=== PATIENT | female | born 1955 | race Caucasian/White ===

== ENCOUNTER 2018-06-12 03:42 | Inpatient (IN) | payer MEDICARE, MEDICAID ==
[~2018-06-12] VITALS: Ht 165.1 cm; Wt 66.7 kg
[~2018-06-12 03:42] MED LIST: INSUINJ47 SC; LEVEMIR SC; PANT40TA2 PO
[2018-06-12] MEDS ORDERED: ONDANSETRON HCL 4 MG/2 ML VIAL IV ONE (05:45)
[2018-06-12 05:49] LABS: Urine Bacteria FEW /hpf (None Seen); Urine Blood Negative /uL (Negative); Urine Specific Gravity 1.009 (1.001-1.035); Urine WBC 4 /hpf (0 - 5)
[2018-06-12 07:25] LABS: Albumin 2.2 g/dL (3.4-5.0); Anion Gap 9 (5-15); Aspartate Aminotransferase 845 U/L (15-37); BUN/Creatinine Ratio 17.6; Blood Urea Nitrogen 9 mg/dL (7-18); Calcium 7.6 mg/dL (8.5-10.1); Carbon Dioxide 23 mmol/L (21-32); Chloride 103 mmol/L (98-107); GFR African American 158 mL/min; GFR Non-African American 130 mL/min; Glucose 85 mg/dL (74-106); Potassium 3.8 mmol/L (3.5-5.1); Sodium 135 mmol/L (136-145)
[2018-06-12 07:28] LABS: Amylase 67 U/L (25-115); Lipase 494 U/L (73-393)
[2018-06-12 07:36] LABS: Alanine Aminotransferase 1171 U/L (13-56); Alkaline Phosphatase 592 U/L (45-117); Bilirubin, Total 12.9 mg/dL (0.2-1.0); Magnesium 2.3 mg/dL (1.6-2.6); Total Protein 5.8 g/dL (6.4-8.2)
[2018-06-12 07:42] LABS: Hematocrit 36.9 % (36.0-46.0); Hemoglobin 12.3 g/dL (12.2-16.2); INR 0.97 (0.9-1.15); Mean Corpuscular Hemoglobin 29.9 pg (28.0-32.0); Mean Corpuscular Hgb Conc. 33.3 g/dL (32.0-36.0); Mean Corpuscular Volume 89.7 fL (80.0-100.0); Partial Thromboplastin Time 29.4 sec (23.78-33.04); Platelet Count (auto) 293 10^3/uL (140-450); Prothrombin Time 10.4 sec (9.27-12.13); Red Blood Cells 4.12 10^6/uL (4.0-5.20); White Blood Cell 8.4 10^3/uL (4.4-10.8)
[2018-06-12 07:46] LABS: Basophils % (manual) 0 (0.0-2.0); Blast Cells 0; Metamyelocytes % 0; Myelocytes % 0; Promyelocytes % 0; Reactive Lymphocytes 0
[2018-06-12] MEDS ORDERED: NITROGLYCERIN 0.4 MG SL TAB SL PRN (08:45)
[2018-06-12] MEDS ORDERED: LACTULOSE 20Gm/30ML SOLN PO PRN (08:45)
[2018-06-12] MEDS ORDERED: MORPHINE SULFATE 4 MG/ML SYR/VIAL IV PRN (08:45)
[2018-06-12] MEDS ORDERED: DEXTROSE (50%) 50ML SYRG IV PRN (08:45)
[2018-06-12] MEDS: SODIUM CHLORIDE 0.9% 1,000 ML IV SCH ×3 (09:08→22:22)
[2018-06-12] MEDS: PANTOPRAZOLE 40 MG TAB PO SCH (09:11)
[2018-06-12] MEDS: cefTRIAXone 1GM/50ML D5W 50 ML IV SCH (09:11)
[2018-06-12] MEDS: ENOXAPARIN SOD 40 MG/0.4 ML SYRINGE SC SCH (09:11)
[2018-06-12 10:20] LABS: Band Neutrophils % (manual) 3; Eosinophils % (manual) 1 (0-7); Lymphocytes % (manual) 12 (10.0-50.0); Monocytes % (manual) 6 (0-12)
[2018-06-12 12:36] VITALS: BP 123/62
[2018-06-12] MEDS: ACCU-CHEK COMFORT CURVE STRIP VI SCH ×3 (12:57→20:15)
[2018-06-12] MEDS: metroNIDAZOLE 500MG/100ML 100 ML IV SCH ×2 (14:54→22:24)
[2018-06-12 17:21] VITALS: BP 123/62
[2018-06-12] MEDS ORDERED: InsuLIN REG 1unit/0.01ml Soln (100units/ml) SC SCH (20:30)
[2018-06-12 22:00] VITALS: BP 114/60
[2018-06-13] MEDS: ACCU-CHEK COMFORT CURVE STRIP VI SCH ×7 (00:25→23:27)
[2018-06-13] MEDS: InsuLIN REG 1unit/0.01ml Soln (100units/ml) SC SCH ×7 (00:28→23:27)
[2018-06-13] MEDS: MORPHINE SULFATE 4 MG/ML SYR/VIAL IV PRN (00:29)
[2018-06-13] MEDS: SODIUM CHLORIDE 0.9% 1,000 ML IV SCH ×4 (04:39→20:00)
[2018-06-13 05:23] VITALS: BP 116/58
[2018-06-13] MEDS: metroNIDAZOLE 500MG/100ML 100 ML IV SCH ×3 (05:44→20:12)
[2018-06-13 06:40] LABS: Potassium 3.5 mmol/L (3.5-5.1)
[2018-06-13 06:55] LABS: Hematocrit 33.9 % (36.0-46.0); Hemoglobin 11.5 g/dL (12.2-16.2); Mean Corpuscular Hemoglobin 30.7 pg (28.0-32.0); Mean Corpuscular Volume 90.3 fL (80.0-100.0); Platelet Count (auto) 275 10^3/uL (140-450); Red Blood Cells 3.76 10^6/uL (4.0-5.20); Red Cell Distribution Width 16.3 % (11.8-14.3); White Blood Cell 6.5 10^3/uL (4.4-10.8)
[2018-06-13 06:57] LABS: Albumin 1.9 g/dL (3.4-5.0); BUN/Creatinine Ratio 16.3; Bilirubin, Total 11.3 mg/dL (0.2-1.0); Calcium 7.5 mg/dL (8.5-10.1); Total Protein 5.1 g/dL (6.4-8.2)
[2018-06-13 07:03] LABS: Band Neutrophils % (manual) 0; Basophils % (manual) 0 (0.0-2.0); Blast Cells 0; Metamyelocytes % 0; Myelocytes % 0; Promyelocytes % 0; Reactive Lymphocytes 0
[2018-06-13 07:08] LABS: Cholesterol 325 mg/dL (< 200); HDL Cholesterol 7 mg/dL (40-59); LDL Cholesterol 273 mg/dL (< 100); Triglycerides 322 mg/dL (< 150)
[2018-06-13 08:27] VITALS: BP 125/62
[2018-06-13 09:55] LABS: Eosinophils % (manual) 6 (0-7); Lymphocytes % (manual) 17 (10.0-50.0); Monocytes % (manual) 8 (0-12)
[2018-06-13] MEDS: ENOXAPARIN SOD 40 MG/0.4 ML SYRINGE SC SCH (10:00)
[2018-06-13] MEDS: PANTOPRAZOLE 40 MG TAB PO SCH (10:00)
[2018-06-13 10:06] LABS: Hepatitis B Surface Antibody Negative
[2018-06-13 10:42] LABS: Hepatitis A Total Antibody Negative
[2018-06-13] MEDS: cefTRIAXone 1GM/50ML D5W 50 ML IV SCH (11:30)
[2018-06-13 13:00] VITALS: BP 121/58
[2018-06-13 14:31] LABS: Hepatitis A Ab IgM Negative; Hepatitis C Antibody Negative (Negative)
[2018-06-13 14:34] LABS: Hepatitis B Core IgM Positive; Hepatitis B Core Total AB Positive
[2018-06-13 14:35] LABS: Hepatitis B Surface Antigen Positive (Negative)
[2018-06-13 17:00] VITALS: BP 123/65
[2018-06-13] MEDS: hydrOXYzine HCL 10 MG TAB PO PRN (20:11)
[2018-06-13 22:00] VITALS: BP 131/63
[2018-06-14] MEDS: InsuLIN REG 1unit/0.01ml Soln (100units/ml) SC SCH ×6 (03:17→23:52)
[2018-06-14] MEDS: ACCU-CHEK COMFORT CURVE STRIP VI SCH ×6 (03:17→23:52)
[2018-06-14 05:00] VITALS: BP 122/55
[2018-06-14] MEDS: SODIUM CHLORIDE 0.9% 1,000 ML IV SCH ×3 (06:00→20:39)
[2018-06-14] MEDS: metroNIDAZOLE 500MG/100ML 100 ML IV SCH ×3 (06:00→21:38)
[2018-06-14 07:02] LABS: Potassium 3.5 mmol/L (3.5-5.1)
[2018-06-14 07:08] LABS: Albumin 1.9 g/dL (3.4-5.0); Bilirubin, Total 12.4 mg/dL (0.2-1.0); Calcium 7.8 mg/dL (8.5-10.1); Total Protein 4.9 g/dL (6.4-8.2)
[2018-06-14 08:41] VITALS: BP 121/57
[2018-06-14] MEDS: cefTRIAXone 1GM/50ML D5W 50 ML IV SCH (09:00)
[2018-06-14] MEDS: PANTOPRAZOLE 40 MG TAB PO SCH (09:01)
[2018-06-14] MEDS: ENOXAPARIN SOD 40 MG/0.4 ML SYRINGE SC SCH (09:01)
[2018-06-14] MEDS: MORPHINE SULFATE 4 MG/ML SYR/VIAL IV PRN ×2 (12:20→23:52)
[2018-06-14 13:13] VITALS: BP 116/52
[2018-06-14 17:25] VITALS: BP 126/64
[2018-06-14 22:13] VITALS: BP 135/63
[2018-06-15] MEDS: InsuLIN REG 1unit/0.01ml Soln (100units/ml) SC SCH ×5 (04:00→20:50)
[2018-06-15] MEDS: MORPHINE SULFATE 4 MG/ML SYR/VIAL IV PRN ×2 (04:04→15:13)
[2018-06-15] MEDS: SODIUM CHLORIDE 0.9% 1,000 ML IV SCH ×4 (04:21→23:19)
[2018-06-15] MEDS: ACCU-CHEK COMFORT CURVE STRIP VI SCH ×5 (04:21→20:54)
[2018-06-15] MEDS: metroNIDAZOLE 500MG/100ML 100 ML IV SCH ×3 (05:45→21:35)
[2018-06-15 07:27] LABS: Albumin 1.9 g/dL (3.4-5.0)
[2018-06-15 07:32] LABS: Bilirubin, Direct 11.7 mg/dL (0-0.2); Bilirubin, Total 13.9 mg/dL (0.2-1.0); Total Protein 4.9 g/dL (6.4-8.2)
[2018-06-15 08:43] VITALS: BP 111/50
[2018-06-15] MEDS: cefTRIAXone 1GM/50ML D5W 50 ML IV SCH (09:15)
[2018-06-15] MEDS: PANTOPRAZOLE 40 MG TAB PO SCH (09:15)
[2018-06-15] MEDS: ENOXAPARIN SOD 40 MG/0.4 ML SYRINGE SC SCH (09:16)
[2018-06-15] MEDS: NutriHep RTU 240 mL Unflavored PO SCH (10:00)
[2018-06-15] MEDS: ALBUMIN 25% 100 ML IV SCH ×2 (11:58→17:44)
[2018-06-15 12:00] VITALS: BP 122/62
[2018-06-15] MEDS ORDERED: MIDAZOLAM HCL 1MG/1ML-2 ML VIAL ONE (14:07)
[2018-06-15] MEDS ORDERED: fentaNYL CITRATE 100 MCG/2 ML VL ONE (14:08)
[2018-06-15] MEDS ORDERED: LIDOCAINE 2% (LOCAL ANESTH.) PF 5ml SDV ONE (14:14)
[2018-06-15] MEDS ORDERED: GELATIN 1 SPONGE SIZE 100 TOP ONE (14:30)
[2018-06-15] MEDS: ONDANSETRON HCL 4 MG/2 ML VIAL IV PRN (15:12)
[2018-06-15 16:56] VITALS: BP 118/60
[2018-06-15] MEDS ORDERED: INSULIN LANTUS (GLARGINE) 1 /0.01ml (100units/ml) SC ONE (21:00)
[2018-06-15 22:00] VITALS: BP 134/60
[2018-06-16] MEDS: ACCU-CHEK COMFORT CURVE STRIP VI SCH ×7 (00:06→23:57)
[2018-06-16] MEDS: InsuLIN REG 1unit/0.01ml Soln (100units/ml) SC SCH ×6 (00:06→19:53)
[2018-06-16] MEDS: ALBUMIN 25% 100 ML IV SCH ×5 (00:18→23:56)
[2018-06-16] MEDS: MORPHINE SULFATE 4 MG/ML SYR/VIAL IV PRN ×5 (02:32→21:31)
[2018-06-16 05:00] VITALS: BP 125/52
[2018-06-16] MEDS: SODIUM CHLORIDE 0.9% 1,000 ML IV SCH ×4 (05:52→19:19)
[2018-06-16] MEDS: metroNIDAZOLE 500MG/100ML 100 ML IV SCH ×3 (07:15→21:31)
[2018-06-16 07:44] LABS: Basophils # (auto) 0.1 uL; Basophils % (auto) 1.4 % (0.0-2.0); Eosinophils # (auto) 0.1 uL; Eosinophils % (auto) 1.4 % (0.0-7.0); Hematocrit 30.4 % (36.0-46.0); Hemoglobin 10.1 g/dL (12.2-16.2); Lymphocytes # (auto) 0.7 uL; Lymphocytes % (auto) 8.5 % (10.0-50.0); Mean Corpuscular Hemoglobin 30.3 pg (28.0-32.0); Mean Corpuscular Hgb Conc. 33.3 g/dL (32.0-36.0); Mean Corpuscular Volume 90.7 fL (80.0-100.0); Monocytes # (auto) 0.9 uL; Monocytes % (auto) 11.9 % (0.0-12.0); Neutrophils # (auto) 5.9 uL; Neutrophils % (auto) 76.8 % (37.0-80.0); Platelet Count (auto) 256 10^3/uL (140-450); Red Blood Cells 3.35 10^6/uL (4.0-5.20); Red Cell Distribution Width 15.9 % (11.8-14.3); White Blood Cell 7.7 10^3/uL (4.4-10.8)
[2018-06-16] MEDS ORDERED: GASTROGRAFIN 30 ML SOL ONE (07:50)
[2018-06-16 07:59] LABS: Potassium 3.5 mmol/L (3.5-5.1)
[2018-06-16 08:00] VITALS: BP 123/53
[2018-06-16 08:12] LABS: Albumin 3.5 g/dL (3.4-5.0); BUN/Creatinine Ratio 10.6; Bilirubin, Total 14.5 mg/dL (0.2-1.0); Calcium 8.2 mg/dL (8.5-10.1); Total Protein 5.7 g/dL (6.4-8.2)
[2018-06-16] MEDS: PANTOPRAZOLE 40 MG TAB PO SCH (09:37)
[2018-06-16] MEDS: ENOXAPARIN SOD 40 MG/0.4 ML SYRINGE SC SCH (09:37)
[2018-06-16] MEDS: cefTRIAXone 1GM/50ML D5W 50 ML IV SCH (09:37)
[2018-06-16] MEDS ORDERED: IOHEXOL 300 MG/ML 100ML BOTTLE IJ ONE ×2 (09:43→10:03)
[2018-06-16] MEDS: ENTECAVIR 0.5 MG TABLET PO SCH (10:00)
[2018-06-16] MEDS: NutriHep RTU 240 mL Unflavored PO SCH (10:00)
[2018-06-16 12:00] VITALS: BP 117/55
[2018-06-16] MEDS ORDERED: PANTOPRAZOLE 40 MG/10 ML VIAL IV ONE (12:30)
[2018-06-16 16:00] VITALS: BP 121/53
[2018-06-16 22:00] VITALS: BP 127/48
[2018-06-17] MEDS: InsuLIN REG 1unit/0.01ml Soln (100units/ml) SC SCH ×6 (00:09→22:02)
[2018-06-17] MEDS: hydrOXYzine HCL 10 MG TAB PO PRN (00:09)
[2018-06-17] MEDS: SODIUM CHLORIDE 0.9% 1,000 ML IV SCH ×4 (02:34→21:59)
[2018-06-17] MEDS: MORPHINE SULFATE 4 MG/ML SYR/VIAL IV PRN ×3 (02:34→17:37)
[2018-06-17] MEDS: ACCU-CHEK COMFORT CURVE STRIP VI SCH ×5 (04:04→22:00)
[2018-06-17 05:00] VITALS: BP 130/64
[2018-06-17] MEDS: ALBUMIN 25% 100 ML IV SCH (05:24)
[2018-06-17] MEDS: metroNIDAZOLE 500MG/100ML 100 ML IV SCH ×3 (06:44→22:00)
[2018-06-17] MEDS: cefTRIAXone 1GM/50ML D5W 50 ML IV SCH (08:41)
[2018-06-17] MEDS: PANTOPRAZOLE 40 MG/10 ML VIAL IV SCH (08:41)
[2018-06-17] MEDS: ENOXAPARIN SOD 40 MG/0.4 ML SYRINGE SC SCH (08:42)
[2018-06-17] MEDS: ENTECAVIR 0.5 MG TABLET PO SCH (08:46)
[2018-06-17] MEDS: NutriHep RTU 240 mL Unflavored PO SCH (08:46)
[2018-06-17 08:50] VITALS: BP 146/60
[2018-06-17 10:06] LABS: % Iron Saturation 44.4 % (15-50)
[2018-06-17 10:15] LABS: Ferritin 1260.7 ng/mL (10-322); Folate (Folic Acid) 18.08 ng/mL (5.38-24)
[2018-06-17 13:00] VITALS: BP 131/65
[2018-06-17 17:00] VITALS: BP 151/65
[2018-06-17 22:00] VITALS: BP 148/61
[2018-06-18] MEDS: ACCU-CHEK COMFORT CURVE STRIP VI SCH ×6 (00:16→20:20)
[2018-06-18] MEDS: MORPHINE SULFATE 4 MG/ML SYR/VIAL IV PRN ×4 (00:23→20:20)
[2018-06-18] MEDS: InsuLIN REG 1unit/0.01ml Soln (100units/ml) SC SCH ×6 (04:37→20:34)
[2018-06-18] MEDS: ONDANSETRON HCL 4 MG/2 ML VIAL IV PRN ×2 (04:43→20:34)
[2018-06-18] MEDS: SODIUM CHLORIDE 0.9% 1,000 ML IV SCH ×3 (04:44→17:59)
[2018-06-18 05:38] VITALS: BP 138/52
[2018-06-18] MEDS: metroNIDAZOLE 500MG/100ML 100 ML IV SCH ×3 (06:27→21:31)
[2018-06-18 06:29] LABS: Albumin 2.9 g/dL (3.4-5.0); BUN/Creatinine Ratio 9.6; Calcium 7.8 mg/dL (8.5-10.1)
[2018-06-18 06:33] LABS: Bilirubin, Total 15.5 mg/dL (0.2-1.0)
[2018-06-18 08:27] VITALS: BP 138/53
[2018-06-18] MEDS: cefTRIAXone 1GM/50ML D5W 50 ML IV SCH (08:30)
[2018-06-18] MEDS: PANTOPRAZOLE 40 MG/10 ML VIAL IV SCH (09:34)
[2018-06-18] MEDS: ENOXAPARIN SOD 40 MG/0.4 ML SYRINGE SC SCH (09:34)
[2018-06-18] MEDS: NutriHep RTU 240 mL Unflavored PO SCH (10:00)
[2018-06-18] MEDS: ENTECAVIR 0.5 MG TABLET PO SCH (10:00)
[2018-06-18 12:57] VITALS: BP 146/75
[2018-06-18 16:46] VITALS: BP 151/63
[2018-06-18 22:00] VITALS: BP 140/70
[2018-06-19] MEDS: ACCU-CHEK COMFORT CURVE STRIP VI SCH ×6 (00:28→19:49)
[2018-06-19] MEDS: InsuLIN REG 1unit/0.01ml Soln (100units/ml) SC SCH ×6 (00:28→19:49)
[2018-06-19] MEDS: SODIUM CHLORIDE 0.9% 1,000 ML IV SCH ×4 (00:39→20:39)
[2018-06-19] MEDS: ONDANSETRON HCL 4 MG/2 ML VIAL IV PRN ×4 (00:52→19:52)
[2018-06-19] MEDS: MORPHINE SULFATE 4 MG/ML SYR/VIAL IV PRN ×4 (00:52→19:50)
[2018-06-19 05:00] VITALS: BP 144/75
[2018-06-19] MEDS: metroNIDAZOLE 500MG/100ML 100 ML IV SCH ×3 (06:02→21:43)
[2018-06-19 07:53] LABS: Albumin 2.6 g/dL (3.4-5.0); Bilirubin, Total 15.8 mg/dL (0.2-1.0); Calcium 7.6 mg/dL (8.5-10.1)
[2018-06-19 07:55] LABS: Potassium 2.9 mmol/L (3.5-5.1)
[2018-06-19] MEDS ORDERED: POTASSIUM CHL 20MEQ/100ML 100 ML IV ONE (08:45)
[2018-06-19] MEDS ORDERED: POTASSIUM CHL 20 Meq TABLET PO ONE ×2 (08:45→12:00)
[2018-06-19 09:00] VITALS: BP 138/69
[2018-06-19] MEDS: cefTRIAXone 1GM/50ML D5W 50 ML IV SCH (09:28)
[2018-06-19] MEDS: NutriHep RTU 240 mL Unflavored PO SCH (10:00)
[2018-06-19] MEDS: ENTECAVIR 0.5 MG TABLET PO SCH (10:00)
[2018-06-19] MEDS: ENOXAPARIN SOD 40 MG/0.4 ML SYRINGE SC SCH (10:25)
[2018-06-19] MEDS: PANTOPRAZOLE 40 MG/10 ML VIAL IV SCH (10:25)
[2018-06-19 13:18] VITALS: BP 127/67
[2018-06-19 17:00] VITALS: BP 120/60
[2018-06-19 21:52] VITALS: BP 132/64
[2018-06-20] MEDS: InsuLIN REG 1unit/0.01ml Soln (100units/ml) SC SCH ×5 (00:17→16:00)
[2018-06-20] MEDS: ACCU-CHEK COMFORT CURVE STRIP VI SCH ×5 (00:17→16:00)
[2018-06-20] MEDS: SODIUM CHLORIDE 0.9% 1,000 ML IV SCH ×3 (03:19→16:39)
[2018-06-20 04:54] VITALS: BP 135/62
[2018-06-20] MEDS: metroNIDAZOLE 500MG/100ML 100 ML IV SCH ×2 (05:38→14:04)
[2018-06-20] MEDS: MORPHINE SULFATE 4 MG/ML SYR/VIAL IV PRN ×2 (05:45→12:01)
[2018-06-20] MEDS: ONDANSETRON HCL 4 MG/2 ML VIAL IV PRN ×2 (05:46→13:58)
[2018-06-20 06:46] LABS: Potassium 3.7 mmol/L (3.5-5.1)
[2018-06-20 06:53] LABS: Albumin 2.6 g/dL (3.4-5.0); Bilirubin, Total 16.4 mg/dL (0.2-1.0); Calcium 7.8 mg/dL (8.5-10.1); Total Protein 4.9 g/dL (6.4-8.2)
[2018-06-20 09:00] VITALS: BP 132/59
[2018-06-20] MEDS: ENTECAVIR 0.5 MG TABLET PO SCH (10:00)
[2018-06-20] MEDS: NutriHep RTU 240 mL Unflavored PO SCH (10:00)
[2018-06-20] MEDS: PANTOPRAZOLE 40 MG/10 ML VIAL IV SCH (10:04)
[2018-06-20] MEDS: cefTRIAXone 1GM/50ML D5W 50 ML IV SCH (10:04)
[2018-06-20] MEDS: ENOXAPARIN SOD 40 MG/0.4 ML SYRINGE SC SCH (10:05)
[2018-06-20 13:00] VITALS: BP 141/58
== END 2018-06-20 17:00 | disposition home or self-care (01) | DRG 441 ==
LOC: ER 03:42 → EDBD 03:42 → TELE 03:43 → TELE-EAST 11:07
PROVIDERS: ADMIT Internal Medicine; ATTEND Internal Medicine
PROC: 0BBJ3ZX Excision of Left Lower Lung Lobe, Percutaneous Approach, Diagnostic (ICD-10-PCS; principal; 2018-06-15)
DX: B16.9 Acute hepatitis B without delta-agent and without hepatic coma (principal); K85.90 Acute pancreatitis without necrosis or infection, unspecified; K83.1 Obstruction of bile duct; K86.1 Other chronic pancreatitis; C24.9 Malignant neoplasm of biliary tract, unspecified; K74.60 Unspecified cirrhosis of liver; K72.90 Hepatic failure, unspecified without coma; E27.8 Other specified disorders of adrenal gland; E11.649 Type 2 diabetes mellitus with hypoglycemia without coma; K81.9 Cholecystitis, unspecified; E11.40 Type 2 diabetes mellitus with diabetic neuropathy, unspecified; E78.5 Hyperlipidemia, unspecified; F17.210 Nicotine dependence, cigarettes, uncomplicated; S61.011A Laceration without foreign body of right thumb without damage to nail, initial encounter; R91.1 Solitary pulmonary nodule; X58.XXXA Exposure to other specified factors, initial encounter; I10 Essential (primary) hypertension; Z88.5 Allergy status to narcotic agent; Z88.1 Allergy status to other antibiotic agents; Y93.89 Activity, other specified; Y92.89 Other specified places as the place of occurrence of the external cause; Y99.8 Other external cause status
CPT/HCPCS: 10022; 36415; 71045; 71250; 71260; 74176; 74177; 74181; 76705; 77012; 80053; 80061; 80074; 80076; 81001; 82105; 82140; 82150; 82378; 82607; 82728; 82746; 82962; 83036; 83540; 83550; 83690; 83735; 83880; 84484; 85007; 85025; 85027; 85610; 85730; 86038; 86300; 86301; 86304; 86704; 86706; 86708; 86803; 87081; 87340; 87517; 93005; 96372; 96374; 96375; C9113; G0378; J0696; J1815; J2001; J2250; J2405; J3480; J3490; P9047

== ENCOUNTER 2022-01-22 12:57 | Inpatient (IN) | payer MEDICARE, MEDICAID ==
[2022-01-22] VITALS (19 sets, daily range): BP systolic 97–142; BP diastolic 41–56
[~2022-01-22] VITALS: Ht 160 cm; Wt 65.6 kg
[2022-01-22] MEDS ORDERED: SODIUM BICARBONATE 8.4% INJ 50ML SYRINGE ONE ×3 (13:01→18:15)
[2022-01-22] MEDS ORDERED: ETOMIDATE (2MG/ML) 20ML VIAL IV ONE ×2 (13:16→13:45)
[2022-01-22] MEDS ORDERED: PROPOFOL 100 ML IV ONE (13:16)
[2022-01-22] MEDS ORDERED: SUCCINYLCHOLINE CHLORIDE 20 MG/ML 10ML VIAL IV ONE ×3 (13:16→16:00)
[2022-01-22] MEDS ORDERED: SODIUM BICARBONATE 8.4 % INJ 50ML VIAL IV ONE ×5 (13:30→23:00)
[2022-01-22] MEDS: PROPOFOL 100 ML IV SCH (13:30)
[2022-01-22] MEDS ORDERED: InsuLIN REG 1unit/0.01ml Soln (100units/ml) IV ONE ×2 (13:30→14:45)
[2022-01-22 13:36] LABS: Basophils # (auto) 0 10 ^3/uL (0-0.2); Basophils % (auto) 0.1 % (0.0-2.0); Eosinophils # (auto) 0 10 ^3/uL (0-0.8); Lymphocytes # (auto) 1.4 10 ^3/uL (0.4-5.4); Monocytes # (auto) 0.3 10 ^3/uL (0-1.3); Monocytes % (auto) 2.9 % (0.0-12.0); Nucleated Red Blood Cells % 0.4 %
[2022-01-22 13:38] LABS: Eosinophils % (auto) 0.1 % (0.0-7.0); Hematocrit 31.7 % (36.0-46.0); Hemoglobin 9.2 g/dL (12.2-16.2); Mean Corpuscular Hemoglobin 32.7 pg (28.0-32.0); Mean Corpuscular Volume 112.7 fL (80.0-100.0); Neutrophils % (auto) 84.9 % (37.0-80.0); Red Blood Cells 2.81 10^6/uL (4.0-5.20); White Blood Cell 11.8 10^3/uL (4.4-10.8)
[2022-01-22] MEDS ORDERED: SODIUM CHLORIDE 0.9% 1,000 ML IV ONE ×2 (13:45)
[2022-01-22 14:03] LABS: Albumin 2.3 g/dL (3.4-5.0); Calcium 8.2 mg/dL (8.5-10.1); Magnesium 2.6 mg/dL (1.6-2.6)
[2022-01-22 14:06] LABS: Bilirubin, Total 0.5 mg/dL (0.2-1.0); Total Protein 5.9 g/dL (6.4-8.2)
[2022-01-22 14:08] LABS: Urine Bacteria NONE SEEN /hpf (None Seen); Urine Blood TRACE /uL (Negative); Urine Specific Gravity 1.018 (1.001-1.035); Urine WBC 20 /hpf (0 - 5); Urine WBC Clumps PRESENT /hpf (None Seen)
[2022-01-22] MEDS ORDERED: MIDAZOLAM DRIP 50 mg/50mL 50 ML IV SCH (14:15)
[2022-01-22] MEDS ORDERED: DEXTROSE (50%) 50ML SYRG IV PRN ×4 (14:15→17:00)
[2022-01-22] MEDS ORDERED: InsuLIN R (HUMAN) 100 UNITS in SODIUM CHL 0.9% 99 ML IV SCH ×4 (14:15→17:00)
[2022-01-22] MEDS ORDERED: NOREPINEPHRINE 8 MG/250ML KIT 250 ML IV SCH (14:15)
[2022-01-22] MEDS ORDERED: fentaNYL Drip 2500mCg/250mlNS 250 ML IV SCH (14:15)
[2022-01-22 14:20] LABS: Potassium 6.1 mmol/L (3.5-5.1)
[2022-01-22] MEDS ORDERED: cefTRIAXone 1GM/50ML D5W 50 ML IV ONE (14:30)
[2022-01-22] MEDS ORDERED: INSULIN LANTUS (GLARGINE) 1 /0.01ml (100units/ml) SC ONE ×2 (14:30→17:00)
[2022-01-22] MEDS: SODIUM CHLORIDE 0.9% 1,000 ML IV SCH ×3 (14:30→23:00)
[2022-01-22 14:38] LABS: Alcohol, Urine < 3.0 mg/dL (0-10); Amphetamine Screen, Urine NEGATIVE (NEGATIVE); Barbiturate Scree,Urine NEGATIVE (NEGATIVE); Benzodiazephine Screen, Urine NEGATIVE (NEGATIVE); Cannabinoid Screen, Urine NEGATIVE (NEGATIVE); Cocaine Screen, Urine NEGATIVE (NEGATIVE); Opiate Scree,Urine NEGATIVE (NEGATIVE); Phencyclidine Screen, Urine NEGATIVE (NEGATIVE)
[2022-01-22] MEDS ORDERED: MIDAZOLAM HCL 5 MG/ML-1ML VIAL IV ONE (14:45)
[2022-01-22] MEDS ORDERED: ACCU-CHEK COMFORT CURVE STRIP VI SCH ×2 (15:00→18:00)
[2022-01-22] MEDS ORDERED: CALCIUM GLUC 1,000mg/50ml-NS 50 ML IV ONE (15:15)
[2022-01-22] MEDS ORDERED: SODIUM BICARBONATE 8.4% INJ 50ML SYRINGE IV ONE (15:15)
[2022-01-22] MEDS: ACCU-CHEK COMFORT CURVE STRIP VI SCH ×6 (15:17→22:30)
[2022-01-22 15:53] LABS: BUN/Creatinine Ratio 18.7; Calcium 7.6 mg/dL (8.5-10.1); Potassium 4.9 mmol/L (3.5-5.1)
[2022-01-22 16:11] LABS: INR 1.18 (0.9-1.15); Partial Thromboplastin Time 24.4 sec (23.6-33.0)
[2022-01-22] MEDS ORDERED: MIDAZOLAM HCL 2MG/2ML 2ml VIAL (1mg/ml) IV PRN (17:00)
[2022-01-22] MEDS: fentaNYL Drip 2500mCg/250mlNS 250 ML IV SCH (17:00)
[2022-01-22] MEDS ORDERED: NITROGLYCERIN 0.4 MG SL TAB SL PRN (17:00)
[2022-01-22] MEDS: InsuLIN R (HUMAN) 100 UNITS in SODIUM CHL 0.9% 99 ML IV SCH (17:15)
[2022-01-22] MEDS ORDERED: fentaNYL Drip 2500mCg/250mlNS 250 ML IV ONE (17:23)
[2022-01-22] MEDS: NOREPINEPHRINE 8 MG/250ML KIT 250 ML IV SCH (18:13)
[2022-01-22] MEDS ORDERED: MAGNESIUM SULFATE 1GM/100ML 200 ML IV ONE (18:15)
[2022-01-22] MEDS ORDERED: POTASSIUM CHL 20MEQ/100ML 100 ML IV PRN (18:15)
[2022-01-22] MEDS ORDERED: SODIUM CHLORIDE 0.9% 1,000 ML IV SCH ×3 (18:30→21:00)
[2022-01-22 18:45] LABS: Magnesium 1.9 mg/dL (1.6-2.6); Phosphorus 1.3 mg/dL (2.5-4.90)
[2022-01-22 20:00] LABS: BUN/Creatinine Ratio 19.2; Calcium 7.2 mg/dL (8.5-10.1); Potassium 3.5 mmol/L (3.5-5.1)
[2022-01-23] VITALS (68 sets, daily range): BP systolic 93–160; BP diastolic 40–58
[2022-01-23] MEDS: PROPOFOL 100 ML IV SCH ×2 (00:49→06:59)
[2022-01-23] MEDS: InsuLIN R (HUMAN) 100 UNITS in SODIUM CHL 0.9% 99 ML IV SCH ×2 (00:52→22:38)
[2022-01-23] MEDS: ACCU-CHEK COMFORT CURVE STRIP VI SCH ×15 (01:24→22:36)
[2022-01-23 01:32] LABS: BUN/Creatinine Ratio 22.1; Calcium 7.6 mg/dL (8.5-10.1)
[2022-01-23 01:46] LABS: Potassium 2.6 mmol/L (3.5-5.1)
[2022-01-23] MEDS: POTASSIUM CHL 20MEQ/100ML 200 ML IV PRN ×2 (02:32→04:40)
[2022-01-23 02:35] LABS: Basophils # (auto) 0 10 ^3/uL (0-0.2); Eosinophils # (auto) 0 10 ^3/uL (0-0.8); Monocytes # (auto) 0.4 10 ^3/uL (0-1.3); Neutrophils # (auto) 3.6 10 ^3/uL (1.6-8.6); White Blood Cell 4.6 10^3/uL (4.4-10.8)
[2022-01-23 02:45] LABS: Basophils % (auto) 0.4 % (0.0-2.0); Eosinophils % (auto) 0.6 % (0.0-7.0); Hematocrit 21.3 % (36.0-46.0); Hemoglobin 7.6 g/dL (12.2-16.2); Lymphocytes # (auto) 0.5 10 ^3/uL (0.4-5.4); Lymphocytes % (auto) 10.7 % (10.0-50.0); Mean Corpuscular Hemoglobin 32.7 pg (28.0-32.0); Mean Corpuscular Hgb Conc. 35.4 g/dL (32.0-36.0); Mean Corpuscular Volume 92.3 fL (80.0-100.0); Monocytes % (auto) 9.3 % (0.0-12.0); Nucleated Red Blood Cells % 0.2 %; Red Blood Cells 2.31 10^6/uL (4.0-5.20)
[2022-01-23 03:57] LABS: Basophils # (auto) 0 10 ^3/uL (0-0.2); Hemoglobin 8.3 g/dL (12.2-16.2)
[2022-01-23 04:04] LABS: Basophils % (auto) 0.7 % (0.0-2.0); Eosinophils # (auto) 0.2 10 ^3/uL (0-0.8); Eosinophils % (auto) 4.1 % (0.0-7.0); Hematocrit 24.1 % (36.0-46.0); Lymphocytes # (auto) 0.5 10 ^3/uL (0.4-5.4); Lymphocytes % (auto) 10.2 % (10.0-50.0); Mean Corpuscular Hemoglobin 32.8 pg (28.0-32.0); Mean Corpuscular Hgb Conc. 34.6 g/dL (32.0-36.0); Mean Corpuscular Volume 94.8 fL (80.0-100.0); Monocytes # (auto) 0.3 10 ^3/uL (0-1.3); Monocytes % (auto) 6.2 % (0.0-12.0); Neutrophils % (auto) 78.8 % (37.0-80.0); Nucleated Red Blood Cells % 0.1 %; Red Blood Cells 2.54 10^6/uL (4.0-5.20); White Blood Cell 5.1 10^3/uL (4.4-10.8)
[2022-01-23 04:07] LABS: Red Cell Distribution Width 22.5 % (11.8-14.3)
[2022-01-23 04:20] LABS: Albumin 2.1 g/dL (3.4-5.0); BUN/Creatinine Ratio 21.3; Bilirubin, Total 0.3 mg/dL (0.2-1.0); Calcium 7.6 mg/dL (8.5-10.1); Total Protein 5.2 g/dL (6.4-8.2)
[2022-01-23] MEDS: SODIUM CHLORIDE 0.9% 1,000 ML IV SCH (06:08)
[2022-01-23 08:06] LABS: Calcium 7.2 mg/dL (8.5-10.1); Potassium 4.1 mmol/L (3.5-5.1)
[2022-01-23 08:08] LABS: BUN/Creatinine Ratio 21.8
[2022-01-23 09:57] LABS: Magnesium 1.9 mg/dL (1.6-2.6); Phosphorus 1.4 mg/dL (2.5-4.90)
[2022-01-23] MEDS ORDERED: levoFLOXacin 500MG 100 ML IV SCH ×2 (10:00)
[2022-01-23] MEDS ORDERED: ENOXAPARIN SOD 30 MG/0.3 ML SYRINGE SC SCH (10:00)
[2022-01-23] MEDS: INSULIN LANTUS (GLARGINE) 1 /0.01ml (100units/ml) SC SCH (10:00)
[2022-01-23] MEDS ORDERED: INSULIN LANTUS (GLARGINE) 1 /0.01ml (100units/ml) SC SCH (10:00)
[2022-01-23] MEDS: CIPROFLOXACIN 400MG/200ML 200 ML IV SCH ×2 (11:38→21:46)
[2022-01-23] MEDS: D5W/SOD CHL 0.45% 1,000 ML IV SCH ×2 (11:38→21:14)
[2022-01-23] MEDS: NOREPINEPHRINE 8 MG/250ML KIT 250 ML IV SCH (16:55)
[2022-01-23] MEDS: fentaNYL Drip 2500mCg/250mlNS 250 ML IV SCH (16:55)
[2022-01-23 21:34] LABS: BUN/Creatinine Ratio 18.9; Calcium 7.3 mg/dL (8.5-10.1); Potassium 3.2 mmol/L (3.5-5.1)
[2022-01-23] MEDS ORDERED: POTASSIUM CHL 20 Meq TABLET PO ONE (22:15)
[2022-01-23] MEDS ORDERED: POTASSIUM EFFERVESENT TAB 25 MEQ GT ONE (22:30)
[2022-01-24] VITALS (102 sets, daily range): BP systolic 136–180; BP diastolic 46–66
[2022-01-24] MEDS: ACCU-CHEK COMFORT CURVE STRIP VI SCH ×11 (00:05→23:52)
[2022-01-24] MEDS: InsuLIN R (HUMAN) 100 UNITS in SODIUM CHL 0.9% 99 ML IV SCH (00:11)
[2022-01-24] MEDS ORDERED: InsuLIN R (HUMAN) 100 UNITS in SODIUM CHL 0.9% 99 ML IV SCH (01:30)
[2022-01-24] MEDS: PROPOFOL 100 ML IV SCH (01:43)
[2022-01-24 03:49] LABS: Basophils # (auto) 0 10 ^3/uL (0-0.2); Eosinophils # (auto) 0 10 ^3/uL (0-0.8); Lymphocytes # (auto) 0.9 10 ^3/uL (0.4-5.4); Monocytes # (auto) 0.3 10 ^3/uL (0-1.3)
[2022-01-24 03:50] LABS: Basophils % (auto) 0.2 % (0.0-2.0); Eosinophils % (auto) 0.3 % (0.0-7.0); Hematocrit 21.2 % (36.0-46.0); Hemoglobin 7.4 g/dL (12.2-16.2); Mean Corpuscular Hemoglobin 33.2 pg (28.0-32.0); Mean Corpuscular Hgb Conc. 35.1 g/dL (32.0-36.0); Mean Corpuscular Volume 94.6 fL (80.0-100.0); Monocytes % (auto) 9.2 % (0.0-12.0); Neutrophils # (auto) 2.1 10 ^3/uL (1.6-8.6); Neutrophils % (auto) 62.3 % (37.0-80.0); Nucleated Red Blood Cells % 0.1 %; Red Blood Cells 2.24 10^6/uL (4.0-5.20); White Blood Cell 3.3 10^3/uL (4.4-10.8)
[2022-01-24 04:05] LABS: BUN/Creatinine Ratio 18.4; Calcium 7.5 mg/dL (8.5-10.1); Potassium 3.8 mmol/L (3.5-5.1)
[2022-01-24 05:57] LABS: Red Cell Distribution Width 22.8 % (11.8-14.3)
[2022-01-24] MEDS: D5W/SOD CHL 0.45% 1,000 ML IV SCH (06:09)
[2022-01-24] MEDS: CIPROFLOXACIN 400MG/200ML 200 ML IV SCH ×2 (09:53→21:00)
[2022-01-24] MEDS: INSULIN LANTUS (GLARGINE) 1 /0.01ml (100units/ml) SC SCH (10:22)
[2022-01-24] MEDS: hydrALAZINE HCL 20 MG/ML VL IV PRN ×3 (10:26→20:51)
[2022-01-24] MEDS ORDERED: DEXTROSE (50%) 50ML SYRG IV PRN (11:15)
[2022-01-24] MEDS: SODIUM CHLORIDE 0.9% 1,000 ML IV SCH ×2 (11:27→20:48)
[2022-01-24] MEDS: InsuLIN REG 1unit/0.01ml Soln (100units/ml) SC SCH ×2 (12:17→17:46)
[2022-01-24] MEDS: NOREPINEPHRINE 8 MG/250ML KIT 250 ML IV SCH (17:00)
[2022-01-24] MEDS: fentaNYL Drip 2500mCg/250mlNS 250 ML IV SCH (17:00)
[2022-01-24 19:40] LABS: White Blood Cell 2.5 10^3/uL (4.4-10.8)
[2022-01-24 19:41] LABS: Basophils # (auto) 0 10 ^3/uL (0-0.2); Basophils % (auto) 0.2 % (0.0-2.0); Eosinophils # (auto) 0 10 ^3/uL (0-0.8); Eosinophils % (auto) 0.3 % (0.0-7.0); Hematocrit 22.3 % (36.0-46.0); Hemoglobin 7.8 g/dL (12.2-16.2); Lymphocytes # (auto) 0.6 10 ^3/uL (0.4-5.4); Lymphocytes % (auto) 23.9 % (10.0-50.0); Mean Corpuscular Hemoglobin 32.9 pg (28.0-32.0); Mean Corpuscular Hgb Conc. 34.8 g/dL (32.0-36.0); Mean Corpuscular Volume 94.6 fL (80.0-100.0); Monocytes # (auto) 0.3 10 ^3/uL (0-1.3); Monocytes % (auto) 10.4 % (0.0-12.0); Neutrophils # (auto) 1.7 10 ^3/uL (1.6-8.6); Neutrophils % (auto) 65.2 % (37.0-80.0); Nucleated Red Blood Cells % 0.2 %; Red Blood Cells 2.36 10^6/uL (4.0-5.20)
[2022-01-24 19:47] LABS: Red Cell Distribution Width 23.2 % (11.8-14.3)
[2022-01-24 19:55] LABS: Albumin 1.8 g/dL (3.4-5.0); Calcium 7.3 mg/dL (8.5-10.1); Potassium 3.5 mmol/L (3.5-5.1)
[2022-01-24 20:03] LABS: BUN/Creatinine Ratio 16.4; Bilirubin, Total 0.3 mg/dL (0.2-1.0); CRP High Sensitivity 8.41 mg/dL (< 0.3); Pre Albumin 7.9 mg/dL (20.0-40.0); Total Protein 5.1 g/dL (6.4-8.2)
[2022-01-24 20:05] LABS: Thyroid Stimulating Hormone 1.01 uIU/mL (0.358-3.74)
[2022-01-24 20:41] LABS: % Iron Saturation 18.7 % (15-50)
[2022-01-24 21:34] LABS: Ferritin 640.3 ng/mL (10-322); Free T4 (Free Thyroxine) 1.09 ng/dL (0.89-1.76)
[2022-01-25] VITALS (78 sets, daily range): BP systolic 125–174; BP diastolic 36–68
[2022-01-25] MEDS: MORPHINE SULFATE INJ 2 MG/ml SYRG IV PRN (00:35)
[2022-01-25] MEDS: hydrALAZINE HCL 20 MG/ML VL IV PRN ×3 (01:45→12:58)
[2022-01-25] MEDS: ACCU-CHEK COMFORT CURVE STRIP VI SCH ×3 (05:14→20:08)
[2022-01-25] MEDS: InsuLIN REG 1unit/0.01ml Soln (100units/ml) SC SCH ×4 (05:22→20:11)
[2022-01-25] MEDS: SODIUM CHLORIDE 0.9% 1,000 ML IV SCH (09:12)
[2022-01-25] MEDS: CIPROFLOXACIN 400MG/200ML 200 ML IV SCH (09:29)
[2022-01-25] MEDS: INSULIN LANTUS (GLARGINE) 1 /0.01ml (100units/ml) SC SCH (10:00)
[2022-01-25] MEDS ORDERED: SODIUM CHLORIDE 0.9% 1,000 ML IV SCH (11:30)
[2022-01-25] MEDS: PROPOFOL 100 ML IV SCH (12:36)
[2022-01-25 13:02] LABS: Basophils # (auto) 0 10 ^3/uL (0-0.2); Eosinophils # (auto) 0 10 ^3/uL (0-0.8); Lymphocytes # (auto) 0.4 10 ^3/uL (0.4-5.4)
[2022-01-25 13:04] LABS: Basophils % (auto) 1.7 % (0.0-2.0); Eosinophils % (auto) 0.3 % (0.0-7.0); Hematocrit 23.1 % (36.0-46.0); Hemoglobin 7.9 g/dL (12.2-16.2); Lymphocytes % (auto) 20.9 % (10.0-50.0); Mean Corpuscular Hemoglobin 33.2 pg (28.0-32.0); Mean Corpuscular Hgb Conc. 34.1 g/dL (32.0-36.0); Mean Corpuscular Volume 97.3 fL (80.0-100.0); Monocytes # (auto) 0.4 10 ^3/uL (0-1.3); Monocytes % (auto) 17.3 % (0.0-12.0); Neutrophils # (auto) 1.3 10 ^3/uL (1.6-8.6); Neutrophils % (auto) 59.8 % (37.0-80.0); Nucleated Red Blood Cells % 0.5 %; Red Blood Cells 2.38 10^6/uL (4.0-5.20); Red Cell Distribution Width 23.4 % (11.8-14.3); White Blood Cell 2.1 10^3/uL (4.4-10.8)
[2022-01-25 13:25] LABS: BUN/Creatinine Ratio 16.2; Calcium 7.6 mg/dL (8.5-10.1); Magnesium 1.7 mg/dL (1.6-2.6); Potassium 3.7 mmol/L (3.5-5.1)
[2022-01-25] MEDS ORDERED: MAGNESIUM SULFATE 1GM/100ML 200 ML IV ONE (13:58)
[2022-01-25] MEDS: SOD CHL 0.45% 1,000 ML IV SCH (14:00)
[2022-01-25] MEDS: MAGNESIUM SULFATE 1GM/100ML 100 ML IV SCH ×2 (14:19→15:05)
[2022-01-25] MEDS: NOREPINEPHRINE 8 MG/250ML KIT 250 ML IV SCH (15:54)
[2022-01-25] MEDS: POTASSIUM CHL 20MEQ/100ML 100 ML IV SCH ×2 (15:54→18:00)
[2022-01-25] MEDS: fentaNYL Drip 2500mCg/250mlNS 250 ML IV SCH (15:54)
[2022-01-26] VITALS (94 sets, daily range): BP systolic 117–177; BP diastolic 39–65
[2022-01-26] MEDS: ACCU-CHEK COMFORT CURVE STRIP VI SCH ×5 (01:43→23:31)
[2022-01-26] MEDS: InsuLIN REG 1unit/0.01ml Soln (100units/ml) SC SCH ×5 (01:44→23:31)
[2022-01-26] MEDS: CIPROFLOXACIN 400MG/200ML 200 ML IV SCH (01:45)
[2022-01-26] MEDS: hydrALAZINE HCL 20 MG/ML VL IV PRN ×2 (02:04→10:45)
[2022-01-26] MEDS: SOD CHL 0.45% 1,000 ML IV SCH ×2 (03:41→16:25)
[2022-01-26 08:19] LABS: Hematocrit 23.4 % (36.0-46.0)
[2022-01-26 08:21] LABS: Mean Corpuscular Hemoglobin 33.4 pg (28.0-32.0); Mean Corpuscular Hgb Conc. 34.2 g/dL (32.0-36.0); Mean Corpuscular Volume 97.5 fL (80.0-100.0)
[2022-01-26 08:23] LABS: INR 1.04 (0.9-1.15); Partial Thromboplastin Time 24.1 sec (23.6-33.0); Red Cell Distribution Width 23.7 % (11.8-14.3)
[2022-01-26 08:25] LABS: Albumin 1.8 g/dL (3.4-5.0); Basophils % (manual) 0 (0.0-2.0); Blast Cells 0; Calcium 7.9 mg/dL (8.5-10.1); Eosinophils % (manual) 0 (0-7); Myelocytes % 0; Potassium 4.5 mmol/L (3.5-5.1); Promyelocytes % 0; Reactive Lymphocytes 0; White Blood Cell 1.8 10^3/uL (4.4-10.8)
[2022-01-26 08:27] LABS: BUN/Creatinine Ratio 14.4
[2022-01-26 08:29] LABS: Bilirubin, Total 0.4 mg/dL (0.2-1.0)
[2022-01-26 08:33] LABS: Folate (Folic Acid) > 24.00 ng/mL (5.38-24)
[2022-01-26] MEDS ORDERED: CEFTRIAXONE SODIUM 2 GM in D5W 5% 50 ML IV ONE (10:15)
[2022-01-26 10:21] LABS: Band Neutrophils % (manual) 2; Lymphocytes % (manual) 24 (10.0-50.0); Metamyelocytes % 1; Monocytes % (manual) 23 (0-12)
[2022-01-26] MEDS: INSULIN LANTUS (GLARGINE) 1 /0.01ml (100units/ml) SC SCH (10:37)
[2022-01-26] MEDS: NYSTATIN (MOUTH-THROAT) 500,000 UNITS/5 ML SUSP MT SCH ×3 (12:09→21:28)
[2022-01-26] MEDS ORDERED: IOHEXOL 350 MG/ML 100ML IJ ONE (13:09)
[2022-01-26] MEDS ORDERED: PANTOPRAZOLE 40 MG/10 ML VIAL INJ IV ONE (13:45)
[2022-01-26] MEDS: PROPOFOL 100 ML IV SCH (13:45)
[2022-01-26] MEDS: NOREPINEPHRINE 8 MG/250ML KIT 250 ML IV SCH (17:00)
[2022-01-26] MEDS: fentaNYL Drip 2500mCg/250mlNS 250 ML IV SCH (18:10)
[2022-01-27] VITALS (64 sets, daily range): BP systolic 130–181; BP diastolic 42–71
[2022-01-27 04:02] LABS: White Blood Cell 2.3 10^3/uL (4.4-10.8)
[2022-01-27 04:08] LABS: Hematocrit 20.2 % (36.0-46.0); Mean Corpuscular Hemoglobin 33.5 pg (28.0-32.0); Mean Corpuscular Volume 98.4 fL (80.0-100.0); Red Blood Cells 2.06 10^6/uL (4.0-5.20)
[2022-01-27 04:20] LABS: Calcium 6.9 mg/dL (8.5-10.1); Potassium 3.7 mmol/L (3.5-5.1)
[2022-01-27 04:24] LABS: BUN/Creatinine Ratio 13.5
[2022-01-27 04:54] LABS: Basophils % (manual) 0 (0.0-2.0); Blast Cells 0; Eosinophils % (manual) 0 (0-7); Hemoglobin 6.9 g/dL (12.2-16.2); Promyelocytes % 0; Reactive Lymphocytes 0; Red Cell Distribution Width 23.8 % (11.8-14.3)
[2022-01-27 05:18] LABS: Lymphocytes % (manual) 29 (10.0-50.0)
[2022-01-27 05:31] LABS: Band Neutrophils % (manual) 5; Metamyelocytes % 1; Monocytes % (manual) 29 (0-12); Myelocytes % 4
[2022-01-27] MEDS: ACCU-CHEK COMFORT CURVE STRIP VI SCH ×3 (06:04→18:02)
[2022-01-27] MEDS: InsuLIN REG 1unit/0.01ml Soln (100units/ml) SC SCH ×3 (06:05→18:00)
[2022-01-27] MEDS: NYSTATIN (MOUTH-THROAT) 500,000 UNITS/5 ML SUSP MT SCH ×4 (06:22→21:59)
[2022-01-27 06:45] LABS: Basophils # (auto) 0 10 ^3/uL (0-0.2); Basophils % (auto) 0.3 % (0.0-2.0); Eosinophils # (auto) 0 10 ^3/uL (0-0.8); Eosinophils % (auto) 0.4 % (0.0-7.0); Hematocrit 22.7 % (36.0-46.0); Hemoglobin 7.7 g/dL (12.2-16.2); Lymphocytes # (auto) 0.6 10 ^3/uL (0.4-5.4); Lymphocytes % (auto) 25.6 % (10.0-50.0); Mean Corpuscular Hemoglobin 33.4 pg (28.0-32.0); Mean Corpuscular Hgb Conc. 33.9 g/dL (32.0-36.0); Mean Corpuscular Volume 98.4 fL (80.0-100.0); Monocytes # (auto) 1.2 10 ^3/uL (0-1.3); Neutrophils # (auto) 0.6 10 ^3/uL (1.6-8.6); Neutrophils % (auto) 24.2 % (37.0-80.0); Nucleated Red Blood Cells % 0.4 %; Red Blood Cells 2.31 10^6/uL (4.0-5.20); White Blood Cell 2.5 10^3/uL (4.4-10.8)
[2022-01-27 06:47] LABS: Monocytes % (auto) 49.5 % (0.0-12.0)
[2022-01-27] MEDS: CEFTRIAXONE SODIUM 2 GM in D5W 5% 50 ML IV SCH (10:12)
[2022-01-27] MEDS: PANTOPRAZOLE 40 MG/10 ML VIAL INJ IV SCH (10:12)
[2022-01-27] MEDS: INSULIN LANTUS (GLARGINE) 1 /0.01ml (100units/ml) SC SCH (10:33)
[2022-01-27] MEDS: hydrALAZINE HCL 20 MG/ML VL IV PRN (13:38)
[2022-01-27] MEDS: PROPOFOL 100 ML IV SCH (13:45)
[2022-01-27] MEDS ORDERED: metroNIDAZOLE 500MG/100ML 100 ML IV ONE (15:15)
[2022-01-27] MEDS: fentaNYL Drip 2500mCg/250mlNS 250 ML IV SCH (17:00)
[2022-01-27] MEDS: NOREPINEPHRINE 8 MG/250ML KIT 250 ML IV SCH (17:00)
[2022-01-27] MEDS: metroNIDAZOLE 500MG/100ML 100 ML IV SCH (21:59)
[2022-01-28] VITALS (23 sets, daily range): BP systolic 127–162; BP diastolic 50–66
[2022-01-28] MEDS: ACCU-CHEK COMFORT CURVE STRIP VI SCH ×4 (00:04→18:04)
[2022-01-28] MEDS: metroNIDAZOLE 500MG/100ML 100 ML IV SCH ×3 (05:15→22:52)
[2022-01-28] MEDS: NYSTATIN (MOUTH-THROAT) 500,000 UNITS/5 ML SUSP MT SCH ×4 (05:15→22:51)
[2022-01-28] MEDS: InsuLIN REG 1unit/0.01ml Soln (100units/ml) SC SCH ×4 (05:31→18:00)
[2022-01-28] MEDS: CEFTRIAXONE SODIUM 2 GM in D5W 5% 50 ML IV SCH (09:46)
[2022-01-28] MEDS: PANTOPRAZOLE 40 MG/10 ML VIAL INJ IV SCH (09:46)
[2022-01-28] MEDS: amLODIPine BESYLATE 5 MG TAB PO SCH (09:48)
[2022-01-28] MEDS: INSULIN LANTUS (GLARGINE) 1 /0.01ml (100units/ml) SC SCH (10:00)
[2022-01-28] MEDS: PROPOFOL 100 ML IV SCH (13:45)
[2022-01-28 16:32] LABS: Hematocrit 23.2 % (36.0-46.0); Magnesium 2.1 mg/dL (1.6-2.6); Mean Corpuscular Volume 96.6 fL (80.0-100.0); Potassium 3.5 mmol/L (3.5-5.1); White Blood Cell 4.1 10^3/uL (4.4-10.8)
[2022-01-28 16:33] LABS: Mean Corpuscular Hemoglobin 33.4 pg (28.0-32.0); Mean Corpuscular Hgb Conc. 34.5 g/dL (32.0-36.0); Red Cell Distribution Width 23.4 % (11.8-14.3)
[2022-01-28 16:34] LABS: BUN/Creatinine Ratio 9.7; Basophils % (manual) 0 (0.0-2.0); Blast Cells 0; Eosinophils % (manual) 0 (0-7); Phosphorus 2.8 mg/dL (2.5-4.90); Promyelocytes % 0
[2022-01-28] MEDS: NOREPINEPHRINE 8 MG/250ML KIT 250 ML IV SCH (17:00)
[2022-01-28] MEDS: fentaNYL Drip 2500mCg/250mlNS 250 ML IV SCH (17:00)
[2022-01-28 19:25] LABS: Band Neutrophils % (manual) 10; Lymphocytes % (manual) 30 (10.0-50.0); Metamyelocytes % 3; Monocytes % (manual) 24 (0-12); Myelocytes % 1; Reactive Lymphocytes 2
[2022-01-29] MEDS: ACCU-CHEK COMFORT CURVE STRIP VI SCH ×4 (00:19→17:29)
[2022-01-29] MEDS: InsuLIN REG 1unit/0.01ml Soln (100units/ml) SC SCH ×5 (00:19→21:49)
[2022-01-29 05:00] VITALS: BP 139/52
[2022-01-29] MEDS: NYSTATIN (MOUTH-THROAT) 500,000 UNITS/5 ML SUSP MT SCH ×4 (06:00→21:48)
[2022-01-29] MEDS: metroNIDAZOLE 500MG/100ML 100 ML IV SCH ×3 (06:22→21:48)
[2022-01-29 08:00] VITALS: BP 161/56
[2022-01-29] MEDS: PANTOPRAZOLE 40 MG/10 ML VIAL INJ IV SCH (10:21)
[2022-01-29] MEDS: amLODIPine BESYLATE 5 MG TAB PO SCH (10:22)
[2022-01-29] MEDS: INSULIN LANTUS (GLARGINE) 1 /0.01ml (100units/ml) SC SCH ×2 (11:20→21:50)
[2022-01-29 12:00] VITALS: BP 155/63
[2022-01-29] MEDS: CEFTRIAXONE SODIUM 2 GM in D5W 5% 50 ML IV SCH (12:43)
[2022-01-29 16:00] VITALS: BP 149/63
[2022-01-29 23:00] VITALS: BP 173/75
[2022-01-30] MEDS: ACCU-CHEK COMFORT CURVE STRIP VI SCH ×4 (00:26→17:42)
[2022-01-30] MEDS: MORPHINE SULFATE INJ 2 MG/ml SYRG IV PRN (00:54)
[2022-01-30] MEDS: ONDANSETRON HCL 4 MG/2 ML VIAL IV PRN (03:19)
[2022-01-30 05:03] VITALS: BP 133/59
[2022-01-30 05:43] LABS: Hematocrit 25.3 % (36.0-46.0); Hemoglobin 8.8 g/dL (12.2-16.2); Mean Corpuscular Hemoglobin 33.2 pg (28.0-32.0); Mean Corpuscular Hgb Conc. 34.7 g/dL (32.0-36.0); Mean Corpuscular Volume 95.6 fL (80.0-100.0); Red Blood Cells 2.65 10^6/uL (4.0-5.20); White Blood Cell 13.1 10^3/uL (4.4-10.8)
[2022-01-30 06:00] LABS: Albumin 1.7 g/dL (3.4-5.0); Calcium 7.5 mg/dL (8.5-10.1)
[2022-01-30] MEDS: InsuLIN REG 1unit/0.01ml Soln (100units/ml) SC SCH ×4 (06:00→21:20)
[2022-01-30 06:01] LABS: Red Cell Distribution Width 23.4 % (11.8-14.3)
[2022-01-30 06:03] LABS: Basophils % (manual) 0 (0.0-2.0); Blast Cells 0; Eosinophils % (manual) 0 (0-7); Promyelocytes % 0; Reactive Lymphocytes 0
[2022-01-30] MEDS: NYSTATIN (MOUTH-THROAT) 500,000 UNITS/5 ML SUSP MT SCH ×4 (06:03→21:30)
[2022-01-30] MEDS: metroNIDAZOLE 500MG/100ML 100 ML IV SCH ×3 (06:03→21:30)
[2022-01-30 06:04] LABS: BUN/Creatinine Ratio 10.1; Bilirubin, Total 0.3 mg/dL (0.2-1.0); Phosphorus 1.8 mg/dL (2.5-4.90)
[2022-01-30 08:13] LABS: Band Neutrophils % (manual) 15; Lymphocytes % (manual) 17 (10.0-50.0); Metamyelocytes % 1; Monocytes % (manual) 19 (0-12); Myelocytes % 6
[2022-01-30 09:00] VITALS: BP 143/60
[2022-01-30] MEDS: INSULIN LANTUS (GLARGINE) 1 /0.01ml (100units/ml) SC SCH (10:00)
[2022-01-30] MEDS: CEFTRIAXONE SODIUM 2 GM in D5W 5% 50 ML IV SCH (10:29)
[2022-01-30] MEDS: amLODIPine BESYLATE 5 MG TAB PO SCH (10:30)
[2022-01-30] MEDS: PANTOPRAZOLE 40 MG/10 ML VIAL INJ IV SCH (10:31)
[2022-01-30] MEDS: Glucerna Carbsteady SHAKE Chocolate 8oz PO SCH ×3 (12:45→18:53)
[2022-01-30 13:00] VITALS: BP 146/59
[2022-01-30 17:00] VITALS: BP 131/73
[2022-01-30 22:00] VITALS: BP 164/64
[2022-01-31] MEDS: MORPHINE SULFATE INJ 2 MG/ml SYRG IV PRN (02:21)
[2022-01-31] MEDS: hydrALAZINE HCL 20 MG/ML VL IV PRN (04:14)
[2022-01-31 05:00] VITALS: BP 173/64
[2022-01-31] MEDS: NYSTATIN (MOUTH-THROAT) 500,000 UNITS/5 ML SUSP MT SCH ×4 (05:23→23:30)
[2022-01-31] MEDS: metroNIDAZOLE 500MG/100ML 100 ML IV SCH ×3 (05:23→23:30)
[2022-01-31] MEDS: InsuLIN REG 1unit/0.01ml Soln (100units/ml) SC SCH ×4 (05:23→23:38)
[2022-01-31] MEDS: ACCU-CHEK COMFORT CURVE STRIP VI SCH ×4 (05:24→18:43)
[2022-01-31] MEDS: SUCRALFATE 1 GM/10 ML ORAL SUSP GT SCH ×2 (05:25→18:43)
[2022-01-31 08:00] VITALS: BP 152/61
[2022-01-31] MEDS: ONDANSETRON HCL 4 MG/2 ML VIAL IV PRN (10:15)
[2022-01-31] MEDS: PANTOPRAZOLE 40 MG/10 ML VIAL INJ IV SCH (10:18)
[2022-01-31] MEDS: CEFTRIAXONE SODIUM 2 GM in D5W 5% 50 ML IV SCH (10:20)
[2022-01-31] MEDS: amLODIPine BESYLATE 5 MG TAB PO SCH (10:26)
[2022-01-31] MEDS: Glucerna Carbsteady SHAKE Chocolate 8oz PO SCH ×3 (10:35→18:43)
[2022-01-31 12:00] VITALS: BP 133/64
[2022-01-31] MEDS: INSULIN LANTUS (GLARGINE) 1 /0.01ml (100units/ml) SC SCH (12:24)
[2022-01-31 16:00] VITALS: BP 130/55
[2022-01-31 22:00] VITALS: BP 122/62
[2022-02-01 05:00] VITALS: BP 130/57
[2022-02-01] MEDS: InsuLIN REG 1unit/0.01ml Soln (100units/ml) SC SCH ×4 (06:00→23:59)
[2022-02-01] MEDS: ACCU-CHEK COMFORT CURVE STRIP VI SCH ×5 (06:00→23:58)
[2022-02-01] MEDS: metroNIDAZOLE 500MG/100ML 100 ML IV SCH ×3 (06:36→21:40)
[2022-02-01] MEDS: NYSTATIN (MOUTH-THROAT) 500,000 UNITS/5 ML SUSP MT SCH ×4 (06:36→21:42)
[2022-02-01] MEDS: SUCRALFATE 1 GM/10 ML ORAL SUSP GT SCH ×2 (06:40→17:54)
[2022-02-01 08:00] VITALS: BP 132/58
[2022-02-01] MEDS: CEFTRIAXONE SODIUM 2 GM in D5W 5% 50 ML IV SCH (09:11)
[2022-02-01] MEDS: ONDANSETRON HCL 4 MG/2 ML VIAL IV PRN (09:11)
[2022-02-01] MEDS: PANTOPRAZOLE 40 MG/10 ML VIAL INJ IV SCH (09:11)
[2022-02-01] MEDS: amLODIPine BESYLATE 5 MG TAB PO SCH (09:12)
[2022-02-01] MEDS: MORPHINE SULFATE INJ 2 MG/ml SYRG IV PRN ×2 (09:13→21:45)
[2022-02-01] MEDS: Glucerna Carbsteady SHAKE Chocolate 8oz PO SCH ×3 (09:43→17:53)
[2022-02-01] MEDS: INSULIN LANTUS (GLARGINE) 1 /0.01ml (100units/ml) SC SCH (10:00)
[2022-02-01 10:26] LABS: Hematocrit 25.4 % (36.0-46.0); Hemoglobin 8.7 g/dL (12.2-16.2); Mean Corpuscular Hemoglobin 33.9 pg (28.0-32.0); Mean Corpuscular Hgb Conc. 34.2 g/dL (32.0-36.0); Red Blood Cells 2.57 10^6/uL (4.0-5.20); White Blood Cell 14.2 10^3/uL (4.4-10.8)
[2022-02-01 10:45] LABS: Albumin 1.6 g/dL (3.4-5.0); Calcium 7.4 mg/dL (8.5-10.1); Magnesium 1.9 mg/dL (1.6-2.6); Potassium 3.3 mmol/L (3.5-5.1)
[2022-02-01 10:49] LABS: BUN/Creatinine Ratio 9.6; Bilirubin, Total 0.2 mg/dL (0.2-1.0); Phosphorus 2.1 mg/dL (2.5-4.90); Total Protein 4.6 g/dL (6.4-8.2)
[2022-02-01 11:00] LABS: Red Cell Distribution Width 24.7 % (11.8-14.3)
[2022-02-01 11:01] LABS: Basophils % (manual) 0 (0.0-2.0); Blast Cells 0; Eosinophils % (manual) 0 (0-7); Promyelocytes % 0; Reactive Lymphocytes 0
[2022-02-01 11:26] LABS: Band Neutrophils % (manual) 11; Lymphocytes % (manual) 19 (10.0-50.0); Metamyelocytes % 6; Monocytes % (manual) 9 (0-12); Myelocytes % 5
[2022-02-01 12:00] VITALS: BP 136/61
[2022-02-01 16:00] VITALS: BP 127/58
[2022-02-01 22:23] VITALS: BP 138/59
[2022-02-02] MEDS: MORPHINE SULFATE INJ 2 MG/ml SYRG IV PRN ×2 (03:36→15:54)
[2022-02-02 05:00] VITALS: BP 132/43
[2022-02-02] MEDS: ACCU-CHEK COMFORT CURVE STRIP VI SCH ×2 (05:42→12:33)
[2022-02-02] MEDS: InsuLIN REG 1unit/0.01ml Soln (100units/ml) SC SCH ×2 (05:44→12:34)
[2022-02-02] MEDS: metroNIDAZOLE 500MG/100ML 100 ML IV SCH ×2 (05:46→14:41)
[2022-02-02] MEDS: NYSTATIN (MOUTH-THROAT) 500,000 UNITS/5 ML SUSP MT SCH ×2 (05:46→12:33)
[2022-02-02 06:00] VITALS: BP 125/60
[2022-02-02] MEDS: SUCRALFATE 1 GM/10 ML ORAL SUSP GT SCH (06:49)
[2022-02-02 08:00] VITALS: BP 125/60
[2022-02-02] MEDS: Glucerna Carbsteady SHAKE Chocolate 8oz PO SCH ×2 (09:30→12:23)
[2022-02-02] MEDS: PANTOPRAZOLE 40 MG/10 ML VIAL INJ IV SCH (09:30)
[2022-02-02] MEDS: amLODIPine BESYLATE 5 MG TAB PO SCH (09:31)
[2022-02-02] MEDS: CEFTRIAXONE SODIUM 2 GM in D5W 5% 50 ML IV SCH (09:31)
[2022-02-02] MEDS: INSULIN LANTUS (GLARGINE) 1 /0.01ml (100units/ml) SC SCH (09:44)
[2022-02-02 15:54] VITALS: BP 110/60
== END 2022-02-02 16:20 | DRG 870 ==
LOC: EDBD 12:57 → ER 12:57 → TELE 16:50 → ICU WEST 20:10 → TELE-EAST 01-28 21:19
PROVIDERS: ADMIT Nurse Practitioner; ATTEND Nurse Practitioner
PROC: 5A1955Z Respiratory Ventilation, Greater than 96 Consecutive Hours (ICD-10-PCS; principal; 2022-01-22)
PROC: 0BH17EZ Insertion of Endotracheal Airway into Trachea, Via Natural or Artificial Opening (ICD-10-PCS; 2022-01-22)
PROC: 05H933Z Insertion of Infusion Device into Right Brachial Vein, Percutaneous Approach (ICD-10-PCS; 2022-01-22)
PROC: B54MZZA Ultrasonography of Right Upper Extremity Veins, Guidance (ICD-10-PCS; 2022-01-22)
PROC: 05HB33Z Insertion of Infusion Device into Right Basilic Vein, Percutaneous Approach (ICD-10-PCS; 2022-01-22)
PROC: B54MZZA Ultrasonography of Right Upper Extremity Veins, Guidance (ICD-10-PCS; 2022-01-22)
PROC: 05HA33Z Insertion of Infusion Device into Left Brachial Vein, Percutaneous Approach (ICD-10-PCS; 2022-01-26)
PROC: B54NZZA Ultrasonography of Left Upper Extremity Veins, Guidance (ICD-10-PCS; 2022-01-26)
DX: A41.50 Gram-negative sepsis, unspecified (principal); G93.41 Metabolic encephalopathy; E11.10 Type 2 diabetes mellitus with ketoacidosis without coma; J96.01 Acute respiratory failure with hypoxia; R65.21 Severe sepsis with septic shock; K85.90 Acute pancreatitis without necrosis or infection, unspecified; C18.9 Malignant neoplasm of colon, unspecified; E87.1 Hypo-osmolality and hyponatremia; N17.9 Acute kidney failure, unspecified; N39.0 Urinary tract infection, site not specified; J98.11 Atelectasis; D84.9 Immunodeficiency, unspecified; I10 Essential (primary) hypertension; K74.60 Unspecified cirrhosis of liver; Z20.822 Contact with and (suspected) exposure to COVID-19; D69.6 Thrombocytopenia, unspecified; E87.5 Hyperkalemia; B96.1 Klebsiella pneumoniae [K. pneumoniae] as the cause of diseases classified elsewhere; D63.8 Anemia in other chronic diseases classified elsewhere; Z88.5 Allergy status to narcotic agent; Z88.8 Allergy status to other drugs, medicaments and biological substances
CPT/HCPCS: 31500; 36415; 36600; 70450; 71045; 71260; 74177; 78226; 80048; 80053; 80307; 81001; 82010; 82040; 82270; 82607; 82728; 82746; 82805; 82947; 82962; 83010; 83540; 83550; 83605; 83615; 83735; 83880; 83930; 84100; 84439; 84443; 84484; 85007; 85025; 85027; 85379; 85610; 85652; 85730; 86141; 86850; 86880; 86885; 86900; 86901; 87040; 87070; 87077; 87081; 87186; 87205; 93005; 93306; 94002; 94003; 94640; 97110; 97116; 97163; 97530; 99291; A4618; C9113; G0378; J0330; J0696; J1815; J2250; J2405; J2704; J3480; J3490; J7060

== ENCOUNTER 2022-02-10 19:53 | Inpatient (IN) | payer MEDICARE, MEDICAID ==
[~2022-02-10] VITALS: Ht 154.9 cm; Wt 47.9 kg
[2022-02-10] MEDS: SODIUM CHLORIDE 0.9% 1,000 ML IV SCH
[2022-02-10] MEDS: PIPERACILLIN-TAZOB 3.375GM 100 ML IV SCH (01:00)
[2022-02-10] MEDS ORDERED: SODIUM CHLORIDE 0.9% 1,000 ML IV ONE ×2 (20:45→22:00)
[2022-02-10 21:24] LABS: Hematocrit 40.3 % (36.0-46.0); Hemoglobin 10.5 g/dL (12.2-16.2); Mean Corpuscular Hgb Conc. 26.1 g/dL (32.0-36.0); Mean Corpuscular Volume 122.7 fL (80.0-100.0); Red Blood Cells 3.28 10^6/uL (4.0-5.20)
[2022-02-10 21:25] LABS: Red Cell Distribution Width 21.7 % (11.8-14.3)
[2022-02-10 21:27] LABS: White Blood Cell 31.1 10^3/uL (4.4-10.8)
[2022-02-10 21:29] LABS: Basophils % (manual) 0 (0.0-2.0); Blast Cells 0; Myelocytes % 0; Promyelocytes % 0; Reactive Lymphocytes 0
[2022-02-10] MEDS ORDERED: cefTRIAXone SOD 1,000 MG VL IV ONE (21:30)
[2022-02-10 21:31] LABS: Albumin 2.4 g/dL (3.4-5.0); Calcium 7.9 mg/dL (8.5-10.1); Magnesium 2.2 mg/dL (1.6-2.6)
[2022-02-10 21:33] LABS: Bilirubin, Total 0.7 mg/dL (0.2-1.0); Total Protein 5.7 g/dL (6.4-8.2)
[2022-02-10] MEDS ORDERED: cefTRIAXone 1GM/50ML D5W 50 ML IV ONE (22:00)
[2022-02-10] MEDS ORDERED: AZITHROMYCIN 500MG/ 250ML 250 ML IV ONE (22:00)
[2022-02-10 22:09] LABS: Urine Bacteria NONE SEEN /hpf (None Seen); Urine Blood Negative /uL (Negative); Urine Budding Yeast LOADED /hpf (None Seen); Urine Specific Gravity 1.017 (1.001-1.035); Urine WBC 86 /hpf (0 - 5); Urine WBC Clumps PRESENT /hpf (None Seen)
[2022-02-10] MEDS ORDERED: InsuLIN R (HUMAN) 100 UNITS in SODIUM CHL 0.9% 99 ML IV SCH ×2 (22:15→23:15)
[2022-02-10] MEDS ORDERED: DEXTROSE (50%) 50ML SYRG IV PRN ×2 (22:15→23:15)
[2022-02-10 22:21] LABS: Lactic Acid w/Reflex 8.5 mmol/L (0.4-2.0)
[2022-02-10 22:28] LABS: Band Neutrophils % (manual) 9; Eosinophils % (manual) 1 (0-7); Lymphocytes % (manual) 8 (10.0-50.0); Metamyelocytes % 2; Monocytes % (manual) 8 (0-12)
[2022-02-10] MEDS ORDERED: InsuLIN REG 1unit/0.01ml Soln (100units/ml) ONE (22:29)
[2022-02-10] MEDS: ACCU-CHEK COMFORT CURVE STRIP VI SCH (22:42)
[2022-02-10 23:03] LABS: Calcium 8.2 mg/dL (8.5-10.1); Potassium 4.4 mmol/L (3.5-5.1)
[2022-02-10] MEDS ORDERED: NITROGLYCERIN 0.4 MG SL TAB SL PRN (23:15)
[2022-02-10] MEDS ORDERED: DOCUSATE SOD 100 MG CAP PO PRN (23:15)
[2022-02-10] MEDS ORDERED: MORPHINE SULFATE INJ 2 MG/ml SYRG IV PRN (23:15)
[2022-02-10] MEDS ORDERED: INSULIN LANTUS (GLARGINE) 1 /0.01ml (100units/ml) SC ONE (23:15)
[2022-02-10 23:16] LABS: BUN/Creatinine Ratio 17.3
[2022-02-10] MEDS ORDERED: NOREPINEPHRINE 8 MG/250ML KIT 250 ML IV PRN (23:45)
[2022-02-11] MEDS: ACCU-CHEK COMFORT CURVE STRIP VI SCH ×17 (00:30→22:31)
[2022-02-11] MEDS ORDERED: SODIUM CHLORIDE 0.9% 1,000 ML IV SCH ×5 (02:15→18:00)
[2022-02-11] MEDS: SODIUM CHLORIDE 0.9% 1,000 ML IV SCH ×2 (04:15→09:49)
[2022-02-11 04:17] LABS: Hemoglobin 8.2 g/dL (12.2-16.2)
[2022-02-11 04:21] LABS: Hematocrit 26.6 % (36.0-46.0); Mean Corpuscular Hemoglobin 33.1 pg (28.0-32.0); Mean Corpuscular Hgb Conc. 30.8 g/dL (32.0-36.0); Mean Corpuscular Volume 107.4 fL (80.0-100.0); Red Blood Cells 2.48 10^6/uL (4.0-5.20); White Blood Cell 22.8 10^3/uL (4.4-10.8)
[2022-02-11] MEDS ORDERED: SODIUM BICARBONATE 8.4 % INJ 50ML VIAL IV ONE (04:30)
[2022-02-11 04:32] LABS: Red Cell Distribution Width 20.3 % (11.8-14.3)
[2022-02-11 04:34] LABS: Basophils % (manual) 0 (0.0-2.0); Blast Cells 0; Eosinophils % (manual) 0 (0-7); Metamyelocytes % 0; Promyelocytes % 0; Reactive Lymphocytes 0
[2022-02-11 04:36] LABS: Albumin 1.8 g/dL (3.4-5.0); Calcium 6.6 mg/dL (8.5-10.1)
[2022-02-11 04:45] LABS: BUN/Creatinine Ratio 18.3; Bilirubin, Total 0.4 mg/dL (0.2-1.0); Total Protein 4.7 g/dL (6.4-8.2)
[2022-02-11 04:58] LABS: Band Neutrophils % (manual) 8; Lymphocytes % (manual) 4 (10.0-50.0); Monocytes % (manual) 5 (0-12); Myelocytes % 1
[2022-02-11] MEDS ORDERED: InsuLIN R (HUMAN) 100 UNITS in SODIUM CHL 0.9% 99 ML IV SCH (05:00)
[2022-02-11] MEDS: PIPERACILLIN-TAZOB 3.375GM 100 ML IV SCH (06:37)
[2022-02-11 07:23] LABS: Albumin 1.8 g/dL (3.4-5.0); BUN/Creatinine Ratio 18.3; Calcium 6.9 mg/dL (8.5-10.1)
[2022-02-11 07:32] LABS: Bilirubin, Total 0.3 mg/dL (0.2-1.0); Total Protein 4.4 g/dL (6.4-8.2)
[2022-02-11] MEDS: POTASSIUM CHL 20MEQ/100ML 100 ML IV SCH ×5 (07:48→17:20)
[2022-02-11 08:17] LABS: Potassium 2.7 mmol/L (3.5-5.1)
[2022-02-11 10:03] LABS: Calcium 6.8 mg/dL (8.5-10.1)
[2022-02-11] MEDS: INSULIN LANTUS (GLARGINE) 1 /0.01ml (100units/ml) SC SCH (10:19)
[2022-02-11 10:57] LABS: Potassium 2.9 mmol/L (3.5-5.1)
[2022-02-11 12:08] LABS: Magnesium 1.8 mg/dL (1.6-2.6); Phosphorus 2.7 mg/dL (2.5-4.90)
[2022-02-11 12:44] LABS: BUN/Creatinine Ratio 17.4
[2022-02-11] MEDS: PIPERACILLIN-TAZOB 2.25GM 50 ML IV SCH ×2 (14:31→20:26)
[2022-02-11] MEDS: D5W/SOD CHL 0.45% 1,000 ML IV SCH ×2 (15:54→22:30)
[2022-02-11 16:20] LABS: BUN/Creatinine Ratio 18.5; Calcium 7.4 mg/dL (8.5-10.1); Potassium 3.6 mmol/L (3.5-5.1)
[2022-02-11 17:53] LABS: Anion Gap 9 (5-15); BUN/Creatinine Ratio 18.6; Blood Urea Nitrogen 24 mg/dL (7-18); Calcium 6.9 mg/dL (8.5-10.1); Carbon Dioxide 28 mmol/L (21-32); Chloride 106 mmol/L (98-107); GFR African American 53 mL/min; GFR Non-African American 44 mL/min; Glucose 96 mg/dL (74-106); Potassium 3.7 mmol/L (3.5-5.1); Sodium 143 mmol/L (136-145)
[2022-02-12 00:05] LABS: BUN/Creatinine Ratio 16.5; Calcium 7.2 mg/dL (8.5-10.1); Potassium 3.3 mmol/L (3.5-5.1)
[2022-02-12] MEDS: ACCU-CHEK COMFORT CURVE STRIP VI SCH ×10 (00:05→22:16)
[2022-02-12] MEDS: ONDANSETRON HCL 4 MG/2 ML VIAL IV PRN ×4 (01:49→23:56)
[2022-02-12] MEDS: HYDROcodone-ACET 5/325MG TAB PO PRN ×2 (01:50→17:25)
[2022-02-12] MEDS: PIPERACILLIN-TAZOB 2.25GM 50 ML IV SCH ×4 (01:53→20:56)
[2022-02-12] MEDS: D5W/SOD CHL 0.45% 1,000 ML IV SCH (05:10)
[2022-02-12] MEDS ORDERED: POTASSIUM CHL 20 Meq TABLET PO ONE ×4 (06:15→20:00)
[2022-02-12 07:14] LABS: Albumin 1.6 g/dL (3.4-5.0); Anion Gap 10 (5-15); Blood Urea Nitrogen 16 mg/dL (7-18); Calcium 6.9 mg/dL (8.5-10.1); Carbon Dioxide 25 mmol/L (21-32); Chloride 105 mmol/L (98-107); GFR African American 62 mL/min; GFR Non-African American 51 mL/min; Glucose 122 mg/dL (74-106); Magnesium 1.9 mg/dL (1.6-2.6); Potassium 3.4 mmol/L (3.5-5.1); Sodium 140 mmol/L (136-145)
[2022-02-12 07:17] LABS: Alanine Aminotransferase 12 U/L (13-56); Alkaline Phosphatase 103 U/L (45-117); Aspartate Aminotransferase 28 U/L (15-37); Bilirubin, Total 0.3 mg/dL (0.2-1.0); Phosphorus 2.1 mg/dL (2.5-4.90); Total Protein 4.6 g/dL (6.4-8.2)
[2022-02-12 08:34] LABS: Basophils # (auto) 0 10 ^3/uL (0-0.2); Basophils % (auto) 0.2 % (0.0-2.0); Eosinophils # (auto) 0 10 ^3/uL (0-0.8); Eosinophils % (auto) 0.1 % (0.0-7.0); Hematocrit 30.2 % (36.0-46.0); Hemoglobin 9.8 g/dL (12.2-16.2); Lymphocytes # (auto) 0.6 10 ^3/uL (0.4-5.4); Lymphocytes % (auto) 4.5 % (10.0-50.0); Mean Corpuscular Hemoglobin 32.8 pg (28.0-32.0); Mean Corpuscular Hgb Conc. 32.5 g/dL (32.0-36.0); Mean Corpuscular Volume 100.7 fL (80.0-100.0); Monocytes # (auto) 0.8 10 ^3/uL (0-1.3); Monocytes % (auto) 6.7 % (0.0-12.0); Neutrophils # (auto) 11.1 10 ^3/uL (1.6-8.6); Neutrophils % (auto) 88.5 % (37.0-80.0); Nucleated Red Blood Cells % 0.2 %; Red Cell Distribution Width 20.5 % (11.8-14.3); White Blood Cell 12.5 10^3/uL (4.4-10.8)
[2022-02-12] MEDS: INSULIN LANTUS (GLARGINE) 1 /0.01ml (100units/ml) SC SCH (10:00)
[2022-02-12] MEDS ORDERED: DEXTROSE (50%) 50ML SYRG IV PRN (12:00)
[2022-02-12] MEDS ORDERED: POTASSIUM PHOSPHATE 22 MEQ in SODIUM CHL 0.9% 100 ML IV ONE (12:00)
[2022-02-12] MEDS: SOD CHL 0.45% 1,000 ML IV SCH (12:38)
[2022-02-12] MEDS: Glucerna Carbsteady SHAKE Vanilla 8oz PO SCH ×2 (12:45→18:03)
[2022-02-12 16:11] VITALS: BP 169/67
[2022-02-12] MEDS ORDERED: REMDESIVIR PER PHARMACY 0 ML IV SCH (16:45)
[2022-02-12] MEDS: InsuLIN REG 1unit/0.01ml Soln (100units/ml) SC SCH ×2 (17:00→22:00)
[2022-02-12] MEDS: hydrALAZINE HCL 20 MG/ML VL IV PRN (17:25)
[2022-02-12] MEDS ORDERED: REMDESIVIR 200 MG in NS 210ml LOADING DOSE ADULT IV ONE (18:00)
[2022-02-12 22:00] VITALS: BP 148/61
[2022-02-13] VITALS (7 sets, daily range): BP systolic 127–165; BP diastolic 62–70
[2022-02-13] MEDS: PIPERACILLIN-TAZOB 2.25GM 50 ML IV SCH ×3 (03:54→16:47)
[2022-02-13] MEDS: ACCU-CHEK COMFORT CURVE STRIP VI SCH ×4 (06:41→22:08)
[2022-02-13] MEDS: InsuLIN REG 1unit/0.01ml Soln (100units/ml) SC SCH ×4 (06:41→22:07)
[2022-02-13 07:29] LABS: Phosphorus 2.1 mg/dL (2.5-4.90)
[2022-02-13] MEDS: DexAMETHasone 4 MG TAB PO SCH (08:31)
[2022-02-13] MEDS: ASCORBIC ACID 500 MG TAB PO SCH (08:31)
[2022-02-13] MEDS: ZINC SULFATE 220mg CAP or TAB PO SCH (08:31)
[2022-02-13] MEDS: CHOLECALCIFEROL (VITD3) 2,000 UNIT CAP/TAB PO SCH (08:31)
[2022-02-13] MEDS: Glucerna Carbsteady SHAKE Vanilla 8oz PO SCH ×3 (08:31→16:48)
[2022-02-13] MEDS ORDERED: POTASSIUM PHOSPHATE 22 MEQ in SODIUM CHL 0.9% 100 ML IV ONE (08:45)
[2022-02-13] MEDS: SOD CHL 0.45% 1,000 ML IV SCH (08:57)
[2022-02-13 09:00] LABS: Calcium 7.3 mg/dL (8.5-10.1); Potassium 5.2 mmol/L (3.5-5.1)
[2022-02-13] MEDS: MORPHINE SULFATE INJ 2 MG/ml SYRG IV PRN (09:03)
[2022-02-13 09:08] LABS: BUN/Creatinine Ratio 11.6; CRP High Sensitivity 1.22 mg/dL (< 0.3)
[2022-02-13] MEDS: INSULIN LANTUS (GLARGINE) 1 /0.01ml (100units/ml) SC SCH (10:00)
[2022-02-13] MEDS ORDERED: ENOXAPARIN SOD 40 MG/0.4 ML SYRINGE SC SCH (10:00)
[2022-02-13 10:25] LABS: Basophils # (auto) 0 10 ^3/uL (0-0.2); Eosinophils # (auto) 0 10 ^3/uL (0-0.8); Eosinophils % (auto) 0.3 % (0.0-7.0); Hemoglobin 9.5 g/dL (12.2-16.2); Monocytes # (auto) 0.7 10 ^3/uL (0-1.3); Neutrophils # (auto) 7.1 10 ^3/uL (1.6-8.6); White Blood Cell 8.5 10^3/uL (4.4-10.8)
[2022-02-13 10:26] LABS: Basophils % (auto) 0.3 % (0.0-2.0); Hematocrit 29.7 % (36.0-46.0); Lymphocytes # (auto) 0.6 10 ^3/uL (0.4-5.4); Lymphocytes % (auto) 7.3 % (10.0-50.0); Mean Corpuscular Hemoglobin 33.2 pg (28.0-32.0); Mean Corpuscular Hgb Conc. 32.1 g/dL (32.0-36.0); Monocytes % (auto) 8.6 % (0.0-12.0); Neutrophils % (auto) 83.5 % (37.0-80.0); Nucleated Red Blood Cells % 0.1 %; Red Blood Cells 2.87 10^6/uL (4.0-5.20)
[2022-02-13 11:02] LABS: Mean Corpuscular Volume 103.5 fL (80.0-100.0)
[2022-02-13] MEDS: hydrALAZINE HCL 20 MG/ML VL IV PRN (13:08)
[2022-02-13] MEDS ORDERED: REMDESIVIR 100mg 100 MG in SODIUM CHL 0.9% 230 ML IV SCH (15:00)
[2022-02-13] MEDS ORDERED: IOHEXOL 350 MG/ML 100ML IJ ONE (17:51)
[2022-02-14] MEDS: PIPERACILLIN-TAZOB 3.375GM 100 ML IV SCH ×5 (00:13→23:37)
[2022-02-14] MEDS: MORPHINE SULFATE INJ 2 MG/ml SYRG IV PRN ×4 (00:49→20:42)
[2022-02-14] MEDS: SOD CHL 0.45% 1,000 ML IV SCH (04:00)
[2022-02-14 05:00] VITALS: BP 149/57
[2022-02-14] MEDS: InsuLIN REG 1unit/0.01ml Soln (100units/ml) SC SCH ×4 (06:43→21:37)
[2022-02-14] MEDS: ACCU-CHEK COMFORT CURVE STRIP VI SCH ×4 (06:44→21:38)
[2022-02-14] MEDS: Glucerna Carbsteady SHAKE Vanilla 8oz PO SCH ×3 (07:42→17:24)
[2022-02-14 08:26] LABS: Basophils # (auto) 0 10 ^3/uL (0-0.2); Basophils % (auto) 0.1 % (0.0-2.0); Eosinophils # (auto) 0 10 ^3/uL (0-0.8); Hemoglobin 9.9 g/dL (12.2-16.2); Lymphocytes # (auto) 0.8 10 ^3/uL (0.4-5.4); Nucleated Red Blood Cells % 0.1 %
[2022-02-14 08:29] LABS: BUN/Creatinine Ratio 13.8; Calcium 7.7 mg/dL (8.5-10.1); Eosinophils % (auto) 0.1 % (0.0-7.0); Hematocrit 29.8 % (36.0-46.0); Lymphocytes % (auto) 10.1 % (10.0-50.0); Mean Corpuscular Hemoglobin 33.7 pg (28.0-32.0); Mean Corpuscular Hgb Conc. 33.1 g/dL (32.0-36.0); Mean Corpuscular Volume 101.9 fL (80.0-100.0); Monocytes # (auto) 0.5 10 ^3/uL (0-1.3); Monocytes % (auto) 6.5 % (0.0-12.0); Neutrophils # (auto) 6.8 10 ^3/uL (1.6-8.6); Neutrophils % (auto) 83.2 % (37.0-80.0); Potassium 4.2 mmol/L (3.5-5.1); Red Blood Cells 2.93 10^6/uL (4.0-5.20); Red Cell Distribution Width 19.7 % (11.8-14.3); White Blood Cell 8.2 10^3/uL (4.4-10.8)
[2022-02-14 09:07] VITALS: BP 151/61
[2022-02-14] MEDS: ONDANSETRON HCL 4 MG/2 ML VIAL IV PRN ×2 (09:19→17:09)
[2022-02-14] MEDS: ZINC SULFATE 220mg CAP or TAB PO SCH ×2 (09:20→10:00)
[2022-02-14] MEDS: DexAMETHasone 4 MG TAB PO SCH (09:20)
[2022-02-14] MEDS: CHOLECALCIFEROL (VITD3) 2,000 UNIT CAP/TAB PO SCH ×2 (09:20→10:00)
[2022-02-14] MEDS: INSULIN LANTUS (GLARGINE) 1 /0.01ml (100units/ml) SC SCH (09:24)
[2022-02-14] MEDS: ASCORBIC ACID 500 MG TAB PO SCH ×2 (09:33→10:00)
[2022-02-14] MEDS ORDERED: ENOXAPARIN SOD 60 MG/0.6 ML SYRINGE SC SCH (10:00)
[2022-02-14] MEDS ORDERED: FUROSEMIDE 20 MG/2 ML VIAL IV ONE (12:15)
[2022-02-14] MEDS ORDERED: ALUM & MAG HYDROX-SIMETH LIQ(MAALOX) 30 ML PO PRN (12:15)
[2022-02-14 13:00] VITALS: BP 142/64
[2022-02-14] MEDS: HYDROcodone-ACET 5/325MG TAB PO PRN (13:01)
[2022-02-14 17:00] VITALS: BP 151/61
[2022-02-14 22:00] VITALS: BP 160/69
[2022-02-15 05:00] VITALS: BP 151/62
[2022-02-15] MEDS: PIPERACILLIN-TAZOB 3.375GM 100 ML IV SCH ×3 (05:32→17:30)
[2022-02-15] MEDS: ACCU-CHEK COMFORT CURVE STRIP VI SCH ×4 (06:20→22:12)
[2022-02-15] MEDS: InsuLIN REG 1unit/0.01ml Soln (100units/ml) SC SCH ×4 (06:21→22:13)
[2022-02-15 08:10] LABS: Magnesium 1.7 mg/dL (1.6-2.6); Phosphorus 3.1 mg/dL (2.5-4.90)
[2022-02-15] MEDS: Glucerna Carbsteady SHAKE Vanilla 8oz PO SCH ×3 (08:32→17:36)
[2022-02-15] MEDS: ONDANSETRON HCL 4 MG/2 ML VIAL IV PRN ×2 (08:48→20:44)
[2022-02-15] MEDS: MORPHINE SULFATE INJ 2 MG/ml SYRG IV PRN ×3 (08:49→18:55)
[2022-02-15 09:00] VITALS: BP 111/57
[2022-02-15] MEDS: ZINC SULFATE 220mg CAP or TAB PO SCH (09:32)
[2022-02-15] MEDS: CHOLECALCIFEROL (VITD3) 2,000 UNIT CAP/TAB PO SCH (09:33)
[2022-02-15] MEDS: ASCORBIC ACID 500 MG TAB PO SCH (09:33)
[2022-02-15] MEDS: DexAMETHasone 4 MG TAB PO SCH (09:33)
[2022-02-15] MEDS: HYDROcodone-ACET 5/325MG TAB PO PRN ×3 (09:41→22:13)
[2022-02-15] MEDS: INSULIN LANTUS (GLARGINE) 1 /0.01ml (100units/ml) SC SCH (09:42)
[2022-02-15] MEDS: MAGNESIUM SULFATE 1GM/100ML 100 ML IV SCH ×3 (11:32→14:07)
[2022-02-15 13:00] VITALS: BP 115/58
[2022-02-15 17:29] VITALS: BP 118/73
[2022-02-15] MEDS ORDERED: MORPHINE SULFATE INJ 2 MG/ml SYRG IV ONE (20:15)
[2022-02-15] MEDS: ALUM & MAG HYDROX-SIMETH LIQ(MAALOX) 30 ML PO PRN (20:43)
[2022-02-15 21:32] VITALS: BP 143/53
[2022-02-16] MEDS: PIPERACILLIN-TAZOB 3.375GM 100 ML IV SCH ×5 (00:52→23:33)
[2022-02-16] MEDS: MORPHINE SULFATE 4 MG/ML SYR/VIAL IV PRN ×3 (00:53→13:19)
[2022-02-16] MEDS: ONDANSETRON HCL 4 MG/2 ML VIAL IV PRN ×3 (00:53→13:35)
[2022-02-16 04:01] LABS: Basophils # (auto) 0 10 ^3/uL (0-0.2); Basophils % (auto) 0.2 % (0.0-2.0); Eosinophils # (auto) 0 10 ^3/uL (0-0.8); Eosinophils % (auto) 0.2 % (0.0-7.0); Hematocrit 32.3 % (36.0-46.0); Hemoglobin 10.9 g/dL (12.2-16.2); Lymphocytes # (auto) 0.9 10 ^3/uL (0.4-5.4); Lymphocytes % (auto) 5.2 % (10.0-50.0); Mean Corpuscular Hemoglobin 33.4 pg (28.0-32.0); Mean Corpuscular Hgb Conc. 33.6 g/dL (32.0-36.0); Mean Corpuscular Volume 99.5 fL (80.0-100.0); Monocytes % (auto) 6.3 % (0.0-12.0); Neutrophils # (auto) 14.4 10 ^3/uL (1.6-8.6); Neutrophils % (auto) 88.1 % (37.0-80.0); Red Blood Cells 3.25 10^6/uL (4.0-5.20); Red Cell Distribution Width 19.3 % (11.8-14.3); White Blood Cell 16.4 10^3/uL (4.4-10.8)
[2022-02-16 04:25] LABS: Magnesium 2.5 mg/dL (1.6-2.6); Phosphorus 3.1 mg/dL (2.5-4.90)
[2022-02-16 04:44] VITALS: BP 155/69
[2022-02-16] MEDS: InsuLIN REG 1unit/0.01ml Soln (100units/ml) SC SCH ×4 (06:19→23:32)
[2022-02-16] MEDS: ACCU-CHEK COMFORT CURVE STRIP VI SCH ×4 (06:19→23:33)
[2022-02-16] MEDS: ALUM & MAG HYDROX-SIMETH LIQ(MAALOX) 30 ML PO PRN (06:31)
[2022-02-16] MEDS: Glucerna Carbsteady SHAKE Vanilla 8oz PO SCH ×3 (08:45→18:00)
[2022-02-16 09:00] VITALS: BP 137/58
[2022-02-16] MEDS: INSULIN LANTUS (GLARGINE) 1 /0.01ml (100units/ml) SC SCH (10:00)
[2022-02-16] MEDS: DexAMETHasone 4 MG TAB PO SCH (12:47)
[2022-02-16] MEDS: ASCORBIC ACID 500 MG TAB PO SCH (12:47)
[2022-02-16] MEDS: APIXABAN 5 MG TAB PO SCH ×2 (12:47→23:33)
[2022-02-16] MEDS: ZINC SULFATE 220mg CAP or TAB PO SCH (12:47)
[2022-02-16] MEDS: PANTOPRAZOLE 40 MG/10 ML VIAL INJ IV SCH (12:47)
[2022-02-16] MEDS: CHOLECALCIFEROL (VITD3) 2,000 UNIT CAP/TAB PO SCH (12:48)
[2022-02-16 13:00] VITALS: BP 127/59
[2022-02-16] MEDS: D5W/SOD CHL 0.45% 1,000 ML IV SCH (15:01)
[2022-02-16 17:00] VITALS: BP 148/58
[2022-02-16 22:00] VITALS: BP 158/59
[2022-02-17 05:00] VITALS: BP 159/67
[2022-02-17] MEDS: D5W/SOD CHL 0.45% 1,000 ML IV SCH (05:34)
[2022-02-17] MEDS: PIPERACILLIN-TAZOB 3.375GM 100 ML IV SCH (06:32)
[2022-02-17] MEDS: InsuLIN REG 1unit/0.01ml Soln (100units/ml) SC SCH ×4 (07:04→22:27)
[2022-02-17] MEDS: ACCU-CHEK COMFORT CURVE STRIP VI SCH ×4 (07:16→22:29)
[2022-02-17 07:32] LABS: Basophils # (auto) 0 10 ^3/uL (0-0.2); Basophils % (auto) 0.3 % (0.0-2.0); Eosinophils # (auto) 0.1 10 ^3/uL (0-0.8); Eosinophils % (auto) 0.8 % (0.0-7.0); Hematocrit 28.1 % (36.0-46.0); Hemoglobin 9.6 g/dL (12.2-16.2); Lymphocytes % (auto) 11.4 % (10.0-50.0); Mean Corpuscular Hemoglobin 33.4 pg (28.0-32.0); Mean Corpuscular Hgb Conc. 33.9 g/dL (32.0-36.0); Mean Corpuscular Volume 98.5 fL (80.0-100.0); Monocytes # (auto) 0.7 10 ^3/uL (0-1.3); Monocytes % (auto) 7.3 % (0.0-12.0); Neutrophils # (auto) 7.1 10 ^3/uL (1.6-8.6); Neutrophils % (auto) 80.2 % (37.0-80.0); Red Blood Cells 2.86 10^6/uL (4.0-5.20); Red Cell Distribution Width 18.1 % (11.8-14.3); White Blood Cell 8.9 10^3/uL (4.4-10.8)
[2022-02-17 07:49] LABS: Albumin 1.7 g/dL (3.4-5.0); Calcium 7.4 mg/dL (8.5-10.1); Magnesium 2.4 mg/dL (1.6-2.6); Potassium 3.2 mmol/L (3.5-5.1)
[2022-02-17 07:52] LABS: BUN/Creatinine Ratio 8.4; Bilirubin, Total 0.4 mg/dL (0.2-1.0); Phosphorus 2.2 mg/dL (2.5-4.90)
[2022-02-17] MEDS: Glucerna Carbsteady SHAKE Vanilla 8oz PO SCH ×3 (08:00→18:46)
[2022-02-17 09:00] VITALS: BP 149/62
[2022-02-17] MEDS: INSULIN LANTUS (GLARGINE) 1 /0.01ml (100units/ml) SC SCH (10:00)
[2022-02-17] MEDS: CHOLECALCIFEROL (VITD3) 2,000 UNIT CAP/TAB PO SCH (10:48)
[2022-02-17] MEDS: ZINC SULFATE 220mg CAP or TAB PO SCH (10:48)
[2022-02-17] MEDS: DexAMETHasone 4 MG TAB PO SCH (10:48)
[2022-02-17] MEDS: ASCORBIC ACID 500 MG TAB PO SCH (10:48)
[2022-02-17] MEDS: PANTOPRAZOLE 40 MG/10 ML VIAL INJ IV SCH ×2 (10:48→22:29)
[2022-02-17] MEDS: APIXABAN 5 MG TAB PO SCH ×2 (10:48→22:28)
[2022-02-17] MEDS ORDERED: POTASSIUM PHOSPHATE 26.4 MEQ in SODIUM CHL 0.9% 100 ML IV ONE (11:15)
[2022-02-17] MEDS ORDERED: hydrALAZINE HCL 20 MG/ML VL IV PRN (12:45)
[2022-02-17 13:00] VITALS: BP 155/57
[2022-02-17] MEDS: IPRATROPIUM BROM 0.5 MG/2.5ML INH SOL NEB SCH ×3 (14:09→22:29)
[2022-02-17 16:07] VITALS: BP 143/60
[2022-02-17] MEDS: SUCRALFATE 1 GM/10 ML ORAL SUSP PO SCH ×2 (18:46→22:28)
[2022-02-17] MEDS: DOXYCYCLINE 100 MG TAB/CAP PO SCH ×2 (18:46→22:28)
[2022-02-17 21:27] VITALS: BP 143/60
[2022-02-17 22:14] VITALS: BP 132/60
[2022-02-18] MEDS: IPRATROPIUM BROM 0.5 MG/2.5ML INH SOL NEB SCH ×6 (02:31→22:05)
[2022-02-18] MEDS: SUCRALFATE 1 GM/10 ML ORAL SUSP PO SCH ×4 (06:37→22:16)
[2022-02-18] MEDS: InsuLIN REG 1unit/0.01ml Soln (100units/ml) SC SCH ×4 (06:47→22:21)
[2022-02-18] MEDS: ACCU-CHEK COMFORT CURVE STRIP VI SCH ×3 (06:48→16:53)
[2022-02-18] MEDS: Glucerna Carbsteady SHAKE Vanilla 8oz PO SCH ×3 (08:30→19:10)
[2022-02-18 09:00] VITALS: BP 149/61
[2022-02-18 13:00] VITALS: BP 162/59
[2022-02-18] MEDS: ZINC SULFATE 220mg CAP or TAB PO SCH (13:27)
[2022-02-18] MEDS: PANTOPRAZOLE 40 MG/10 ML VIAL INJ IV SCH ×2 (13:27→22:17)
[2022-02-18] MEDS: DexAMETHasone 4 MG TAB PO SCH (13:28)
[2022-02-18] MEDS: DOXYCYCLINE 100 MG TAB/CAP PO SCH ×2 (13:29→22:17)
[2022-02-18] MEDS: CHOLECALCIFEROL (VITD3) 2,000 UNIT CAP/TAB PO SCH (13:29)
[2022-02-18] MEDS: APIXABAN 5 MG TAB PO SCH ×2 (13:29→22:17)
[2022-02-18] MEDS: ASCORBIC ACID 500 MG TAB PO SCH (13:29)
[2022-02-18] MEDS: INSULIN LANTUS (GLARGINE) 1 /0.01ml (100units/ml) SC SCH (13:32)
[2022-02-18 17:00] VITALS: BP 132/52
[2022-02-18] MEDS: HYDROcodone-ACET 5/325MG TAB PO PRN (20:31)
[2022-02-18 21:44] VITALS: BP 122/50
[2022-02-19] MEDS: IPRATROPIUM BROM 0.5 MG/2.5ML INH SOL NEB SCH ×7 (01:50→22:33)
[2022-02-19 04:44] VITALS: BP 141/61
[2022-02-19] MEDS: SUCRALFATE 1 GM/10 ML ORAL SUSP PO SCH ×4 (07:00→21:31)
[2022-02-19] MEDS: InsuLIN REG 1unit/0.01ml Soln (100units/ml) SC SCH ×4 (07:00→22:08)
[2022-02-19] MEDS: ACCU-CHEK COMFORT CURVE STRIP VI SCH ×5 (07:12→21:32)
[2022-02-19] MEDS: Glucerna Carbsteady SHAKE Vanilla 8oz PO SCH ×3 (08:00→17:54)
[2022-02-19 08:10] VITALS: BP 140/62
[2022-02-19 08:34] VITALS: BP 140/62
[2022-02-19] MEDS: ZINC SULFATE 220mg CAP or TAB PO SCH (11:21)
[2022-02-19] MEDS: DOXYCYCLINE 100 MG TAB/CAP PO SCH ×2 (11:22→21:32)
[2022-02-19] MEDS: APIXABAN 5 MG TAB PO SCH ×2 (11:22→21:31)
[2022-02-19] MEDS: DexAMETHasone 4 MG TAB PO SCH (11:22)
[2022-02-19] MEDS: PANTOPRAZOLE 40 MG/10 ML VIAL INJ IV SCH ×2 (11:23→21:31)
[2022-02-19] MEDS: CHOLECALCIFEROL (VITD3) 2,000 UNIT CAP/TAB PO SCH (11:23)
[2022-02-19] MEDS: ASCORBIC ACID 500 MG TAB PO SCH ×2 (11:23→11:37)
[2022-02-19] MEDS: INSULIN LANTUS (GLARGINE) 1 /0.01ml (100units/ml) SC SCH (11:30)
[2022-02-19] MEDS: LIDOCAINE VISCOUS 2% 15ML UD PO PRN ×2 (12:02→17:54)
[2022-02-19] MEDS: ONDANSETRON HCL 4 MG/2 ML VIAL IV PRN (12:38)
[2022-02-19 12:45] VITALS: BP 150/60
[2022-02-19] MEDS: HYDROcodone-ACET 5/325MG TAB PO PRN (21:30)
[2022-02-19 22:32] VITALS: BP 143/65
[2022-02-20] VITALS (8 sets, daily range): BP systolic 119–176; BP diastolic 56–74
[2022-02-20] MEDS: SUCRALFATE 1 GM/10 ML ORAL SUSP PO SCH ×4 (05:40→21:57)
[2022-02-20] MEDS: InsuLIN REG 1unit/0.01ml Soln (100units/ml) SC SCH ×4 (06:31→22:24)
[2022-02-20] MEDS: ACCU-CHEK COMFORT CURVE STRIP VI SCH ×4 (06:32→21:57)
[2022-02-20] MEDS: IPRATROPIUM BROM 0.5 MG/2.5ML INH SOL NEB SCH ×5 (06:44→21:37)
[2022-02-20] MEDS: hydrALAZINE HCL 20 MG/ML VL IV PRN (06:51)
[2022-02-20] MEDS: Glucerna Carbsteady SHAKE Vanilla 8oz PO SCH ×3 (07:04→18:05)
[2022-02-20] MEDS: MORPHINE SULFATE 4 MG/ML SYR/VIAL IV PRN (08:30)
[2022-02-20] MEDS: PANTOPRAZOLE 40 MG/10 ML VIAL INJ IV SCH ×2 (10:50→21:56)
[2022-02-20] MEDS: DOXYCYCLINE 100 MG TAB/CAP PO SCH ×2 (10:51→21:57)
[2022-02-20] MEDS: APIXABAN 5 MG TAB PO SCH ×2 (10:51→21:57)
[2022-02-20] MEDS: DexAMETHasone 4 MG TAB PO SCH (10:52)
[2022-02-20 10:56] LABS: Basophils # (auto) 0 10 ^3/uL (0-0.2); Basophils % (auto) 0.3 % (0.0-2.0); Eosinophils # (auto) 0 10 ^3/uL (0-0.8); Eosinophils % (auto) 0.4 % (0.0-7.0); Hematocrit 30.6 % (36.0-46.0); Hemoglobin 10.1 g/dL (12.2-16.2); Lymphocytes # (auto) 1.5 10 ^3/uL (0.4-5.4); Mean Corpuscular Hemoglobin 32.3 pg (28.0-32.0); Mean Corpuscular Volume 97.9 fL (80.0-100.0); Monocytes # (auto) 0.7 10 ^3/uL (0-1.3); Monocytes % (auto) 9.3 % (0.0-12.0); Neutrophils # (auto) 5.8 10 ^3/uL (1.6-8.6); Red Blood Cells 3.13 10^6/uL (4.0-5.20); Red Cell Distribution Width 17.3 % (11.8-14.3)
[2022-02-20] MEDS: CHOLECALCIFEROL (VITD3) 2,000 UNIT CAP/TAB PO SCH (10:56)
[2022-02-20] MEDS: ASCORBIC ACID 500 MG TAB PO SCH (10:56)
[2022-02-20] MEDS: ZINC SULFATE 220mg CAP or TAB PO SCH (10:56)
[2022-02-20] MEDS: INSULIN LANTUS (GLARGINE) 1 /0.01ml (100units/ml) SC SCH (11:01)
[2022-02-20 11:12] LABS: Albumin 1.8 g/dL (3.4-5.0); BUN/Creatinine Ratio 8.1; Calcium 7.6 mg/dL (8.5-10.1); Magnesium 1.9 mg/dL (1.6-2.6); Potassium 3.2 mmol/L (3.5-5.1)
[2022-02-20 11:14] LABS: Bilirubin, Total 0.3 mg/dL (0.2-1.0); Phosphorus 2.4 mg/dL (2.5-4.90); Total Protein 5.1 g/dL (6.4-8.2)
[2022-02-20] MEDS: LIDOCAINE VISCOUS 2% 15ML UD PO PRN ×2 (12:19→18:04)
[2022-02-21] VITALS (7 sets, daily range): BP systolic 130–155; BP diastolic 47–72
[2022-02-21] MEDS: IPRATROPIUM BROM 0.5 MG/2.5ML INH SOL NEB SCH ×2 (02:40→07:23)
[2022-02-21] MEDS: SUCRALFATE 1 GM/10 ML ORAL SUSP PO SCH ×4 (06:37→21:34)
[2022-02-21] MEDS: ACCU-CHEK COMFORT CURVE STRIP VI SCH ×4 (06:37→21:33)
[2022-02-21] MEDS: InsuLIN REG 1unit/0.01ml Soln (100units/ml) SC SCH ×4 (07:00→21:40)
[2022-02-21] MEDS: Glucerna Carbsteady SHAKE Vanilla 8oz PO SCH ×3 (08:07→18:24)
[2022-02-21] MEDS: DexAMETHasone 4 MG TAB PO SCH (09:31)
[2022-02-21] MEDS: APIXABAN 5 MG TAB PO SCH ×2 (09:31→21:34)
[2022-02-21] MEDS: PANTOPRAZOLE 40 MG/10 ML VIAL INJ IV SCH ×2 (09:31→21:34)
[2022-02-21] MEDS: DOXYCYCLINE 100 MG TAB/CAP PO SCH ×2 (09:32→21:34)
[2022-02-21] MEDS: ZINC SULFATE 220mg CAP or TAB PO SCH (09:33)
[2022-02-21] MEDS: ASCORBIC ACID 500 MG TAB PO SCH (09:34)
[2022-02-21] MEDS: CHOLECALCIFEROL (VITD3) 2,000 UNIT CAP/TAB PO SCH (09:34)
[2022-02-21] MEDS: INSULIN LANTUS (GLARGINE) 1 /0.01ml (100units/ml) SC SCH (10:00)
[2022-02-21] MEDS ORDERED: IPRATROPIUM BROM 0.5 MG/2.5ML INH SOL NEB PRN (10:45)
[2022-02-21] MEDS: LIDOCAINE VISCOUS 2% 15ML UD PO PRN (17:00)
[2022-02-21] MEDS: MORPHINE SULFATE 4 MG/ML SYR/VIAL IV PRN (17:37)
[2022-02-21] MEDS: HYDROcodone-ACET 5/325MG TAB PO PRN (21:57)
[2022-02-22] MEDS: MORPHINE SULFATE 4 MG/ML SYR/VIAL IV PRN (03:00)
[2022-02-22 05:00] VITALS: BP 168/73
[2022-02-22] MEDS: hydrALAZINE HCL 20 MG/ML VL IV PRN (06:21)
[2022-02-22] MEDS: InsuLIN REG 1unit/0.01ml Soln (100units/ml) SC SCH ×4 (06:30→22:34)
[2022-02-22] MEDS: ACCU-CHEK COMFORT CURVE STRIP VI SCH ×4 (06:30→22:04)
[2022-02-22] MEDS: SUCRALFATE 1 GM/10 ML ORAL SUSP PO SCH ×4 (06:30→22:03)
[2022-02-22 08:00] VITALS: BP 138/68
[2022-02-22] MEDS: Glucerna Carbsteady SHAKE Vanilla 8oz PO SCH ×3 (08:00→18:40)
[2022-02-22 09:00] VITALS: BP 108/53
[2022-02-22] MEDS: APIXABAN 5 MG TAB PO SCH ×2 (10:00→22:03)
[2022-02-22] MEDS: ZINC SULFATE 220mg CAP or TAB PO SCH (10:00)
[2022-02-22] MEDS: ASCORBIC ACID 500 MG TAB PO SCH (10:00)
[2022-02-22] MEDS: INSULIN LANTUS (GLARGINE) 1 /0.01ml (100units/ml) SC SCH (10:00)
[2022-02-22] MEDS: DexAMETHasone 4 MG TAB PO SCH (10:00)
[2022-02-22] MEDS: CARVEDILOL 3.125 MG TAB PO SCH ×2 (10:00→22:03)
[2022-02-22] MEDS: CHOLECALCIFEROL (VITD3) 2,000 UNIT CAP/TAB PO SCH (10:00)
[2022-02-22] MEDS: PANTOPRAZOLE 40 MG/10 ML VIAL INJ IV SCH ×2 (10:00→22:03)
[2022-02-22] MEDS: DOXYCYCLINE 100 MG TAB/CAP PO SCH ×2 (10:00→22:04)
[2022-02-22] MEDS: LIDOCAINE VISCOUS 2% 15ML UD PO PRN ×2 (12:00→18:00)
[2022-02-22 13:00] VITALS: BP 127/68
[2022-02-22 16:51] VITALS: BP 138/68
[2022-02-23 05:07] VITALS: BP 148/72
[2022-02-23 05:56] LABS: Basophils # (auto) 0 10 ^3/uL (0-0.2); Basophils % (auto) 0.2 % (0.0-2.0); Eosinophils # (auto) 0 10 ^3/uL (0-0.8); Eosinophils % (auto) 0.3 % (0.0-7.0); Hematocrit 27.5 % (36.0-46.0); Hemoglobin 9.4 g/dL (12.2-16.2); Lymphocytes # (auto) 1.6 10 ^3/uL (0.4-5.4); Lymphocytes % (auto) 21.6 % (10.0-50.0); Mean Corpuscular Hgb Conc. 34.3 g/dL (32.0-36.0); Mean Corpuscular Volume 96.3 fL (80.0-100.0); Monocytes # (auto) 0.5 10 ^3/uL (0-1.3); Monocytes % (auto) 6.1 % (0.0-12.0); Neutrophils # (auto) 5.5 10 ^3/uL (1.6-8.6); Neutrophils % (auto) 71.8 % (37.0-80.0); Red Blood Cells 2.85 10^6/uL (4.0-5.20); Red Cell Distribution Width 17.3 % (11.8-14.3); White Blood Cell 7.6 10^3/uL (4.4-10.8)
[2022-02-23 06:04] LABS: Albumin 1.8 g/dL (3.4-5.0); Calcium 7.8 mg/dL (8.5-10.1); Potassium 3.6 mmol/L (3.5-5.1)
[2022-02-23] MEDS: SUCRALFATE 1 GM/10 ML ORAL SUSP PO SCH ×4 (06:05→22:00)
[2022-02-23] MEDS: ACCU-CHEK COMFORT CURVE STRIP VI SCH ×4 (06:05→21:15)
[2022-02-23] MEDS: InsuLIN REG 1unit/0.01ml Soln (100units/ml) SC SCH ×4 (06:06→22:46)
[2022-02-23 06:08] LABS: BUN/Creatinine Ratio 11.9; Bilirubin, Total 0.3 mg/dL (0.2-1.0); Total Protein 4.8 g/dL (6.4-8.2)
[2022-02-23 08:00] VITALS: BP 130/82
[2022-02-23 09:00] VITALS: BP 133/73
[2022-02-23] MEDS: ZINC SULFATE 220mg CAP or TAB PO SCH (10:00)
[2022-02-23] MEDS: CHOLECALCIFEROL (VITD3) 2,000 UNIT CAP/TAB PO SCH (10:00)
[2022-02-23] MEDS: ASCORBIC ACID 500 MG TAB PO SCH (10:00)
[2022-02-23] MEDS: Glucerna Carbsteady SHAKE Vanilla 8oz PO SCH ×3 (11:14→18:29)
[2022-02-23] MEDS: PANTOPRAZOLE 40 MG/10 ML VIAL INJ IV SCH ×2 (11:14→21:16)
[2022-02-23] MEDS: APIXABAN 5 MG TAB PO SCH ×2 (11:15→21:17)
[2022-02-23] MEDS: DexAMETHasone 4 MG TAB PO SCH (11:15)
[2022-02-23] MEDS: DOXYCYCLINE 100 MG TAB/CAP PO SCH ×2 (11:15→21:15)
[2022-02-23] MEDS: CARVEDILOL 3.125 MG TAB PO SCH ×2 (11:15→21:15)
[2022-02-23] MEDS: INSULIN LANTUS (GLARGINE) 1 /0.01ml (100units/ml) SC SCH (11:18)
[2022-02-23] MEDS: LIDOCAINE VISCOUS 2% 15ML UD PO PRN (11:19)
[2022-02-23] MEDS: MORPHINE SULFATE 4 MG/ML SYR/VIAL IV PRN (11:20)
[2022-02-23 13:00] VITALS: BP 139/56
[2022-02-23 16:51] VITALS: BP 132/71
[2022-02-23 22:00] VITALS: BP 152/78
[2022-02-24 05:00] VITALS: BP 136/77
[2022-02-24] MEDS: ACCU-CHEK COMFORT CURVE STRIP VI SCH ×4 (06:39→22:25)
[2022-02-24] MEDS: SUCRALFATE 1 GM/10 ML ORAL SUSP PO SCH ×4 (06:39→22:24)
[2022-02-24] MEDS: InsuLIN REG 1unit/0.01ml Soln (100units/ml) SC SCH ×4 (06:41→22:27)
[2022-02-24] MEDS: Glucerna Carbsteady SHAKE Vanilla 8oz PO SCH ×3 (08:55→17:08)
[2022-02-24] MEDS: PANTOPRAZOLE 40 MG/10 ML VIAL INJ IV SCH ×2 (08:56→22:24)
[2022-02-24] MEDS: ZINC SULFATE 220mg CAP or TAB PO SCH (08:57)
[2022-02-24] MEDS: CARVEDILOL 3.125 MG TAB PO SCH ×2 (08:57→22:25)
[2022-02-24] MEDS: DexAMETHasone 4 MG TAB PO SCH (08:58)
[2022-02-24] MEDS: APIXABAN 5 MG TAB PO SCH ×2 (08:59→22:24)
[2022-02-24] MEDS: DOXYCYCLINE 100 MG TAB/CAP PO SCH ×2 (08:59→22:24)
[2022-02-24 09:00] VITALS: BP 143/78
[2022-02-24] MEDS: ASCORBIC ACID 500 MG TAB PO SCH (09:00)
[2022-02-24] MEDS: CHOLECALCIFEROL (VITD3) 2,000 UNIT CAP/TAB PO SCH (09:00)
[2022-02-24] MEDS: INSULIN LANTUS (GLARGINE) 1 /0.01ml (100units/ml) SC SCH (09:06)
[2022-02-24 13:00] VITALS: BP 136/67
[2022-02-24 16:48] VITALS: BP 135/60
[2022-02-24] MEDS: LIDOCAINE VISCOUS 2% 15ML UD PO PRN (18:09)
[2022-02-24 22:00] VITALS: BP 136/59
[2022-02-25 05:00] VITALS: BP 157/73
[2022-02-25] MEDS: SUCRALFATE 1 GM/10 ML ORAL SUSP PO SCH ×4 (06:45→21:43)
[2022-02-25] MEDS: ACCU-CHEK COMFORT CURVE STRIP VI SCH ×4 (06:45→21:43)
[2022-02-25] MEDS: InsuLIN REG 1unit/0.01ml Soln (100units/ml) SC SCH ×4 (06:46→23:00)
[2022-02-25 06:47] VITALS: BP 139/67
[2022-02-25] MEDS: ACETAMINOPHEN 325 MG TAB PO PRN (06:49)
[2022-02-25] MEDS: Glucerna Carbsteady SHAKE Vanilla 8oz PO SCH ×3 (08:00→17:59)
[2022-02-25 09:00] VITALS: BP 138/71
[2022-02-25] MEDS: CHOLECALCIFEROL (VITD3) 2,000 UNIT CAP/TAB PO SCH (09:14)
[2022-02-25] MEDS: PANTOPRAZOLE 40 MG/10 ML VIAL INJ IV SCH ×2 (09:14→21:43)
[2022-02-25] MEDS: MORPHINE SULFATE 4 MG/ML SYR/VIAL IV PRN (09:14)
[2022-02-25] MEDS: ASCORBIC ACID 500 MG TAB PO SCH (09:15)
[2022-02-25] MEDS: CARVEDILOL 3.125 MG TAB PO SCH ×2 (09:16→21:45)
[2022-02-25] MEDS: APIXABAN 5 MG TAB PO SCH ×2 (09:16→21:43)
[2022-02-25] MEDS: DexAMETHasone 4 MG TAB PO SCH (09:16)
[2022-02-25] MEDS: ZINC SULFATE 220mg CAP or TAB PO SCH (09:20)
[2022-02-25] MEDS: DOXYCYCLINE 100 MG TAB/CAP PO SCH ×2 (09:20→21:43)
[2022-02-25] MEDS: INSULIN LANTUS (GLARGINE) 1 /0.01ml (100units/ml) SC SCH (09:22)
[2022-02-25 13:00] VITALS: BP 84/21
[2022-02-25 17:00] VITALS: BP 115/72
[2022-02-25 22:00] VITALS: BP 123/57
[2022-02-26] VITALS (7 sets, daily range): BP systolic 130–161; BP diastolic 48–82
[2022-02-26 05:12] LABS: Basophils # (auto) 0.1 10 ^3/uL (0-0.2); Basophils % (auto) 1.1 % (0.0-2.0); Eosinophils # (auto) 0 10 ^3/uL (0-0.8); Eosinophils % (auto) 0.7 % (0.0-7.0); Hematocrit 28.9 % (36.0-46.0); Hemoglobin 9.9 g/dL (12.2-16.2); Lymphocytes # (auto) 1.3 10 ^3/uL (0.4-5.4); Lymphocytes % (auto) 20.5 % (10.0-50.0); Mean Corpuscular Hemoglobin 32.9 pg (28.0-32.0); Mean Corpuscular Hgb Conc. 34.2 g/dL (32.0-36.0); Mean Corpuscular Volume 96.2 fL (80.0-100.0); Monocytes # (auto) 0.4 10 ^3/uL (0-1.3); Monocytes % (auto) 6.9 % (0.0-12.0); Neutrophils # (auto) 4.6 10 ^3/uL (1.6-8.6); Neutrophils % (auto) 70.8 % (37.0-80.0); Red Cell Distribution Width 17.2 % (11.8-14.3); White Blood Cell 6.5 10^3/uL (4.4-10.8)
[2022-02-26 05:29] LABS: BUN/Creatinine Ratio 14.3; Calcium 8.1 mg/dL (8.5-10.1)
[2022-02-26 05:31] LABS: Bilirubin, Total 0.3 mg/dL (0.2-1.0)
[2022-02-26] MEDS: ACCU-CHEK COMFORT CURVE STRIP VI SCH ×4 (06:16→20:47)
[2022-02-26] MEDS: SUCRALFATE 1 GM/10 ML ORAL SUSP PO SCH ×4 (06:16→22:45)
[2022-02-26] MEDS: InsuLIN REG 1unit/0.01ml Soln (100units/ml) SC SCH ×4 (06:17→22:44)
[2022-02-26] MEDS: Glucerna Carbsteady SHAKE Vanilla 8oz PO SCH ×3 (07:50→18:00)
[2022-02-26] MEDS: MORPHINE SULFATE 4 MG/ML SYR/VIAL IV PRN (09:52)
[2022-02-26] MEDS: PANTOPRAZOLE 40 MG/10 ML VIAL INJ IV SCH ×2 (09:52→22:44)
[2022-02-26] MEDS: DOXYCYCLINE 100 MG TAB/CAP PO SCH ×2 (09:56→22:46)
[2022-02-26] MEDS: ASCORBIC ACID 500 MG TAB PO SCH (09:56)
[2022-02-26] MEDS: ZINC SULFATE 220mg CAP or TAB PO SCH (09:56)
[2022-02-26] MEDS: APIXABAN 5 MG TAB PO SCH ×2 (09:57→22:46)
[2022-02-26] MEDS: CHOLECALCIFEROL (VITD3) 2,000 UNIT CAP/TAB PO SCH (09:57)
[2022-02-26] MEDS: CARVEDILOL 3.125 MG TAB PO SCH ×2 (09:58→22:45)
[2022-02-26] MEDS: DexAMETHasone 4 MG TAB PO SCH (09:59)
[2022-02-26] MEDS: INSULIN LANTUS (GLARGINE) 1 /0.01ml (100units/ml) SC SCH (10:12)
[2022-02-27 05:00] VITALS: BP 172/57
[2022-02-27] MEDS: SUCRALFATE 1 GM/10 ML ORAL SUSP PO SCH ×4 (06:29→23:06)
[2022-02-27] MEDS: ACCU-CHEK COMFORT CURVE STRIP VI SCH ×4 (06:29→23:06)
[2022-02-27] MEDS: InsuLIN REG 1unit/0.01ml Soln (100units/ml) SC SCH ×4 (06:47→22:22)
[2022-02-27 08:00] VITALS: BP 130/82
[2022-02-27] MEDS: Glucerna Carbsteady SHAKE Vanilla 8oz PO SCH ×3 (08:00→19:00)
[2022-02-27 08:40] VITALS: BP 114/53
[2022-02-27] MEDS: ACETAMINOPHEN 325 MG TAB PO PRN (08:52)
[2022-02-27] MEDS: INSULIN LANTUS (GLARGINE) 1 /0.01ml (100units/ml) SC SCH (10:00)
[2022-02-27] MEDS: APIXABAN 5 MG TAB PO SCH ×2 (10:49→23:05)
[2022-02-27] MEDS: PANTOPRAZOLE 40 MG/10 ML VIAL INJ IV SCH ×2 (10:49→23:05)
[2022-02-27] MEDS: DOXYCYCLINE 100 MG TAB/CAP PO SCH ×2 (10:50→23:04)
[2022-02-27] MEDS: ZINC SULFATE 220mg CAP or TAB PO SCH (10:50)
[2022-02-27] MEDS: CHOLECALCIFEROL (VITD3) 2,000 UNIT CAP/TAB PO SCH (10:51)
[2022-02-27] MEDS: ASCORBIC ACID 500 MG TAB PO SCH (10:52)
[2022-02-27] MEDS: CARVEDILOL 3.125 MG TAB PO SCH ×2 (10:53→23:05)
[2022-02-27] MEDS: DexAMETHasone 4 MG TAB PO SCH (10:55)
[2022-02-27 12:45] VITALS: BP 130/68
[2022-02-27 16:45] VITALS: BP 124/59
[2022-02-27] MEDS: HYDROcodone-ACET 5/325MG TAB PO PRN (22:30)
[2022-02-28] VITALS (7 sets, daily range): BP systolic 106–159; BP diastolic 46–82
[2022-02-28] MEDS: InsuLIN REG 1unit/0.01ml Soln (100units/ml) SC SCH ×4 (06:38→21:31)
[2022-02-28] MEDS: ACCU-CHEK COMFORT CURVE STRIP VI SCH ×4 (06:42→21:37)
[2022-02-28] MEDS: SUCRALFATE 1 GM/10 ML ORAL SUSP PO SCH ×4 (06:42→21:38)
[2022-02-28] MEDS: HYDROcodone-ACET 5/325MG TAB PO PRN ×2 (06:43→21:38)
[2022-02-28] MEDS: Glucerna Carbsteady SHAKE Vanilla 8oz PO SCH ×3 (07:49→18:00)
[2022-02-28] MEDS: DexAMETHasone 4 MG TAB PO SCH (10:00)
[2022-02-28] MEDS: ASCORBIC ACID 500 MG TAB PO SCH (10:49)
[2022-02-28] MEDS: DOXYCYCLINE 100 MG TAB/CAP PO SCH (10:50)
[2022-02-28] MEDS: ZINC SULFATE 220mg CAP or TAB PO SCH (10:50)
[2022-02-28] MEDS: PANTOPRAZOLE 40 MG/10 ML VIAL INJ IV SCH ×2 (10:51→21:38)
[2022-02-28] MEDS: CHOLECALCIFEROL (VITD3) 2,000 UNIT CAP/TAB PO SCH (10:51)
[2022-02-28] MEDS: APIXABAN 5 MG TAB PO SCH ×2 (10:51→21:37)
[2022-02-28] MEDS: CARVEDILOL 3.125 MG TAB PO SCH ×2 (10:52→21:38)
[2022-02-28] MEDS: INSULIN LANTUS (GLARGINE) 1 /0.01ml (100units/ml) SC SCH (11:01)
[2022-03-01 05:00] VITALS: BP 149/63
[2022-03-01] MEDS: InsuLIN REG 1unit/0.01ml Soln (100units/ml) SC SCH ×4 (06:25→22:29)
[2022-03-01] MEDS: SUCRALFATE 1 GM/10 ML ORAL SUSP PO SCH ×4 (06:30→22:37)
[2022-03-01] MEDS: ACCU-CHEK COMFORT CURVE STRIP VI SCH ×4 (06:30→22:27)
[2022-03-01] MEDS: HYDROcodone-ACET 5/325MG TAB PO PRN ×2 (06:31→22:36)
[2022-03-01] MEDS: Glucerna Carbsteady SHAKE Vanilla 8oz PO SCH ×3 (08:00→18:00)
[2022-03-01 09:00] VITALS: BP 143/64
[2022-03-01] MEDS: predniSONE 20 MG TAB PO SCH (10:49)
[2022-03-01] MEDS: ZINC SULFATE 220mg CAP or TAB PO SCH (10:49)
[2022-03-01] MEDS: APIXABAN 5 MG TAB PO SCH ×2 (10:49→22:35)
[2022-03-01] MEDS: ASCORBIC ACID 500 MG TAB PO SCH (10:49)
[2022-03-01] MEDS: CHOLECALCIFEROL (VITD3) 2,000 UNIT CAP/TAB PO SCH (10:50)
[2022-03-01] MEDS: CARVEDILOL 3.125 MG TAB PO SCH ×2 (10:51→22:36)
[2022-03-01] MEDS: PANTOPRAZOLE 40 MG/10 ML VIAL INJ IV SCH ×2 (10:52→22:41)
[2022-03-01] MEDS: INSULIN LANTUS (GLARGINE) 1 /0.01ml (100units/ml) SC SCH (11:01)
[2022-03-01 13:00] VITALS: BP 149/69
[2022-03-01 22:00] VITALS: BP 154/66
[2022-03-02 05:00] VITALS: BP 118/58
[2022-03-02] MEDS: SUCRALFATE 1 GM/10 ML ORAL SUSP PO SCH ×4 (06:17→22:28)
[2022-03-02] MEDS: ACCU-CHEK COMFORT CURVE STRIP VI SCH ×4 (06:18→22:29)
[2022-03-02] MEDS: InsuLIN REG 1unit/0.01ml Soln (100units/ml) SC SCH ×4 (06:22→22:39)
[2022-03-02] MEDS: Glucerna Carbsteady SHAKE Vanilla 8oz PO SCH ×3 (08:00→17:46)
[2022-03-02 09:00] VITALS: BP 132/69
[2022-03-02 09:45] LABS: Basophils # (auto) 0 10 ^3/uL (0-0.2); Basophils % (auto) 0.6 % (0.0-2.0); Eosinophils # (auto) 0.1 10 ^3/uL (0-0.8); Eosinophils % (auto) 1.3 % (0.0-7.0); Hematocrit 27.4 % (36.0-46.0); Hemoglobin 9.4 g/dL (12.2-16.2); Lymphocytes # (auto) 1.5 10 ^3/uL (0.4-5.4); Lymphocytes % (auto) 23.1 % (10.0-50.0); Mean Corpuscular Hgb Conc. 34.2 g/dL (32.0-36.0); Mean Corpuscular Volume 96.4 fL (80.0-100.0); Monocytes # (auto) 0.5 10 ^3/uL (0-1.3); Monocytes % (auto) 7.8 % (0.0-12.0); Neutrophils # (auto) 4.3 10 ^3/uL (1.6-8.6); Neutrophils % (auto) 67.2 % (37.0-80.0); Red Blood Cells 2.84 10^6/uL (4.0-5.20); Red Cell Distribution Width 16.4 % (11.8-14.3); White Blood Cell 6.4 10^3/uL (4.4-10.8)
[2022-03-02 10:01] LABS: Albumin 2.2 g/dL (3.4-5.0); Calcium 8.1 mg/dL (8.5-10.1); Magnesium 1.4 mg/dL (1.6-2.6); Potassium 3.6 mmol/L (3.5-5.1)
[2022-03-02 10:04] LABS: BUN/Creatinine Ratio 22.3; Bilirubin, Total 0.2 mg/dL (0.2-1.0); Phosphorus 2.5 mg/dL (2.5-4.90); Total Protein 5.4 g/dL (6.4-8.2)
[2022-03-02] MEDS: CHOLECALCIFEROL (VITD3) 2,000 UNIT CAP/TAB PO SCH (10:55)
[2022-03-02] MEDS: APIXABAN 5 MG TAB PO SCH ×2 (10:55→22:29)
[2022-03-02] MEDS: PANTOPRAZOLE 40 MG/10 ML VIAL INJ IV SCH ×2 (10:55→22:28)
[2022-03-02] MEDS: HYDROcodone-ACET 5/325MG TAB PO PRN ×3 (10:56→22:43)
[2022-03-02] MEDS: ASCORBIC ACID 500 MG TAB PO SCH (10:56)
[2022-03-02] MEDS: predniSONE 20 MG TAB PO SCH (10:58)
[2022-03-02] MEDS: ZINC SULFATE 220mg CAP or TAB PO SCH (10:58)
[2022-03-02] MEDS: CARVEDILOL 3.125 MG TAB PO SCH ×2 (10:59→22:29)
[2022-03-02] MEDS: INSULIN LANTUS (GLARGINE) 1 /0.01ml (100units/ml) SC SCH (11:09)
[2022-03-02 13:42] VITALS: BP 113/64
[2022-03-02 18:05] VITALS: BP 103/66
[2022-03-02 22:00] VITALS: BP 151/65
[2022-03-03] VITALS (7 sets, daily range): BP systolic 142–161; BP diastolic 57–86
[2022-03-03] MEDS: ACCU-CHEK COMFORT CURVE STRIP VI SCH ×4 (06:22→22:39)
[2022-03-03] MEDS: SUCRALFATE 1 GM/10 ML ORAL SUSP PO SCH ×4 (06:24→22:47)
[2022-03-03] MEDS: InsuLIN REG 1unit/0.01ml Soln (100units/ml) SC SCH ×4 (06:24→22:46)
[2022-03-03] MEDS: Glucerna Carbsteady SHAKE Vanilla 8oz PO SCH ×3 (08:00→18:27)
[2022-03-03] MEDS: HYDROcodone-ACET 5/325MG TAB PO PRN (10:00)
[2022-03-03] MEDS: ASCORBIC ACID 500 MG TAB PO SCH (10:01)
[2022-03-03] MEDS: ZINC SULFATE 220mg CAP or TAB PO SCH (10:01)
[2022-03-03] MEDS: PANTOPRAZOLE 40 MG/10 ML VIAL INJ IV SCH ×2 (10:01→22:48)
[2022-03-03] MEDS: predniSONE 20 MG TAB PO SCH (10:01)
[2022-03-03] MEDS: CHOLECALCIFEROL (VITD3) 2,000 UNIT CAP/TAB PO SCH (10:01)
[2022-03-03] MEDS: APIXABAN 5 MG TAB PO SCH ×2 (10:01→22:47)
[2022-03-03] MEDS: CARVEDILOL 3.125 MG TAB PO SCH ×2 (10:15→22:47)
[2022-03-03] MEDS: INSULIN LANTUS (GLARGINE) 1 /0.01ml (100units/ml) SC SCH (10:38)
[2022-03-04] MEDS: HYDROcodone-ACET 5/325MG TAB PO PRN ×3 (03:32→23:42)
[2022-03-04 05:00] VITALS: BP 124/54
[2022-03-04] MEDS: SUCRALFATE 1 GM/10 ML ORAL SUSP PO SCH ×4 (06:38→22:26)
[2022-03-04] MEDS: ACCU-CHEK COMFORT CURVE STRIP VI SCH ×4 (06:38→22:21)
[2022-03-04] MEDS: InsuLIN REG 1unit/0.01ml Soln (100units/ml) SC SCH ×4 (06:40→22:25)
[2022-03-04 07:30] VITALS: BP 133/68
[2022-03-04] MEDS: Glucerna Carbsteady SHAKE Vanilla 8oz PO SCH ×3 (08:30→17:38)
[2022-03-04 09:00] VITALS: BP 133/68
[2022-03-04] MEDS: ASCORBIC ACID 500 MG TAB PO SCH (09:15)
[2022-03-04] MEDS: predniSONE 20 MG TAB PO SCH (09:15)
[2022-03-04] MEDS: ZINC SULFATE 220mg CAP or TAB PO SCH (09:16)
[2022-03-04] MEDS: CHOLECALCIFEROL (VITD3) 2,000 UNIT CAP/TAB PO SCH (09:16)
[2022-03-04] MEDS: PANTOPRAZOLE 40 MG/10 ML VIAL INJ IV SCH ×2 (09:16→22:26)
[2022-03-04] MEDS: APIXABAN 5 MG TAB PO SCH ×2 (09:16→22:26)
[2022-03-04] MEDS: CARVEDILOL 3.125 MG TAB PO SCH ×2 (09:18→22:26)
[2022-03-04] MEDS: INSULIN LANTUS (GLARGINE) 1 /0.01ml (100units/ml) SC SCH (09:55)
[2022-03-04 13:00] VITALS: BP 134/64
[2022-03-04 16:40] VITALS: BP 133/71
[2022-03-04 22:00] VITALS: BP 150/60
[2022-03-05] VITALS (7 sets, daily range): BP systolic 109–150; BP diastolic 48–67
[2022-03-05 05:06] LABS: Basophils # (auto) 0 10 ^3/uL (0-0.2); Basophils % (auto) 0.5 % (0.0-2.0); Eosinophils # (auto) 0 10 ^3/uL (0-0.8); Eosinophils % (auto) 0.1 % (0.0-7.0); Hematocrit 29.4 % (36.0-46.0); Lymphocytes # (auto) 1.1 10 ^3/uL (0.4-5.4); Lymphocytes % (auto) 19.4 % (10.0-50.0); Mean Corpuscular Hemoglobin 32.3 pg (28.0-32.0); Monocytes # (auto) 0.5 10 ^3/uL (0-1.3); Monocytes % (auto) 7.9 % (0.0-12.0); Neutrophils # (auto) 4.2 10 ^3/uL (1.6-8.6); Neutrophils % (auto) 72.1 % (37.0-80.0); Nucleated Red Blood Cells % 0.1 %; Red Cell Distribution Width 16.3 % (11.8-14.3); White Blood Cell 5.8 10^3/uL (4.4-10.8)
[2022-03-05 05:22] LABS: Potassium 4.2 mmol/L (3.5-5.1)
[2022-03-05 05:25] LABS: Albumin 2.5 g/dL (3.4-5.0); BUN/Creatinine Ratio 30.8; Calcium 8.6 mg/dL (8.5-10.1)
[2022-03-05 05:29] LABS: Bilirubin, Total 0.2 mg/dL (0.2-1.0)
[2022-03-05] MEDS: ACCU-CHEK COMFORT CURVE STRIP VI SCH ×5 (06:23→22:07)
[2022-03-05] MEDS: InsuLIN REG 1unit/0.01ml Soln (100units/ml) SC SCH ×4 (06:30→22:09)
[2022-03-05] MEDS: SUCRALFATE 1 GM/10 ML ORAL SUSP PO SCH ×4 (06:31→22:02)
[2022-03-05] MEDS: Glucerna Carbsteady SHAKE Vanilla 8oz PO SCH ×3 (08:00→17:55)
[2022-03-05] MEDS: HYDROcodone-ACET 5/325MG TAB PO PRN (10:58)
[2022-03-05] MEDS: APIXABAN 5 MG TAB PO SCH ×2 (10:58→22:02)
[2022-03-05] MEDS: ASCORBIC ACID 500 MG TAB PO SCH (10:59)
[2022-03-05] MEDS: PANTOPRAZOLE 40 MG/10 ML VIAL INJ IV SCH ×2 (10:59→22:01)
[2022-03-05] MEDS: predniSONE 20 MG TAB PO SCH (11:00)
[2022-03-05] MEDS: ZINC SULFATE 220mg CAP or TAB PO SCH (11:01)
[2022-03-05] MEDS: CHOLECALCIFEROL (VITD3) 2,000 UNIT CAP/TAB PO SCH (11:02)
[2022-03-05] MEDS: CARVEDILOL 3.125 MG TAB PO SCH ×2 (11:04→22:03)
[2022-03-05] MEDS: INSULIN LANTUS (GLARGINE) 1 /0.01ml (100units/ml) SC SCH (11:04)
[2022-03-05] MEDS ORDERED: DEXTROSE (50%) 50ML SYRG IV PRN (12:45)
[2022-03-05] MEDS: hydrALAZINE HCL 20 MG/ML VL IV PRN (23:20)
[2022-03-06 05:00] VITALS: BP 121/55
[2022-03-06] MEDS: ACCU-CHEK COMFORT CURVE STRIP VI SCH ×4 (06:20→21:56)
[2022-03-06] MEDS: InsuLIN REG 1unit/0.01ml Soln (100units/ml) SC SCH ×4 (06:22→21:58)
[2022-03-06] MEDS: SUCRALFATE 1 GM/10 ML ORAL SUSP PO SCH ×4 (06:22→21:54)
[2022-03-06 09:00] VITALS: BP 136/56
[2022-03-06] MEDS: PANTOPRAZOLE 40 MG/10 ML VIAL INJ IV SCH (09:33)
[2022-03-06] MEDS: ZINC SULFATE 220mg CAP or TAB PO SCH (09:33)
[2022-03-06] MEDS: ASCORBIC ACID 500 MG TAB PO SCH (09:33)
[2022-03-06] MEDS: CARVEDILOL 3.125 MG TAB PO SCH ×2 (09:34→21:55)
[2022-03-06] MEDS: APIXABAN 5 MG TAB PO SCH ×2 (09:34→21:48)
[2022-03-06] MEDS: CHOLECALCIFEROL (VITD3) 2,000 UNIT CAP/TAB PO SCH (09:34)
[2022-03-06] MEDS: HYDROcodone-ACET 5/325MG TAB PO PRN ×2 (09:42→18:41)
[2022-03-06] MEDS: INSULIN LANTUS (GLARGINE) 1 /0.01ml (100units/ml) SC SCH ×2 (11:59→21:59)
[2022-03-06 13:00] VITALS: BP 142/66
[2022-03-06] MEDS: ALUM & MAG HYDROX-SIMETH LIQ(MAALOX) 30 ML PO PRN (16:21)
[2022-03-06 17:00] VITALS: BP 142/61
[2022-03-06 20:00] VITALS: BP 134/60
[2022-03-06] MEDS: PANTOPRAZOLE 40 MG TAB PO SCH (21:48)
[2022-03-06 22:00] VITALS: BP 116/60
[2022-03-07] MEDS: SUCRALFATE 1 GM/10 ML ORAL SUSP PO SCH ×4 (06:15→22:33)
[2022-03-07] MEDS: ACCU-CHEK COMFORT CURVE STRIP VI SCH ×4 (06:32→22:00)
[2022-03-07] MEDS: InsuLIN REG 1unit/0.01ml Soln (100units/ml) SC SCH ×4 (06:33→22:00)
[2022-03-07 09:00] VITALS: BP 153/66
[2022-03-07] MEDS: HYDROcodone-ACET 5/325MG TAB PO PRN (10:59)
[2022-03-07] MEDS: CARVEDILOL 3.125 MG TAB PO SCH (11:00)
[2022-03-07] MEDS: CHOLECALCIFEROL (VITD3) 2,000 UNIT CAP/TAB PO SCH (11:00)
[2022-03-07] MEDS: ASCORBIC ACID 500 MG TAB PO SCH (11:00)
[2022-03-07] MEDS: APIXABAN 5 MG TAB PO SCH ×2 (11:01→22:37)
[2022-03-07] MEDS: ZINC SULFATE 220mg CAP or TAB PO SCH (11:01)
[2022-03-07] MEDS: PANTOPRAZOLE 40 MG TAB PO SCH ×2 (11:01→22:37)
[2022-03-07] MEDS: INSULIN LANTUS (GLARGINE) 1 /0.01ml (100units/ml) SC SCH ×2 (11:10→22:00)
[2022-03-07 13:00] VITALS: BP 144/64
[2022-03-07 17:00] VITALS: BP 94/51
[2022-03-07 20:00] VITALS: BP 153/66
[2022-03-07 21:55] VITALS: BP 132/60
[2022-03-07] MEDS: CARVEDILOL 12.5 MG TAB PO SCH (22:36)
[2022-03-08] MEDS: HYDROcodone-ACET 5/325MG TAB PO PRN ×2 (01:56→13:00)
[2022-03-08 04:48] VITALS: BP 133/59
[2022-03-08] MEDS: ACCU-CHEK COMFORT CURVE STRIP VI SCH ×4 (07:00→21:48)
[2022-03-08] MEDS: InsuLIN REG 1unit/0.01ml Soln (100units/ml) SC SCH ×4 (07:00→21:47)
[2022-03-08] MEDS: SUCRALFATE 1 GM/10 ML ORAL SUSP PO SCH ×4 (07:45→21:40)
[2022-03-08 08:00] VITALS: BP 126/53
[2022-03-08] MEDS: ZINC SULFATE 220mg CAP or TAB PO SCH (11:50)
[2022-03-08] MEDS: CARVEDILOL 12.5 MG TAB PO SCH ×2 (11:52→21:42)
[2022-03-08] MEDS: APIXABAN 5 MG TAB PO SCH ×2 (11:53→21:42)
[2022-03-08] MEDS: CHOLECALCIFEROL (VITD3) 2,000 UNIT CAP/TAB PO SCH (11:53)
[2022-03-08] MEDS: ASCORBIC ACID 500 MG TAB PO SCH (11:53)
[2022-03-08] MEDS: PANTOPRAZOLE 40 MG TAB PO SCH ×2 (11:53→21:40)
[2022-03-08] MEDS: INSULIN LANTUS (GLARGINE) 1 /0.01ml (100units/ml) SC SCH (11:54)
[2022-03-08 12:00] VITALS: BP 177/64
[2022-03-08 16:00] VITALS: BP 147/54
[2022-03-08 22:00] VITALS: BP 106/59
[2022-03-08] MEDS ORDERED: INSULIN LANTUS (GLARGINE) 1 /0.01ml (100units/ml) SC SCH (22:00)
[2022-03-09 05:00] VITALS: BP 135/61
[2022-03-09] MEDS: SUCRALFATE 1 GM/10 ML ORAL SUSP PO SCH ×3 (06:16→18:02)
[2022-03-09] MEDS: InsuLIN REG 1unit/0.01ml Soln (100units/ml) SC SCH ×3 (06:19→18:02)
[2022-03-09] MEDS: ACCU-CHEK COMFORT CURVE STRIP VI SCH ×3 (06:20→18:02)
[2022-03-09 08:42] VITALS: BP 124/58
[2022-03-09] MEDS ORDERED: INSULIN LANTUS (GLARGINE) 1 /0.01ml (100units/ml) SC SCH (10:00)
[2022-03-09] MEDS: APIXABAN 5 MG TAB PO SCH (10:11)
[2022-03-09] MEDS: ASCORBIC ACID 500 MG TAB PO SCH (10:11)
[2022-03-09] MEDS: PANTOPRAZOLE 40 MG TAB PO SCH (10:14)
[2022-03-09] MEDS: ZINC SULFATE 220mg CAP or TAB PO SCH (10:14)
[2022-03-09] MEDS: CHOLECALCIFEROL (VITD3) 2,000 UNIT CAP/TAB PO SCH (10:14)
[2022-03-09] MEDS: CARVEDILOL 12.5 MG TAB PO SCH (10:14)
[2022-03-09] MEDS: HYDROcodone-ACET 5/325MG TAB PO PRN (10:15)
[2022-03-09 13:00] VITALS: BP 145/67
[2022-03-09 17:15] VITALS: BP 108/50
[2022-03-09] MEDS ORDERED: SUCR1SUS10 PO (17:38)
[2022-03-09] MEDS ORDERED: APIX5TAB PO (17:38)
[2022-03-09] MEDS ORDERED: PANT40T PO (17:38)
[2022-03-09] MEDS ORDERED: CAR125T PO (17:38)
[2022-03-09 18:39] VITALS: BP 145/67
== END 2022-03-09 20:25 | disposition home health service (06) | DRG 871 ==
LOC: EDBD 19:53 → ER 19:53 → TELE 23:06 → TELE-WESTW 02-12 16:00
PROVIDERS: ADMIT Internal Medicine; ATTEND Nurse Practitioner
PROC: XW033E5 Introduction of Remdesivir Anti-infective into Peripheral Vein, Percutaneous Approach, New Technology Group 5 (ICD-10-PCS; principal; 2022-02-12)
PROC: 02HV33Z Insertion of Infusion Device into Superior Vena Cava, Percutaneous Approach (ICD-10-PCS; 2022-02-12)
DX: A41.89 Other specified sepsis (principal); E11.10 Type 2 diabetes mellitus with ketoacidosis without coma; E43 Unspecified severe protein-calorie malnutrition; R65.21 Severe sepsis with septic shock; U07.1 COVID-19; J12.82 Pneumonia due to coronavirus disease 2019; J96.01 Acute respiratory failure with hypoxia; G93.41 Metabolic encephalopathy; J98.11 Atelectasis; N17.9 Acute kidney failure, unspecified; I47.1 Supraventricular tachycardia; I82.432 Acute embolism and thrombosis of left popliteal vein; E11.65 Type 2 diabetes mellitus with hyperglycemia; F17.210 Nicotine dependence, cigarettes, uncomplicated; D64.9 Anemia, unspecified; E87.6 Hypokalemia; R13.10 Dysphagia, unspecified; I10 Essential (primary) hypertension; I25.10 Atherosclerotic heart disease of native coronary artery without angina pectoris; K21.9 Gastro-esophageal reflux disease without esophagitis; Z85.038 Personal history of other malignant neoplasm of large intestine; Z68.25 Body mass index [BMI] 25.0-25.9, adult; Z79.4 Long term (current) use of insulin; Z88.5 Allergy status to narcotic agent; Z88.8 Allergy status to other drugs, medicaments and biological substances
CPT/HCPCS: 36415; 36600; 70450; 71045; 71275; 80048; 80053; 81001; 82010; 82805; 82962; 83605; 83735; 84100; 84484; 85007; 85025; 85027; 85379; 86141; 87040; 87081; 92610; 93005; 93306; 93970; 94640; 96361; 96365; 96366; 96368; 97110; 97116; 97163; 97530; 99291; C9113; G0378; J0696; J1815; J2405; J2543; J3480

== ENCOUNTER 2022-09-22 16:28 | Inpatient (IN) | payer MEDICARE, OTHER ==
[~2022-09-22] VITALS: Ht 149.9 cm; Wt 56.8 kg
[~2022-09-22 16:28] MED LIST changes: +APIX5TAB PO; +CAR125T PO; +PANT40T PO; +SUCR1SUS10 PO
[2022-09-22 18:28] LABS: Albumin 2.9 g/dL (3.4-5.0); BUN/Creatinine Ratio 18.6; Calcium 9.5 mg/dL (8.5-10.1); Potassium 4.8 mmol/L (3.5-5.1)
[2022-09-22 18:30] LABS: Bilirubin, Total 0.6 mg/dL (0.2-1.0); Total Protein 7.5 g/dL (6.4-8.2)
[2022-09-22 19:39] LABS: Basophils # (auto) 0.1 10 ^3/uL (0-0.2); Basophils % (auto) 0.4 % (0.0-2.0); Eosinophils # (auto) 0 10 ^3/uL (0-0.8); Hematocrit 40.1 % (36.0-46.0); Hemoglobin 13.1 g/dL (12.2-16.2); Lymphocytes # (auto) 0.7 10 ^3/uL (0.4-5.4); Lymphocytes % (auto) 4.2 % (10.0-50.0); Mean Corpuscular Hemoglobin 28.4 pg (28.0-32.0); Mean Corpuscular Hgb Conc. 32.7 g/dL (32.0-36.0); Mean Corpuscular Volume 86.8 fL (80.0-100.0); Monocytes # (auto) 0.5 10 ^3/uL (0-1.3); Monocytes % (auto) 3.1 % (0.0-12.0); Neutrophils # (auto) 14.7 10 ^3/uL (1.6-8.6); Neutrophils % (auto) 92.3 % (37.0-80.0); Red Blood Cells 4.62 10^6/uL (4.0-5.20)
[2022-09-22] MEDS ORDERED: INSULIN LANTUS (GLARGINE) 1 /0.01ml (100units/ml) SC ONE (21:00)
[2022-09-22] MEDS ORDERED: DEXTROSE (50%) 50ML SYRG IV PRN (21:00)
[2022-09-22] MEDS: ACCU-CHEK COMFORT CURVE STRIP VI SCH (22:30)
[2022-09-22] MEDS: SODIUM CHLORIDE 0.9% 1,000 ML IV SCH (23:00)
[2022-09-23] VITALS (8 sets, daily range): BP systolic 108–129; BP diastolic 49–71
[2022-09-23] MEDS ORDERED: SODIUM CHLORIDE 0.9% 1,000 ML IV SCH (01:00)
[2022-09-23] MEDS: ACCU-CHEK COMFORT CURVE STRIP VI SCH ×17 (01:30→22:54)
[2022-09-23] MEDS: SODIUM CHLORIDE 0.9% 1,000 ML IV SCH ×4 (03:00→16:27)
[2022-09-23] MEDS ORDERED: ROCURONIUM 10MG/ML 10ML VIAL IV ONE ×2 (05:13→05:30)
[2022-09-23] MEDS ORDERED: ETOMIDATE (2MG/ML) 20ML VIAL IV ONE ×2 (05:14→05:30)
[2022-09-23] MEDS ORDERED: MIDAZOLAM DRIP 50 mg/50mL 50 ML IV ONE (05:18)
[2022-09-23] MEDS ORDERED: InsuLIN REG 1unit/0.01ml Soln (100units/ml) ONE (05:34)
[2022-09-23] MEDS: MIDAZOLAM DRIP 50 mg/50mL 50 ML IV SCH (05:35)
[2022-09-23] MEDS: InsuLIN R (HUMAN) 100 UNITS in SODIUM CHL 0.9% 99 ML IV SCH ×3 (05:40→21:31)
[2022-09-23] MEDS ORDERED: PIPERACILLIN-TAZOB 3.375GM 100 ML IV SCH (06:00)
[2022-09-23] MEDS ORDERED: MORPHINE SULFATE 4 MG/ML SYR/VIAL IV PRN (06:00)
[2022-09-23] MEDS: SODIUM CHLORIDE 0.9% 250 ML IV SCH ×7 (06:15→07:45)
[2022-09-23 07:28] LABS: Urine Bacteria NONE SEEN /hpf (None Seen); Urine Blood TRACE /uL (Negative); Urine Specific Gravity 1.017 (1.001-1.035); Urine WBC 27 /hpf (0 - 5)
[2022-09-23 07:50] LABS: Hematocrit 41.4 % (36.0-46.0); Hemoglobin 11.9 g/dL (12.2-16.2); Mean Corpuscular Hemoglobin 28.2 pg (28.0-32.0); Mean Corpuscular Hgb Conc. 28.8 g/dL (32.0-36.0); Red Blood Cells 4.22 10^6/uL (4.0-5.20); Red Cell Distribution Width 15.1 % (11.8-14.3)
[2022-09-23 08:02] LABS: White Blood Cell 35.9 10^3/uL (4.4-10.8)
[2022-09-23 08:03] LABS: Basophils % (manual) 0 (0.0-2.0); Blast Cells 0; Calcium 7.9 mg/dL (8.5-10.1); Potassium 4.8 mmol/L (3.5-5.1); Promyelocytes % 0
[2022-09-23 08:06] LABS: Bilirubin, Total 0.6 mg/dL (0.2-1.0)
[2022-09-23 08:11] LABS: BUN/Creatinine Ratio 17.9
[2022-09-23 08:53] LABS: Band Neutrophils % (manual) 8; Eosinophils % (manual) 3 (0-7); Lymphocytes % (manual) 5 (10.0-50.0); Metamyelocytes % 6; Monocytes % (manual) 9 (0-12); Myelocytes % 4; Reactive Lymphocytes 1
[2022-09-23] MEDS: PIPERACILLIN-TAZOB 2.25GM 50 ML IV SCH ×3 (08:56→22:26)
[2022-09-23] MEDS ORDERED: INSULIN LANTUS (GLARGINE) 1 /0.01ml (100units/ml) SC SCH (10:00)
[2022-09-23] MEDS ORDERED: SODIUM BICARBONATE 8.4 % INJ 50ML VIAL IV ONE (11:45)
[2022-09-23] MEDS: PROPOFOL 100 ML IV SCH (12:00)
[2022-09-23] MEDS: fentaNYL Drip 2500mCg/250mlNS 250 ML IV SCH (12:29)
[2022-09-23] MEDS ORDERED: InsuLIN REG 1unit/0.01ml Soln (100units/ml) IV ONE (12:45)
[2022-09-23 14:40] LABS: Calcium 7.2 mg/dL (8.5-10.1); Potassium 3.4 mmol/L (3.5-5.1)
[2022-09-23] MEDS: D5W/SOD CHL 0.45%/KCL 20MEQ 1,000 ML IV PRN (19:50)
[2022-09-23 21:25] LABS: Basophils # (auto) 0 10 ^3/uL (0-0.2); Basophils % (auto) 0.1 % (0.0-2.0); Eosinophils # (auto) 0 10 ^3/uL (0-0.8); Hematocrit 28.3 % (36.0-46.0); Hemoglobin 9.8 g/dL (12.2-16.2); Lymphocytes % (auto) 7.2 % (10.0-50.0); Mean Corpuscular Hemoglobin 28.9 pg (28.0-32.0); Mean Corpuscular Hgb Conc. 34.6 g/dL (32.0-36.0); Mean Corpuscular Volume 83.5 fL (80.0-100.0); Monocytes # (auto) 1.1 10 ^3/uL (0-1.3); Neutrophils % (auto) 84.7 % (37.0-80.0); Nucleated Red Blood Cells % 0.1 %; Red Blood Cells 3.39 10^6/uL (4.0-5.20); Red Cell Distribution Width 13.6 % (11.8-14.3); White Blood Cell 14.2 10^3/uL (4.4-10.8)
[2022-09-23 21:52] LABS: Albumin 2.1 g/dL (3.4-5.0); BUN/Creatinine Ratio 20.8; Calcium 7.3 mg/dL (8.5-10.1)
[2022-09-23 21:55] LABS: Bilirubin, Total 0.4 mg/dL (0.2-1.0); Total Protein 5.4 g/dL (6.4-8.2)
[2022-09-23] MEDS ORDERED: HEPARIN SODIUM (PORCINE) 5000 UNITS/ML 1ML VIAL SC SCH (22:00)
[2022-09-23 22:14] LABS: Potassium 2.9 mmol/L (3.5-5.1)
[2022-09-24] VITALS (12 sets, daily range): BP systolic 106–169; BP diastolic 53–68
[2022-09-24] MEDS: ACCU-CHEK COMFORT CURVE STRIP VI SCH ×9 (00:03→20:21)
[2022-09-24] MEDS: SODIUM CHLORIDE 0.9% 1,000 ML IV SCH ×2 (00:53→05:40)
[2022-09-24] MEDS: D5W/SOD CHL 0.45%/KCL 20MEQ 1,000 ML IV PRN (02:54)
[2022-09-24 03:28] LABS: Albumin 2.1 g/dL (3.4-5.0); BUN/Creatinine Ratio 21.3; Calcium 7.5 mg/dL (8.5-10.1); Potassium 3.2 mmol/L (3.5-5.1)
[2022-09-24 03:31] LABS: Bilirubin, Total 0.3 mg/dL (0.2-1.0); Total Protein 5.5 g/dL (6.4-8.2)
[2022-09-24] MEDS: MIDAZOLAM DRIP 50 mg/50mL 50 ML IV SCH (04:11)
[2022-09-24 04:20] LABS: INR 1.07 (0.9-1.15); Partial Thromboplastin Time 25.5 sec (24.6-33.4)
[2022-09-24] MEDS: PIPERACILLIN-TAZOB 2.25GM 50 ML IV SCH ×3 (05:31→23:59)
[2022-09-24] MEDS ORDERED: DEXTROSE (50%) 50ML SYRG IV PRN (06:45)
[2022-09-24] MEDS: InsuLIN REG 1unit/0.01ml Soln (100units/ml) SC SCH ×4 (08:28→20:24)
[2022-09-24] MEDS: PANTOPRAZOLE 40 MG/10 ML VIAL INJ IV SCH (09:32)
[2022-09-24] MEDS: PROPOFOL 100 ML IV SCH (12:00)
[2022-09-24] MEDS: fentaNYL Drip 2500mCg/250mlNS 250 ML IV SCH (12:00)
[2022-09-24] MEDS ORDERED: D5W/SOD CHLO 0.9% 1,000 ML IV ONE (12:45)
[2022-09-24] MEDS: ACETAMINOPHEN 650 MG RECT SUPP PR PRN (15:39)
[2022-09-24] MEDS: D5W/SOD CHLO 0.9% 1,000 ML IV SCH (20:45)
[2022-09-25] VITALS (7 sets, daily range): BP systolic 152–188; BP diastolic 68–75
[2022-09-25] MEDS: InsuLIN REG 1unit/0.01ml Soln (100units/ml) SC SCH ×6 (00:30→20:27)
[2022-09-25] MEDS: ACETAMINOPHEN 650 MG RECT SUPP PR PRN ×2 (01:43→19:25)
[2022-09-25] MEDS: ACCU-CHEK COMFORT CURVE STRIP VI SCH ×6 (04:00→20:16)
[2022-09-25] MEDS: MIDAZOLAM DRIP 50 mg/50mL 50 ML IV SCH (05:30)
[2022-09-25] MEDS: PIPERACILLIN-TAZOB 2.25GM 50 ML IV SCH ×3 (05:51→20:26)
[2022-09-25 06:00] LABS: Basophils # (auto) 0 10 ^3/uL (0-0.2); Basophils % (auto) 0.2 % (0.0-2.0); Eosinophils # (auto) 0 10 ^3/uL (0-0.8); Hematocrit 31.2 % (36.0-46.0); Hemoglobin 10.6 g/dL (12.2-16.2); Lymphocytes # (auto) 0.6 10 ^3/uL (0.4-5.4); Lymphocytes % (auto) 5.8 % (10.0-50.0); Mean Corpuscular Hemoglobin 28.6 pg (28.0-32.0); Mean Corpuscular Hgb Conc. 33.9 g/dL (32.0-36.0); Mean Corpuscular Volume 84.4 fL (80.0-100.0); Monocytes # (auto) 0.6 10 ^3/uL (0-1.3); Monocytes % (auto) 5.4 % (0.0-12.0); Neutrophils # (auto) 9.7 10 ^3/uL (1.6-8.6); Neutrophils % (auto) 88.6 % (37.0-80.0); Red Cell Distribution Width 13.9 % (11.8-14.3); White Blood Cell 10.9 10^3/uL (4.4-10.8)
[2022-09-25 06:17] LABS: Magnesium 1.6 mg/dL (1.6-2.6)
[2022-09-25 06:24] LABS: Albumin 1.9 g/dL (3.4-5.0); BUN/Creatinine Ratio 18.2; Bilirubin, Total 0.4 mg/dL (0.2-1.0); Phosphorus 1.9 mg/dL (2.5-4.90); Total Protein 5.3 g/dL (6.4-8.2)
[2022-09-25 06:26] LABS: Potassium 2.8 mmol/L (3.5-5.1)
[2022-09-25] MEDS: D5W/SOD CHLO 0.9% 1,000 ML IV SCH ×4 (06:45→23:25)
[2022-09-25] MEDS: ENOXAPARIN SOD 30 MG/0.3 ML SYRINGE SC SCH (11:08)
[2022-09-25] MEDS: PANTOPRAZOLE 40 MG/10 ML VIAL INJ IV SCH (11:08)
[2022-09-25] MEDS: fentaNYL Drip 2500mCg/250mlNS 250 ML IV SCH (12:00)
[2022-09-25] MEDS: PROPOFOL 100 ML IV SCH (12:00)
[2022-09-25] MEDS: AZITHROMYCIN 500MG/ 250ML 250 ML IV SCH (12:44)
[2022-09-25] MEDS ORDERED: FUROSEMIDE 20 MG/2 ML VIAL IV ONE (12:45)
[2022-09-25] MEDS: POTASSIUM PHOSPHATE 44 MEQ in D5W 5% 250 ML IV ONE (14:00)
[2022-09-25] MEDS: POTASSIUM CHL 20MEQ/100ML 100 ML IV SCH ×2 (15:57→18:02)
[2022-09-25] MEDS: hydrALAZINE HCL 20 MG/ML VL IV PRN (19:09)
[2022-09-26] MEDS: ACCU-CHEK COMFORT CURVE STRIP VI SCH ×7 (00:23→23:59)
[2022-09-26] MEDS: InsuLIN REG 1unit/0.01ml Soln (100units/ml) SC SCH ×7 (00:23→23:57)
[2022-09-26] MEDS: PIPERACILLIN-TAZOB 2.25GM 50 ML IV SCH ×3 (01:44→13:32)
[2022-09-26] MEDS: MIDAZOLAM DRIP 50 mg/50mL 50 ML IV SCH (05:30)
[2022-09-26] MEDS: D5W/SOD CHLO 0.9% 1,000 ML IV SCH ×3 (06:05→19:25)
[2022-09-26 07:12] LABS: Potassium 3.2 mmol/L (3.5-5.1)
[2022-09-26 07:24] LABS: Calcium 7.5 mg/dL (8.5-10.1)
[2022-09-26] MEDS: AZITHROMYCIN 500MG/ 250ML 250 ML IV SCH (09:44)
[2022-09-26] MEDS: PANTOPRAZOLE 40 MG/10 ML VIAL INJ IV SCH (09:44)
[2022-09-26] MEDS ORDERED: POTASSIUM CHL 20MEQ/100ML 100 ML IV ONE (10:00)
[2022-09-26] MEDS: ENOXAPARIN SOD 30 MG/0.3 ML SYRINGE SC SCH (11:20)
[2022-09-26 12:00] VITALS: BP 132/61
[2022-09-26 12:42] VITALS: BP 132/61
[2022-09-26] MEDS: PROPOFOL 100 ML IV SCH (13:23)
[2022-09-26] MEDS: fentaNYL Drip 2500mCg/250mlNS 250 ML IV SCH (13:23)
[2022-09-26] MEDS: cefTRIAXone 1GM/50ML D5W 50 ML IV SCH (15:43)
[2022-09-26 16:00] VITALS: BP 153/68
[2022-09-26 22:00] VITALS: BP 139/64
[2022-09-27] MEDS: D5W/SOD CHLO 0.9% 1,000 ML IV SCH ×2 (02:05→07:42)
[2022-09-27] MEDS: ACCU-CHEK COMFORT CURVE STRIP VI SCH ×6 (04:00→23:51)
[2022-09-27] MEDS: InsuLIN REG 1unit/0.01ml Soln (100units/ml) SC SCH ×6 (04:48→23:51)
[2022-09-27] MEDS: ACETAMINOPHEN 325 MG TAB PO PRN ×2 (04:50→17:17)
[2022-09-27 05:00] VITALS: BP 155/68
[2022-09-27] MEDS: fentaNYL Drip 2500mCg/250mlNS 250 ML IV SCH (07:52)
[2022-09-27] MEDS: PROPOFOL 100 ML IV SCH (07:52)
[2022-09-27] MEDS: MIDAZOLAM DRIP 50 mg/50mL 50 ML IV SCH (07:52)
[2022-09-27 08:00] VITALS: BP 153/69
[2022-09-27 09:00] VITALS: BP_SYST 153; BP_DIAS 69; BP_DIAS 96
[2022-09-27] MEDS: PANTOPRAZOLE 40 MG/10 ML VIAL INJ IV SCH (10:05)
[2022-09-27] MEDS: cefTRIAXone 1GM/50ML D5W 50 ML IV SCH (10:05)
[2022-09-27] MEDS: ENOXAPARIN SOD 40 MG/0.4 ML SYRINGE SC SCH (10:06)
[2022-09-27] MEDS: AZITHROMYCIN 500MG/ 250ML 250 ML IV SCH (10:47)
[2022-09-27] MEDS: ONDANSETRON HCL 4 MG/2 ML VIAL IV PRN ×3 (12:01→22:21)
[2022-09-27] MEDS ORDERED: INSULIN LANTUS (GLARGINE) 1 /0.01ml (100units/ml) SC ONE (12:15)
[2022-09-27 13:00] VITALS: BP 135/59
[2022-09-27] MEDS ORDERED: DEXTROSE (50%) 50ML SYRG IV PRN (13:00)
[2022-09-27] MEDS: SODIUM CHLORIDE 0.9% 1,000 ML IV SCH ×2 (13:00→23:52)
[2022-09-27 17:00] VITALS: BP 133/76
[2022-09-27 22:00] VITALS: BP 135/65
[2022-09-28] VITALS (7 sets, daily range): BP systolic 138–171; BP diastolic 57–77
[2022-09-28] MEDS: ONDANSETRON HCL 4 MG/2 ML VIAL IV PRN ×3 (02:35→11:48)
[2022-09-28] MEDS: InsuLIN REG 1unit/0.01ml Soln (100units/ml) SC SCH ×5 (04:00→20:00)
[2022-09-28] MEDS: ACETAMINOPHEN 325 MG TAB PO PRN ×2 (04:05→15:52)
[2022-09-28] MEDS: ACCU-CHEK COMFORT CURVE STRIP VI SCH ×5 (04:12→20:00)
[2022-09-28 05:56] LABS: Basophils # (auto) 0 10 ^3/uL (0-0.2); Basophils % (auto) 0.1 % (0.0-2.0); Eosinophils # (auto) 0.2 10 ^3/uL (0-0.8); Eosinophils % (auto) 1.8 % (0.0-7.0); Hematocrit 30.4 % (36.0-46.0); Hemoglobin 10.2 g/dL (12.2-16.2); Lymphocytes # (auto) 0.8 10 ^3/uL (0.4-5.4); Lymphocytes % (auto) 8.6 % (10.0-50.0); Mean Corpuscular Hemoglobin 28.2 pg (28.0-32.0); Mean Corpuscular Hgb Conc. 33.4 g/dL (32.0-36.0); Mean Corpuscular Volume 84.4 fL (80.0-100.0); Monocytes % (auto) 10.5 % (0.0-12.0); Neutrophils # (auto) 7.7 10 ^3/uL (1.6-8.6); Nucleated Red Blood Cells % 0.1 %; Red Cell Distribution Width 13.9 % (11.8-14.3); White Blood Cell 9.7 10^3/uL (4.4-10.8)
[2022-09-28 06:19] LABS: Potassium 3.2 mmol/L (3.5-5.1)
[2022-09-28 06:24] LABS: BUN/Creatinine Ratio 15.6; Calcium 7.4 mg/dL (8.5-10.1); Magnesium 1.4 mg/dL (1.6-2.6); Phosphorus 2.1 mg/dL (2.5-4.90)
[2022-09-28] MEDS: cefTRIAXone 1GM/50ML D5W 50 ML IV SCH (09:26)
[2022-09-28] MEDS: INSULIN LANTUS (GLARGINE) 1 /0.01ml (100units/ml) SC SCH (09:30)
[2022-09-28] MEDS: PANTOPRAZOLE 40 MG/10 ML VIAL INJ IV SCH (09:42)
[2022-09-28] MEDS: ENOXAPARIN SOD 40 MG/0.4 ML SYRINGE SC SCH (09:42)
[2022-09-28] MEDS: AZITHROMYCIN 500MG/ 250ML 250 ML IV SCH (11:40)
[2022-09-28] MEDS ORDERED: POTASSIUM CHL 20 Meq TABLET PO ONE (15:00)
[2022-09-28] MEDS ORDERED: MAGNESIUM SULFATE 100 ML IV ONE (15:15)
[2022-09-28] MEDS: SODIUM CHLORIDE 0.9% 1,000 ML IV SCH (15:40)
[2022-09-29] VITALS (7 sets, daily range): BP systolic 143–160; BP diastolic 50–78
[2022-09-29] MEDS: ACETAMINOPHEN 325 MG TAB PO PRN (02:50)
[2022-09-29] MEDS: SODIUM CHLORIDE 0.9% 1,000 ML IV SCH ×2 (03:15→16:49)
[2022-09-29] MEDS: ACCU-CHEK COMFORT CURVE STRIP VI SCH ×7 (04:00→23:38)
[2022-09-29] MEDS: InsuLIN REG 1unit/0.01ml Soln (100units/ml) SC SCH ×7 (04:00→23:38)
[2022-09-29] MEDS: cefTRIAXone 1GM/50ML D5W 50 ML IV SCH (08:40)
[2022-09-29] MEDS: ONDANSETRON HCL 4 MG/2 ML VIAL IV PRN (11:37)
[2022-09-29] MEDS: PANTOPRAZOLE 40 MG/10 ML VIAL INJ IV SCH (11:37)
[2022-09-29] MEDS: AZITHROMYCIN 500MG/ 250ML 250 ML IV SCH (11:37)
[2022-09-29] MEDS: ENOXAPARIN SOD 40 MG/0.4 ML SYRINGE SC SCH (11:37)
[2022-09-29] MEDS: INSULIN LANTUS (GLARGINE) 1 /0.01ml (100units/ml) SC SCH (11:50)
[2022-09-30] MEDS: ACETAMINOPHEN 325 MG TAB PO PRN ×2 (03:19→17:58)
[2022-09-30] MEDS: ONDANSETRON HCL 4 MG/2 ML VIAL IV PRN ×2 (03:19→20:49)
[2022-09-30] MEDS: ACCU-CHEK COMFORT CURVE STRIP VI SCH ×5 (03:34→20:27)
[2022-09-30] MEDS: InsuLIN REG 1unit/0.01ml Soln (100units/ml) SC SCH ×5 (03:34→20:29)
[2022-09-30 05:00] VITALS: BP 141/68
[2022-09-30] MEDS: SODIUM CHLORIDE 0.9% 1,000 ML IV SCH ×2 (06:00→19:15)
[2022-09-30] MEDS: cefTRIAXone 1GM/50ML D5W 50 ML IV SCH (08:43)
[2022-09-30] MEDS: ENOXAPARIN SOD 40 MG/0.4 ML SYRINGE SC SCH (08:46)
[2022-09-30] MEDS: PANTOPRAZOLE 40 MG/10 ML VIAL INJ IV SCH (08:46)
[2022-09-30 09:00] VITALS: BP 155/68
[2022-09-30 10:30] LABS: Hematocrit 29.7 % (36.0-46.0); Hemoglobin 9.8 g/dL (12.2-16.2); Mean Corpuscular Hemoglobin 28.6 pg (28.0-32.0); Mean Corpuscular Volume 86.6 fL (80.0-100.0); Red Blood Cells 3.43 10^6/uL (4.0-5.20); Red Cell Distribution Width 14.1 % (11.8-14.3); White Blood Cell 9.7 10^3/uL (4.4-10.8)
[2022-09-30] MEDS: AZITHROMYCIN 500MG/ 250ML 250 ML IV SCH (10:37)
[2022-09-30 10:42] LABS: Basophils % (manual) 0 (0.0-2.0); Blast Cells 0; Metamyelocytes % 0; Myelocytes % 0; Promyelocytes % 0
[2022-09-30] MEDS: INSULIN LANTUS (GLARGINE) 1 /0.01ml (100units/ml) SC SCH (10:42)
[2022-09-30 10:52] LABS: BUN/Creatinine Ratio 10.7; Calcium 7.7 mg/dL (8.5-10.1); Magnesium 2.2 mg/dL (1.6-2.6); Phosphorus 2.5 mg/dL (2.5-4.90)
[2022-09-30 13:00] VITALS: BP 158/74
[2022-09-30 14:35] LABS: Band Neutrophils % (manual) 6; Eosinophils % (manual) 3 (0-7); Lymphocytes % (manual) 6 (10.0-50.0); Monocytes % (manual) 16 (0-12); Reactive Lymphocytes 1
[2022-09-30 17:06] VITALS: BP 100/61
[2022-09-30 22:00] VITALS: BP 122/48
[2022-10-01] MEDS: ACCU-CHEK COMFORT CURVE STRIP VI SCH ×6 (00:19→21:01)
[2022-10-01] MEDS: ACETAMINOPHEN 325 MG TAB PO PRN ×2 (02:51→23:41)
[2022-10-01] MEDS: InsuLIN REG 1unit/0.01ml Soln (100units/ml) SC SCH ×6 (04:00→21:06)
[2022-10-01 05:00] VITALS: BP 147/49
[2022-10-01] MEDS: ONDANSETRON HCL 4 MG/2 ML VIAL IV PRN ×2 (07:15→15:38)
[2022-10-01 08:00] VITALS: BP 156/71
[2022-10-01] MEDS: cefTRIAXone 1GM/50ML D5W 50 ML IV SCH (09:48)
[2022-10-01] MEDS: SODIUM CHLORIDE 0.9% 1,000 ML IV SCH ×2 (09:48→22:09)
[2022-10-01] MEDS: PANTOPRAZOLE 40 MG/10 ML VIAL INJ IV SCH (09:48)
[2022-10-01] MEDS: ENOXAPARIN SOD 40 MG/0.4 ML SYRINGE SC SCH (09:48)
[2022-10-01] MEDS: INSULIN LANTUS (GLARGINE) 1 /0.01ml (100units/ml) SC SCH (10:06)
[2022-10-01] MEDS: AZITHROMYCIN 500MG/ 250ML 250 ML IV SCH (11:47)
[2022-10-01 12:00] VITALS: BP 144/69
[2022-10-01 16:00] VITALS: BP 154/75
[2022-10-01 22:00] VITALS: BP 140/55
[2022-10-02] MEDS: ACCU-CHEK COMFORT CURVE STRIP VI SCH ×6 (00:08→20:48)
[2022-10-02] MEDS: ONDANSETRON HCL 4 MG/2 ML VIAL IV PRN ×3 (02:07→21:05)
[2022-10-02] MEDS: InsuLIN REG 1unit/0.01ml Soln (100units/ml) SC SCH ×6 (04:00→20:49)
[2022-10-02 05:00] VITALS: BP 162/69
[2022-10-02] MEDS: ACETAMINOPHEN 325 MG TAB PO PRN ×2 (06:29→21:35)
[2022-10-02] MEDS: hydrALAZINE HCL 20 MG/ML VL IV PRN (06:34)
[2022-10-02] MEDS: Glucerna Carbsteady SHAKE Vanilla 8oz PO SCH ×3 (07:23→18:27)
[2022-10-02 08:21] LABS: Basophils # (auto) 0.1 10 ^3/uL (0-0.2); Basophils % (auto) 0.5 % (0.0-2.0); Eosinophils # (auto) 0.1 10 ^3/uL (0-0.8); Hematocrit 27.2 % (36.0-46.0); Hemoglobin 9.1 g/dL (12.2-16.2); Lymphocytes # (auto) 0.9 10 ^3/uL (0.4-5.4); Lymphocytes % (auto) 7.2 % (10.0-50.0); Mean Corpuscular Hemoglobin 28.4 pg (28.0-32.0); Mean Corpuscular Hgb Conc. 33.6 g/dL (32.0-36.0); Mean Corpuscular Volume 84.7 fL (80.0-100.0); Monocytes # (auto) 1.1 10 ^3/uL (0-1.3); Monocytes % (auto) 9.2 % (0.0-12.0); Neutrophils # (auto) 9.9 10 ^3/uL (1.6-8.6); Neutrophils % (auto) 82.1 % (37.0-80.0); Red Blood Cells 3.21 10^6/uL (4.0-5.20); Red Cell Distribution Width 13.9 % (11.8-14.3); White Blood Cell 12.1 10^3/uL (4.4-10.8)
[2022-10-02 08:36] LABS: Albumin 1.7 g/dL (3.4-5.0); Calcium 7.8 mg/dL (8.5-10.1); Potassium 4.1 mmol/L (3.5-5.1)
[2022-10-02 08:39] LABS: BUN/Creatinine Ratio 9.4; Bilirubin, Total 0.2 mg/dL (0.2-1.0); Total Protein 4.6 g/dL (6.4-8.2)
[2022-10-02] MEDS: cefTRIAXone 1GM/50ML D5W 50 ML IV SCH (09:03)
[2022-10-02] MEDS: PANTOPRAZOLE 40 MG/10 ML VIAL INJ IV SCH (09:04)
[2022-10-02] MEDS: ENOXAPARIN SOD 40 MG/0.4 ML SYRINGE SC SCH (09:04)
[2022-10-02] MEDS: INSULIN LANTUS (GLARGINE) 1 /0.01ml (100units/ml) SC SCH (09:16)
[2022-10-02] MEDS: AZITHROMYCIN 500MG/ 250ML 250 ML IV SCH (10:14)
[2022-10-02] MEDS: SODIUM CHLORIDE 0.9% 1,000 ML IV SCH (11:35)
[2022-10-02 13:10] VITALS: BP 152/66
[2022-10-02 17:11] VITALS: BP 152/71
[2022-10-02 22:00] VITALS: BP 158/62
[2022-10-03] VITALS (7 sets, daily range): BP systolic 132–159; BP diastolic 41–67
[2022-10-03] MEDS: SODIUM CHLORIDE 0.9% 1,000 ML IV SCH ×3 (00:44→18:52)
[2022-10-03] MEDS: ACCU-CHEK COMFORT CURVE STRIP VI SCH ×7 (00:44→23:25)
[2022-10-03] MEDS: InsuLIN REG 1unit/0.01ml Soln (100units/ml) SC SCH ×7 (04:15→23:27)
[2022-10-03] MEDS: ACETAMINOPHEN 325 MG TAB PO PRN ×2 (04:21→22:09)
[2022-10-03] MEDS: Glucerna Carbsteady SHAKE Vanilla 8oz PO SCH ×2 (08:00→18:30)
[2022-10-03] MEDS: ONDANSETRON HCL 4 MG/2 ML VIAL IV PRN (08:38)
[2022-10-03] MEDS: cefTRIAXone 1GM/50ML D5W 50 ML IV SCH (08:41)
[2022-10-03] MEDS: PANTOPRAZOLE 40 MG/10 ML VIAL INJ IV SCH (09:47)
[2022-10-03] MEDS: AZITHROMYCIN 500MG/ 250ML 250 ML IV SCH (09:47)
[2022-10-03] MEDS: ENOXAPARIN SOD 40 MG/0.4 ML SYRINGE SC SCH (09:47)
[2022-10-03] MEDS: INSULIN LANTUS (GLARGINE) 1 /0.01ml (100units/ml) SC SCH (09:58)
[2022-10-03] MEDS ORDERED: ONDANSETRON HCL 4 MG/2 ML VIAL IV ONE (11:45)
[2022-10-03 13:04] LABS: Basophils # (auto) 0.1 10 ^3/uL (0-0.2); Basophils % (auto) 0.4 % (0.0-2.0); Eosinophils # (auto) 0.1 10 ^3/uL (0-0.8); Eosinophils % (auto) 0.9 % (0.0-7.0); Hematocrit 27.7 % (36.0-46.0); Hemoglobin 9.3 g/dL (12.2-16.2); Lymphocytes # (auto) 0.9 10 ^3/uL (0.4-5.4); Lymphocytes % (auto) 6.3 % (10.0-50.0); Mean Corpuscular Hemoglobin 28.9 pg (28.0-32.0); Mean Corpuscular Hgb Conc. 33.7 g/dL (32.0-36.0); Mean Corpuscular Volume 85.8 fL (80.0-100.0); Monocytes % (auto) 7.3 % (0.0-12.0); Neutrophils # (auto) 11.7 10 ^3/uL (1.6-8.6); Neutrophils % (auto) 85.1 % (37.0-80.0); Red Blood Cells 3.22 10^6/uL (4.0-5.20); Red Cell Distribution Width 13.9 % (11.8-14.3); White Blood Cell 13.7 10^3/uL (4.4-10.8)
[2022-10-03 13:20] LABS: Albumin 1.7 g/dL (3.4-5.0); Calcium 7.9 mg/dL (8.5-10.1)
[2022-10-03 13:24] LABS: BUN/Creatinine Ratio 10.3; Bilirubin, Total 0.2 mg/dL (0.2-1.0); Total Protein 5.5 g/dL (6.4-8.2)
[2022-10-03] MEDS: PROMETHAZINE HCL 25 MG/ML 1ML IV PRN (16:13)
[2022-10-04] MEDS: InsuLIN REG 1unit/0.01ml Soln (100units/ml) SC SCH ×5 (04:00→19:59)
[2022-10-04] MEDS: ACCU-CHEK COMFORT CURVE STRIP VI SCH ×5 (04:14→19:59)
[2022-10-04 05:00] VITALS: BP 142/58
[2022-10-04] MEDS: PROMETHAZINE HCL 25 MG/ML 1ML IV PRN (05:25)
[2022-10-04] MEDS: Glucerna Carbsteady SHAKE Vanilla 8oz PO SCH ×2 (08:00→18:36)
[2022-10-04] MEDS: cefTRIAXone 1GM/50ML D5W 50 ML IV SCH (08:54)
[2022-10-04 09:00] VITALS: BP 167/75
[2022-10-04] MEDS: ACETAMINOPHEN 325 MG TAB PO PRN ×2 (09:39→21:37)
[2022-10-04] MEDS: INSULIN LANTUS (GLARGINE) 1 /0.01ml (100units/ml) SC SCH (10:00)
[2022-10-04] MEDS: ENOXAPARIN SOD 40 MG/0.4 ML SYRINGE SC SCH (11:07)
[2022-10-04] MEDS: AZITHROMYCIN 500MG/ 250ML 250 ML IV SCH (11:07)
[2022-10-04] MEDS: FAMOTIDINE 20 MG TAB PO SCH ×2 (11:08→21:37)
[2022-10-04] MEDS: PANTOPRAZOLE 40 MG/10 ML VIAL INJ IV SCH (11:08)
[2022-10-04 11:54] VITALS: BP 154/76
[2022-10-04 12:59] VITALS: BP 157/79
[2022-10-04] MEDS: ONDANSETRON HCL 4 MG/2 ML VIAL IV PRN (14:04)
[2022-10-04] MEDS: SODIUM CHLORIDE 0.9% 1,000 ML IV SCH (14:04)
[2022-10-04 17:00] VITALS: BP 147/59
[2022-10-04 22:00] VITALS: BP 157/69
[2022-10-05] MEDS: InsuLIN REG 1unit/0.01ml Soln (100units/ml) SC SCH ×6 (00:35→22:14)
[2022-10-05] MEDS: ACCU-CHEK COMFORT CURVE STRIP VI SCH ×6 (00:35→22:12)
[2022-10-05] MEDS: hydrALAZINE HCL 20 MG/ML VL IV PRN (04:32)
[2022-10-05 05:00] VITALS: BP 141/56
[2022-10-05 08:13] VITALS: BP 153/58
[2022-10-05] MEDS: SODIUM CHLORIDE 0.9% 1,000 ML IV SCH (09:15)
[2022-10-05] MEDS: ENOXAPARIN SOD 40 MG/0.4 ML SYRINGE SC SCH (10:10)
[2022-10-05] MEDS: PANTOPRAZOLE 40 MG/10 ML VIAL INJ IV SCH (10:10)
[2022-10-05] MEDS: ONDANSETRON HCL 4 MG/2 ML VIAL IV PRN ×2 (10:10→18:50)
[2022-10-05] MEDS: Glucerna Carbsteady SHAKE Vanilla 8oz PO SCH ×2 (10:10→17:28)
[2022-10-05] MEDS: FAMOTIDINE 20 MG TAB PO SCH ×2 (10:10→22:12)
[2022-10-05] MEDS: cefTRIAXone 1GM/50ML D5W 50 ML IV SCH (10:11)
[2022-10-05] MEDS: ACETAMINOPHEN 325 MG TAB PO PRN ×2 (10:31→18:50)
[2022-10-05] MEDS: INSULIN LANTUS (GLARGINE) 1 /0.01ml (100units/ml) SC SCH (10:33)
[2022-10-05] MEDS: AZITHROMYCIN 500MG/ 250ML 250 ML IV SCH (11:21)
[2022-10-05 12:55] VITALS: BP 132/48
[2022-10-05] MEDS ORDERED: DEXTROSE (50%) 50ML SYRG IV PRN (13:00)
[2022-10-05 16:58] VITALS: BP 147/46
[2022-10-05 22:00] VITALS: BP 137/51
[2022-10-06 05:00] VITALS: BP 166/62
[2022-10-06] MEDS: SODIUM CHLORIDE 0.9% 1,000 ML IV SCH (05:45)
[2022-10-06] MEDS: hydrALAZINE HCL 20 MG/ML VL IV PRN (05:46)
[2022-10-06] MEDS: ACCU-CHEK COMFORT CURVE STRIP VI SCH ×3 (06:17→17:00)
[2022-10-06] MEDS: ONDANSETRON HCL 4 MG/2 ML VIAL IV PRN (06:18)
[2022-10-06] MEDS: ACETAMINOPHEN 325 MG TAB PO PRN ×2 (06:18→15:03)
[2022-10-06] MEDS: InsuLIN REG 1unit/0.01ml Soln (100units/ml) SC SCH ×3 (06:30→17:00)
[2022-10-06 09:00] VITALS: BP 134/49
[2022-10-06] MEDS: cefTRIAXone 1GM/50ML D5W 50 ML IV SCH (10:32)
[2022-10-06] MEDS: PANTOPRAZOLE 40 MG/10 ML VIAL INJ IV SCH (10:32)
[2022-10-06] MEDS: FAMOTIDINE 20 MG TAB PO SCH (10:33)
[2022-10-06] MEDS: Glucerna Carbsteady SHAKE Vanilla 8oz PO SCH ×2 (10:38→18:00)
[2022-10-06] MEDS: ENOXAPARIN SOD 40 MG/0.4 ML SYRINGE SC SCH (10:38)
[2022-10-06] MEDS: INSULIN LANTUS (GLARGINE) 1 /0.01ml (100units/ml) SC SCH (10:48)
[2022-10-06] MEDS: AZITHROMYCIN 500MG/ 250ML 250 ML IV SCH (11:36)
[2022-10-06] MEDS ORDERED: LEVEMIR SC ×2 (11:58)
[2022-10-06] MEDS ORDERED: AMOX500T86 PO (11:58)
[2022-10-06 12:40] VITALS: BP 157/66
[2022-10-06 13:12] LABS: Basophils # (auto) 0.1 10 ^3/uL (0-0.2); Basophils % (auto) 0.4 % (0.0-2.0); Eosinophils # (auto) 0.2 10 ^3/uL (0-0.8); Eosinophils % (auto) 1.4 % (0.0-7.0); Hematocrit 27.6 % (36.0-46.0); Hemoglobin 9.2 g/dL (12.2-16.2); Lymphocytes # (auto) 1.3 10 ^3/uL (0.4-5.4); Lymphocytes % (auto) 9.1 % (10.0-50.0); Mean Corpuscular Hemoglobin 28.7 pg (28.0-32.0); Mean Corpuscular Hgb Conc. 33.4 g/dL (32.0-36.0); Mean Corpuscular Volume 86.1 fL (80.0-100.0); Monocytes # (auto) 0.9 10 ^3/uL (0-1.3); Monocytes % (auto) 6.4 % (0.0-12.0); Neutrophils % (auto) 82.7 % (37.0-80.0); Red Blood Cells 3.21 10^6/uL (4.0-5.20); Red Cell Distribution Width 14.8 % (11.8-14.3); White Blood Cell 14.5 10^3/uL (4.4-10.8)
[2022-10-06 13:22] LABS: Albumin 2.1 g/dL (3.4-5.0); Calcium 8.4 mg/dL (8.5-10.1); Magnesium 1.8 mg/dL (1.6-2.6); Potassium 3.6 mmol/L (3.5-5.1)
[2022-10-06 13:26] LABS: BUN/Creatinine Ratio 9.6; Bilirubin, Total 0.2 mg/dL (0.2-1.0); Phosphorus 2.9 mg/dL (2.5-4.90); Total Protein 6.2 g/dL (6.4-8.2)
[2022-10-06 17:00] VITALS: BP 110/53
[2022-10-06 17:52] VITALS: BP 166/62
== END 2022-10-06 19:35 | disposition home health service (06) | DRG 871 ==
LOC: EDBD 16:28 → ER 16:28 → TELE 09-23 06:03 → TELE-EAST 09-26 11:37
PROVIDERS: ADMIT Internal Medicine; ATTEND Nurse Practitioner
PROC: 5A1945Z Respiratory Ventilation, 24-96 Consecutive Hours (ICD-10-PCS; principal; 2022-09-23)
PROC: 0BH17EZ Insertion of Endotracheal Airway into Trachea, Via Natural or Artificial Opening (ICD-10-PCS; 2022-09-23)
PROC: 02HV33Z Insertion of Infusion Device into Superior Vena Cava, Percutaneous Approach (ICD-10-PCS; 2022-09-23)
PROC: B548ZZA Ultrasonography of Superior Vena Cava, Guidance (ICD-10-PCS; 2022-09-23)
DX: A41.9 Sepsis, unspecified organism (principal); E11.10 Type 2 diabetes mellitus with ketoacidosis without coma; G93.41 Metabolic encephalopathy; J96.00 Acute respiratory failure, unspecified whether with hypoxia or hypercapnia; N17.0 Acute kidney failure with tubular necrosis; K85.90 Acute pancreatitis without necrosis or infection, unspecified; J18.9 Pneumonia, unspecified organism; E87.1 Hypo-osmolality and hyponatremia; C19 Malignant neoplasm of rectosigmoid junction; C79.9 Secondary malignant neoplasm of unspecified site; E87.0 Hyperosmolality and hypernatremia; E87.5 Hyperkalemia; E83.39 Other disorders of phosphorus metabolism; E87.6 Hypokalemia; N20.0 Calculus of kidney; R65.20 Severe sepsis without septic shock; F17.210 Nicotine dependence, cigarettes, uncomplicated; D35.02 Benign neoplasm of left adrenal gland; D35.01 Benign neoplasm of right adrenal gland; J43.9 Emphysema, unspecified; Z20.822 Contact with and (suspected) exposure to COVID-19; F32.A Depression, unspecified; E88.09 Other disorders of plasma-protein metabolism, not elsewhere classified; F41.9 Anxiety disorder, unspecified; R16.0 Hepatomegaly, not elsewhere classified; I10 Essential (primary) hypertension; Z85.048 Personal history of other malignant neoplasm of rectum, rectosigmoid junction, and anus; Z86.16 Personal history of COVID-19; Z86.718 Personal history of other venous thrombosis and embolism; Z86.73 Personal history of transient ischemic attack (TIA), and cerebral infarction without residual deficits; Z91.14 Patient's other noncompliance with medication regimen; Z92.21 Personal history of antineoplastic chemotherapy; Z79.01 Long term (current) use of anticoagulants; Z88.5 Allergy status to narcotic agent; Z88.8 Allergy status to other drugs, medicaments and biological substances; Z86.19 Personal history of other infectious and parasitic diseases
CPT/HCPCS: 36415; 36600; 70450; 71045; 71250; 74176; 80048; 80053; 80061; 81001; 82010; 82805; 82962; 83036; 83690; 83735; 83880; 84100; 84443; 84484; 85007; 85025; 85027; 85610; 85730; 87040; 87070; 87205; 87426; 92610; 93005; 93306; 93970; 94002; 94003; 96365; 96372; 97110; 97116; 97163; 97530; 99291; C9113; G0378; J0696; J1815; J2250; J2405; J2543; J2704; J3480; J7060

== ENCOUNTER 2022-12-18 10:33 | Inpatient (IN) | payer OTHER, MEDICAID ==
[~2022-12-18] VITALS: Ht 154.9 cm; Wt 47.5 kg
[~2022-12-18 10:33] MED LIST changes: -PANT40T PO
[2022-12-18] MEDS ORDERED: DEXTROSE 10% 500 ML IV ONE (10:45)
[2022-12-18] MEDS ORDERED: DEXTROSE (50%) 50ML SYRG IV ONE (10:45)
[2022-12-18 11:00] LABS: Basophils # (auto) 0 10 ^3/uL (0-0.2); Basophils % (auto) 0.2 % (0.0-2.0); Eosinophils # (auto) 0 10 ^3/uL (0-0.8); Hemoglobin 9.6 g/dL (12.2-16.2); Lymphocytes # (auto) 0.9 10 ^3/uL (0.4-5.4); Nucleated Red Blood Cells % 0.1 %
[2022-12-18 11:02] LABS: Eosinophils % (auto) 0.1 % (0.0-7.0); Hematocrit 30.4 % (36.0-46.0); Lymphocytes % (auto) 4.4 % (10.0-50.0); Mean Corpuscular Hemoglobin 26.6 pg (28.0-32.0); Mean Corpuscular Hgb Conc. 31.6 g/dL (32.0-36.0); Monocytes # (auto) 0.3 10 ^3/uL (0-1.3); Monocytes % (auto) 1.4 % (0.0-12.0); Neutrophils # (auto) 20.1 10 ^3/uL (1.6-8.6); Neutrophils % (auto) 93.9 % (37.0-80.0); Red Blood Cells 3.61 10^6/uL (4.0-5.20); Red Cell Distribution Width 16.4 % (11.8-14.3); White Blood Cell 21.4 10^3/uL (4.4-10.8)
[2022-12-18] MEDS ORDERED: SODIUM CHLORIDE 0.9% 1,000 ML IV ONE (11:15)
[2022-12-18 11:41] LABS: Potassium 3.3 mmol/L (3.5-5.1)
[2022-12-18 11:49] LABS: Albumin 2.2 g/dL (3.4-5.0); Bilirubin, Total 0.4 mg/dL (0.2-1.0); Calcium 8.5 mg/dL (8.5-10.1); Total Protein 6.1 g/dL (6.4-8.2)
[2022-12-18] MEDS ORDERED: PIPERACILLIN-TAZO 4.5GM 100 ML IV ONE (12:44)
[2022-12-18] MEDS ORDERED: VANCOMYCIN PER PHARMACY 1,000 MG IV SCH (12:45)
[2022-12-18 12:57] LABS: Lactic Acid w/Reflex 2.6 mmol/L (0.4-2.0)
[2022-12-18] MEDS ORDERED: hydrALAZINE HCL 20 MG/ML VL IV ONE (13:45)
[2022-12-18] MEDS ORDERED: NITROGLYCERIN 0.4 MG SL TAB SL PRN (14:00)
[2022-12-18] MEDS ORDERED: VANCOMYCIN 1GM/250ML 250 ML IV ONE (14:00)
[2022-12-18] MEDS ORDERED: SODIUM CHLORIDE 0.9% 1,000 ML IV SCH (14:00)
[2022-12-18] MEDS ORDERED: DEXTROSE (50%) 50ML SYRG IV PRN (14:00)
[2022-12-18] MEDS ORDERED: MORPHINE SULFATE INJ 2 MG/ml SYRG IV PRN (14:00)
[2022-12-18] MEDS ORDERED: POTASSIUM EFFERVESENT TAB 25 MEQ PO ONE (14:00)
[2022-12-18 14:55] LABS: Lactic Acid w/Reflex 2.3 mmol/L (0.4-2.0)
[2022-12-18] MEDS: ACETAMINOPHEN 325 MG TAB PO PRN (15:01)
[2022-12-18] MEDS ORDERED: MORPHINE SULFATE INJ 2 MG/ml SYRG IV ONE (16:00)
[2022-12-18 16:22] LABS: Amphetamine Screen, Urine NEGATIVE (NEGATIVE); Barbiturate Scree,Urine NEGATIVE (NEGATIVE); Benzodiazephine Screen, Urine NEGATIVE (NEGATIVE); Cannabinoid Screen, Urine POSITIVE (NEGATIVE); Cocaine Screen, Urine NEGATIVE (NEGATIVE); Phencyclidine Screen, Urine NEGATIVE (NEGATIVE)
[2022-12-18] MEDS: ONDANSETRON HCL 4 MG/2 ML VIAL IV PRN (16:37)
[2022-12-18 16:38] LABS: Opiate Scree,Urine NEGATIVE (NEGATIVE)
[2022-12-18 16:43] LABS: Urine Bacteria NONE SEEN /hpf (None Seen); Urine Blood Negative /uL (Negative); Urine Budding Yeast FEW /hpf (None Seen); Urine Specific Gravity 1.018 (1.001-1.035); Urine WBC 26 /hpf (0 - 5)
[2022-12-18] MEDS: ACCU-CHEK COMFORT CURVE STRIP VI SCH ×2 (17:00→22:12)
[2022-12-18] MEDS: InsuLIN REG 1unit/0.01ml Soln (100units/ml) SC SCH ×2 (17:00→22:00)
[2022-12-18 17:45] LABS: Lactic Acid w/Reflex 2.5 mmol/L (0.4-2.0)
[2022-12-18] MEDS ORDERED: DEXTROSE 10% 250 ML IV ONE (17:48)
[2022-12-18] MEDS ORDERED: PIPERACILLIN-TAZO 4.5GM 100 ML IV SCH (18:00)
[2022-12-18] MEDS ORDERED: DEXTROSE 10% 250 ML Bag IV ONE (18:45)
[2022-12-18] MEDS ORDERED: hydrALAZINE HCL 20 MG/ML VL IV PRN (19:00)
[2022-12-18] MEDS: CEFEPIME 1GM/ 50ML 50 ML IV SCH ×2 (20:08→22:01)
[2022-12-18] MEDS ORDERED: D5W/SOD CHLO 0.9% 1,000 ML IV SCH (21:15)
[2022-12-18] MEDS: CARVEDILOL 12.5 MG TAB PO SCH (22:00)
[2022-12-18] MEDS ORDERED: CEFEPIME 1GM/ 50ML 50 ML IV SCH (22:00)
[2022-12-18] MEDS: APIXABAN 5 MG TAB PO SCH (22:16)
[2022-12-19] MEDS: D5W/SOD CHLO 0.9% 1,000 ML IV SCH ×2 (01:49→18:10)
[2022-12-19 03:21] VITALS: BP 191/59
[2022-12-19 05:00] VITALS: BP 110/52
[2022-12-19] MEDS: VANCOMYCIN 750mg/250ml 250 ML IV SCH ×2 (06:19→18:20)
[2022-12-19] MEDS: ACCU-CHEK COMFORT CURVE STRIP VI SCH ×4 (06:19→21:53)
[2022-12-19 06:21] LABS: Eosinophils # (auto) 0 10 ^3/uL (0-0.8); Lymphocytes # (auto) 0.8 10 ^3/uL (0.4-5.4); Mean Corpuscular Volume 84.9 fL (80.0-100.0)
[2022-12-19 06:25] LABS: Basophils # (auto) 0 10 ^3/uL (0-0.2); Basophils % (auto) 0.6 % (0.0-2.0); Eosinophils % (auto) 0.6 % (0.0-7.0); Hematocrit 22.4 % (36.0-46.0); Lymphocytes % (auto) 10.1 % (10.0-50.0); Monocytes # (auto) 0.1 10 ^3/uL (0-1.3); Monocytes % (auto) 1.8 % (0.0-12.0); Neutrophils # (auto) 7.1 10 ^3/uL (1.6-8.6); Neutrophils % (auto) 86.9 % (37.0-80.0); Red Blood Cells 2.64 10^6/uL (4.0-5.20); Red Cell Distribution Width 16.5 % (11.8-14.3); White Blood Cell 8.1 10^3/uL (4.4-10.8)
[2022-12-19 06:36] LABS: Potassium 3.9 mmol/L (3.5-5.1)
[2022-12-19] MEDS: InsuLIN REG 1unit/0.01ml Soln (100units/ml) SC SCH ×4 (06:41→22:03)
[2022-12-19] MEDS: ONDANSETRON HCL 4 MG/2 ML VIAL IV PRN ×2 (06:43→14:30)
[2022-12-19 06:44] LABS: Albumin 1.9 g/dL (3.4-5.0); BUN/Creatinine Ratio 35.8 (10.0-20.0); Bilirubin, Total 0.3 mg/dL (0.2-1.0); Calcium 7.8 mg/dL (8.5-10.1); Total Protein 4.4 g/dL (6.4-8.2)
[2022-12-19 06:49] LABS: Hemoglobin 7.4 g/dL (12.2-16.2)
[2022-12-19 08:00] VITALS: BP 131/55
[2022-12-19] MEDS: CEFEPIME 1GM/ 50ML 50 ML IV SCH ×2 (08:55→21:49)
[2022-12-19] MEDS: CARVEDILOL 12.5 MG TAB PO SCH ×2 (08:55→21:50)
[2022-12-19] MEDS: PANTOPRAZOLE 40 MG TAB PO SCH (08:56)
[2022-12-19] MEDS: APIXABAN 5 MG TAB PO SCH ×2 (08:56→21:51)
[2022-12-19] MEDS: ACETAMINOPHEN 325 MG TAB PO PRN (09:00)
[2022-12-19] MEDS ORDERED: ENOXAPARIN SOD 40 MG/0.4 ML SYRINGE SC SCH (10:00)
[2022-12-19 12:00] VITALS: BP 116/54
[2022-12-19 16:00] VITALS: BP 120/58
[2022-12-19] MEDS ORDERED: IOHEXOL 300 MG/ML 100ML BOTTLE IJ ONE (17:21)
[2022-12-19] MEDS: traMADol HCL 50 MG TAB PO PRN (18:55)
[2022-12-19 22:00] VITALS: BP 110/48
[2022-12-19] MEDS ORDERED: LEVEMIR (23:26)
[2022-12-19] MEDS ORDERED: HYDR2TAB2 PO (23:26)
[2022-12-19] MEDS ORDERED: ONDA-188 PO (23:26)
[2022-12-19] MEDS ORDERED: PANT40T PO (23:26)
[2022-12-19] MEDS ORDERED: METO10TA3 PO (23:26)
[2022-12-19] MEDS ORDERED: GABA300C10 PO (23:26)
[2022-12-19] MEDS ORDERED: PROM25TA5 PO (23:26)
[2022-12-19] MEDS ORDERED: CAPE150T PO (23:26)
[2022-12-19] MEDS ORDERED: LISI-716 PO (23:26)
[2022-12-20 05:00] VITALS: BP 131/57
[2022-12-20 06:02] LABS: Basophils # (auto) 0.1 10 ^3/uL (0-0.2); Eosinophils # (auto) 0.1 10 ^3/uL (0-0.8); Hematocrit 21.8 % (36.0-46.0); Hemoglobin 7.3 g/dL (12.2-16.2); Lymphocytes # (auto) 0.7 10 ^3/uL (0.4-5.4); Monocytes # (auto) 0.2 10 ^3/uL (0-1.3); Monocytes % (auto) 1.9 % (0.0-12.0)
[2022-12-20 06:05] LABS: Basophils % (auto) 0.6 % (0.0-2.0); Eosinophils % (auto) 0.6 % (0.0-7.0); Lymphocytes % (auto) 7.1 % (10.0-50.0); Mean Corpuscular Hemoglobin 27.6 pg (28.0-32.0); Mean Corpuscular Hgb Conc. 33.5 g/dL (32.0-36.0); Mean Corpuscular Volume 82.5 fL (80.0-100.0); Neutrophils # (auto) 8.7 10 ^3/uL (1.6-8.6); Neutrophils % (auto) 89.8 % (37.0-80.0); Nucleated Red Blood Cells % 0.2 %; Red Blood Cells 2.64 10^6/uL (4.0-5.20); White Blood Cell 9.7 10^3/uL (4.4-10.8)
[2022-12-20 06:20] LABS: Potassium 3.7 mmol/L (3.5-5.1)
[2022-12-20] MEDS: VANCOMYCIN 750mg/250ml 250 ML IV SCH (06:23)
[2022-12-20 06:40] LABS: BUN/Creatinine Ratio 29.2 (10.0-20.0); Calcium 7.2 mg/dL (8.5-10.1)
[2022-12-20] MEDS: ONDANSETRON HCL 4 MG/2 ML VIAL IV PRN (06:43)
[2022-12-20] MEDS: traMADol HCL 50 MG TAB PO PRN (06:43)
[2022-12-20] MEDS: ACCU-CHEK COMFORT CURVE STRIP VI SCH ×3 (06:43→16:42)
[2022-12-20] MEDS: InsuLIN REG 1unit/0.01ml Soln (100units/ml) SC SCH ×3 (06:48→17:42)
[2022-12-20 06:54] LABS: Albumin 1.7 g/dL (3.4-5.0); Bilirubin, Total 0.4 mg/dL (0.2-1.0)
[2022-12-20] MEDS: CEFEPIME 1GM/ 50ML 50 ML IV SCH (08:36)
[2022-12-20] MEDS: APIXABAN 5 MG TAB PO SCH (08:37)
[2022-12-20] MEDS: CARVEDILOL 12.5 MG TAB PO SCH (08:37)
[2022-12-20] MEDS: PANTOPRAZOLE 40 MG TAB PO SCH (08:37)
[2022-12-20 09:00] VITALS: BP 133/59
[2022-12-20] MEDS: D5W/SOD CHLO 0.9% 1,000 ML IV SCH ×2 (11:18→14:23)
[2022-12-20 13:00] VITALS: BP 149/68
[2022-12-20 17:00] VITALS: BP 153/61
== END 2022-12-20 18:38 | disposition hospice, home (50) | DRG 871 ==
LOC: EDBD 10:33 → ER 10:33 → TELE 13:55 → TELE-WESTW 12-19 01:50
PROVIDERS: ADMIT Nurse Practitioner Family; ATTEND Internal Medicine
PROC: 02H633Z Insertion of Infusion Device into Right Atrium, Percutaneous Approach (ICD-10-PCS; principal; 2022-12-19)
DX: A41.9 Sepsis, unspecified organism (principal); E43 Unspecified severe protein-calorie malnutrition; G92.8 Other toxic encephalopathy; Z68.1 Body mass index [BMI] 19.9 or less, adult; I10 Essential (primary) hypertension; F17.210 Nicotine dependence, cigarettes, uncomplicated; E11.649 Type 2 diabetes mellitus with hypoglycemia without coma; E87.6 Hypokalemia; R74.01 Elevation of levels of liver transaminase levels; Z88.5 Allergy status to narcotic agent; Z85.038 Personal history of other malignant neoplasm of large intestine
CPT/HCPCS: 36415; 70450; 71045; 71260; 74177; 80053; 80202; 80307; 81001; 82140; 82378; 82962; 83036; 83605; 84443; 85025; 86301; 87040; 87086; 93005; 93971; 96361; 96365; 96366; 96368; 96375; 97163; 99291; G0378; J1815; J2405; J2543